=== PATIENT | female | born 1945 | race Caucasian/White ===

== ENCOUNTER 2019-06-04 09:52 | Inpatient (IN) ==
[2019-06-04] MEDS ORDERED: ALBUT/IPRATROP 3MG/0.5MG NEB 3 ML VIAL NEB ONE (09:58)
[2019-06-04] MEDS ORDERED: NITROGLYCERIN 2% OINTMENT 30GM TUBE EXT STA (09:59)
[2019-06-04] MEDS ORDERED: FUROSEMIDE 40 MG/4 ML VIAL IV STA ×3 (10:09→11:25)
--- NOTE | 2019-06-04 10:16 | XRay Report ---
XR chest 1V portable CLINICAL HISTORY: 73 years-old Female presenting with SOB. TECHNIQUE: Portable upright AP view of the chest was obtained. COMPARISON: None. FINDINGS: Atherosclerosis of the aortic arch. Cardiac silhouette enlarged. Mild pulmonary vascular and intersti tial prominence. Bronchial wall cuffing. No focal opacity. Trace bilateral pleural effusions may be p resent. No pneumothorax. Degenerative changes of the thoracic spine. Surgical clips in the right axil la. IMPRESSION: 1. Cardiomegaly. Suspected volume overload and congestive change versus less likely a severe reactiv e or inflammatory airways disease. No merlyn pulmonary edema at this time or focal infiltrate to sugge st pneumonia. ACT 112: Negative or not required by law. Electronically signed by: Marv Tabares M.D. 06/04/2019 10:14 AM
[2019-06-04 10:31] LABS: Partial Thromboplastin Ratio 0.8; Partial Thromboplastin Time 21.4 Seconds (21.0-31.0); Prothrombin Time 10.4 Seconds (9.0-12.0)
[2019-06-04 10:38] LABS: Bilirubin,Total 0.4 mg/dl (0.2-1)
[2019-06-04 10:39] LABS: Hematocrit (blood only) 28.2 % (37-47); Mean Corpuscular Hemoglobin 28.4 pg (25-34); Mean Corpuscular Hgb Conc 28.4 g/dL (32-36); Mean Platelet Volume 11.1 fL (7.4-10.4); Platelet Count 222 K/uL (130-400); RDW Coefficient of Variation 16.3 % (11.5-14.5); Red Blood Count 2.82 M/uL (4.2-5.4); White Blood Count 19.47 K/uL (4.8-10.8)
[2019-06-04 10:40] LABS: Basophilic Stippling 1+; Basophils # (auto) 0.01 K/uL (0-0.2); Basophils % (auto) 0.1 %; Immature Granulocytes # (auto) 0.19 K/uL (0.00-0.02); Lymphocytes # (auto) 2.87 K/uL (1.2-3.4); Lymphocytes % (auto) 14.7 %; Monocytes # (auto) 2.06 K/uL (0.11-0.59); Monocytes % (auto) 10.6 %; Neutrophils # (auto) 14.34 K/uL (1.4-6.5); Neutrophils % (auto) 73.6 %; Polychromasia 1+; Stomatocytes 1+
[2019-06-04 10:41] LABS: Alanine Aminotransferase 23 U/L (12-78); Albumin Globulin Ratio 0.7 (0.9-2); Albumin Level 3.2 gm/dl (3.4-5.0); Alkaline Phosphatase 64 U/L (45-117); Aspartate Aminotransferase 33 U/L (15-37); BUN Creatinine Ratio 21.7 (10-20); Blood Urea Nitrogen 18 mg/dl (7-18); Calcium 9.6 mg/dl (8.5-10.1); Carbon Dioxide 43 mmol/L (21-32); Chloride 96 mmol/L (98-107); Est GFR (African American) 82.3; Globulin 4.9 gm/dl (2.5-4.0); Glucose 207 mg/dl (70-99); Magnesium 2.3 mg/dl (1.8-2.4); Potassium 4.2 mmol/L (3.5-5.1); Sodium 141 mmol/L (136-145); Total Protein 8.1 gm/dl (6.4-8.2); Troponin I < 0.015 ng/ml (0-0.045)
[2019-06-04 10:45] LABS: Base Excess ABG 9.7 mEq/L (-9-1.8); HCO3 ABG 42 mmol/L (19-24); Oxygen Saturation ABG 91.4 % (90-95); PCO2 ABG 126 mmHg (35-46); PO2 ABG 88 mm/Hg (80-95)
[2019-06-04 10:47] LABS: Allen Test Pos (Pos)
[2019-06-04 10:50] LABS: pH ABG 7.14 (7.35-7.45)
[2019-06-04] MEDS ORDERED: cefTRIAXone SODIUM 2,000 MG/70 ML BAG IV STA (11:13)
[2019-06-04] MEDS ORDERED: DOXYCYCLINE HYCLATE 100 MG in DEXTROSE 5% 100 ML IV STA (11:14)
[2019-06-04 11:43] LABS: Thyroid Stimulating Hormone 4.44 uIu/ml (0.300-4.500)
--- NOTE | 2019-06-04 11:59 | History & Physical Report ---
Date of Service June 04, 2019 Assessment & Plan (1) Acute and chronic respiratory failure: Admit to PCU on telemetry Vital signs every 4 hours CTA chest pending to rule out possible pulmonary embolism Continue BiPAP setting Patient is at home on supplemental oxygen approximately 3 L 24/7 Duo nebs every 4 scheduled and as needed as per RT Started ceftriaxone 2 g IV and doxycycline 100 mg IV IV twice daily in the ER Procalcitonin elevated to 0.14 Given Lasix 60, 40 mg IV while patient in the ER. Patient did not respond brisk to the first dose. DVT prophylaxis Lovenox 40 mg subcu daily CODE STATUS DNR/DNI (2) Acute exacerbation of CHF (congestive heart failure): Strict in and out Daily weight Restrict p.o. fluids to 1200 mils per day N.p.o. for now until patient assessed by speech therapist for dysphagia In the past patient was thickening her fluids and food If able to swallow low-sodium diet Monitor electrolytes and replenish Potassium 40 M EQ daily p.o.-start when patient cleared by speech Lasix 40 mg IV twice daily Continue lisinopril 5 mg p.o. daily, Continue metoprolol 25 mg p.o. daily starting tomorrow Aspirin 81 mg p.o. daily Present on Admission?: Yes (3) Anemia: Acute on chronic anemia Pending iron studies Pending serial occult blood Started Rupal sequel Continue monitoring H&H Transfuse if hemoglobin less than 8 Present on Admission?: Yes (4) Altered mental status: CT head pending Patient family denies fall mechanical or syncopal. Present on Admission?: Yes (5) Diabetes mellitus type 2 in obese: Continue two thirds of basal home dose insulin while patient in the hospital and at risk of hypoglycemia Continue sliding scale insulin Accu-Cheks before meals and at bedtime Glycemic control per pharmacy Present on Admission?: Yes (6) Dementia: Patient was lethargic on exam It was hard to determine the degree of patient dementia and type of dementia. Continue aripiprazole 5 mg p.o. daily Present on Admission?: Yes (7) COPD (chronic obstructive pulmonary disease): Continue management as already discussed respiratory failure. Continue home meds tiotropium olodaterol 2 puffs daily, Ventolin HFA 2 puffs every 4 hours as needed. Present on Admission?: Yes (8) GERD (gastroesophageal reflux disease): Continue pantoprazole 40 mg p.o. twice daily Present on Admission?: Yes (9) Hypertension: Continue home medication: Lisinopril 5 mg p.o. daily, metoprolol succinate 25 mg p.o. daily starting tomorrow Furosemide 40 mg p.o. IV twice daily Amiodarone 200 mg p.o. twice daily Present on Admission?: Yes (10) Hyperlipidemia: Lipid panel pending, patient is not on statins. Consider adding statins and or or fish oil after receiving the results. Present on Admission?: Yes (11) Dysphagia: Patient was thickening fluids at home Swallowing evaluation pending N.p.o. for now since lethargic Present on Admission?: Yes (12) Chronic pain: Continue duloxetine 30 mg p.o. twice daily Present on Admission?: Yes (13) Paroxysmal atrial fibrillation: Patient is in sinus rhythm currently Continue amiodarone 200 mg p.o. twice daily Patient is not on anticoagulation at home for paroxysmal A. fib's Probably due to risk of falling. Present on Admission?: Yes (14) HX: breast cancer: Patient's left breast is removed for breast cancer several years ago. Appears to be stable at this time Present on Admission?: Yes (15) Mild mitral regurgitation: TTE pending Ongoing issue Follow-up with TTE Present on Admission?: Yes (16) Schizoaffective disorder: Patient is stable, but lethargic today She does not take any medicine for schizophrenia affective disorder. Present on Admission?: Yes History of Present Illness Chief Complaint: Severe shortness of breath Primary Care Provider: [facility], [facility] The patient is a 73 years old female with past medical history of congestive heart failure, COPD, former smoker for many years, paroxysmal atrial fibrillation's, diabetes mellitus type 2, GERD, depression, hypertension, history of benign positional vertigo, dysphagia who was brought by EMS with a concern that patient was hypoxic while in her [facility] home. Patient moved 10 days ago from [facility] to [place] to be closer to his brother who lives in [place], [place]. Patient is resting in the bed, she is poor historian with BiPAP mask on her face and increased respiratory rate of 31-35, therefore at this point not able to give any history nor ROS but her brother gave pretty detailed history about what patient was going through in the past several months. Apparently in March patient was in [facility] for acute respiratory failure, then in April she was admitted again to the same hospital and ended up in the ICU (patient records are pending from [facility]) and finally 10 days ago patient was again in the admitted to the hospital and discharged from there and in the meantime moved to [place]. Patient is 24/7 supplemental oxygen. She usually uses 3 L, but yesterday and the day before she needed 5L to keep up with her oxygen needs above 92%. Chest x-rays are reviewed and shows cardiomegaly, suspected volume overload and congestive changes versus less likely a severe reactive or inflammatory airways disease. No merlyn pulmonary edema at this time or focal infiltrate to suggest pneumonia. Labs are reviewed: WBC is 19.47, hemoglobin 8, hematocrit 28.2, platelets 222, PT 10.4, INR 1, APTT 21.4, ABG pH 7.14, PCO2 126, PO2 88, bicarb 42, base excess 9.7, sodium 141, potassium 4.2, chloride 96, anion gap 3, BUN 18, creatinine 0.82, GFR 71, magnesium 2.3, total bili 0.4, AST 33, ALT 23, alkaline phosphatase 64, troponin 0.015, BNP 2550, total protein 8.1, albumin 3.2, globulin 4.9, procalcitonin 0.14 , TSH 4.44. Decision was made to admit patient at PCU on telemetry for acute on chronic respiratory failure, acute exacerbation of congestive heart failure, respiratory acidosis and all other comorbidities. Allergies Allergy/AdvReac Type Severity Reaction Status Date / Time prednisone Allergy Rash Unverified 06/04/19 10:41 Sulfa (Sulfonamide Allergy Unknown Unverified 06/04/19 10:41 Antibiotics) Home Medications Home Medications Medication Instructions Recorded Confirmed Type acetaminophen 350 mg PO Q4H PRN 06/04/19 06/04/19 History albuterol sulfate [Ventolin HFA] 2 puff INHALATION Q4H PRN 06/04/19 06/04/19 History amiodarone 200 mg PO BID 06/04/19 06/04/19 History aripiprazole 5 mg PO DAILY 06/04/19 06/04/19 History aspirin [Aspirin Low Dose] 81 mg PO DAILY 06/04/19 06/04/19 History docusate sodium [Stool Softener] 100 mg PO DAILY PRN 06/04/19 06/04/19 History duloxetine 30 mg PO BID 06/04/19 06/04/19 History furosemide 20 mg PO DAILY 06/04/19 06/04/19 History insulin aspart U-100 [Novolog 0 unit SUBCUT QID 06/04/19 06/04/19 History Flexpen U-100 Insulin] insulin glargine [Lantus Solostar 15 unit SUBCUT DAILY 06/04/19 06/04/19 History U-100 Insulin] lisinopril 5 mg PO DAILY 06/04/19 06/04/19 History loperamide 2 mg PO DAILY 06/04/19 06/04/19 History meclizine 25 mg PO TID PRN 06/04/19 06/04/19 History metoprolol succinate 25 mg PO DAILY 06/04/19 06/04/19 History multivitamin [Daily-Supriya] 1 tab PO DAILY 06/04/19 06/04/19 History pantoprazole 40 mg PO BID 06/04/19 06/04/19 History starch (thickening) [Thick-It] 1 ea PO TID 06/04/19 06/04/19 History tiotropium-olodaterol [Stiolto 2 puff INHALATION DAILY 06/04/19 06/04/19 History Respimat] Past Med/Surg History Medical History CHF (congestive heart failure) COPD (chronic obstructive pulmonary disease) Schizoaffective disorder Family History Other Family history non-contributory Social History Preferred Language: Slovak Feels Safe at Home: Yes Smoking Status: Unknown if ever smoked Review of Systems Review of Systems: All systems reviewed & are unremarkable except as noted in HPI & below Physical Exam Constitutional: WD/WN, vitals as above well developed, + ill appearing and + obese Eyes: PERRL, conjunctivae normal, anicteric sclerae ENMT: external ear and nose normal, oropharynx normal Neck: trachea midline, no thyromegaly Respiratory: + respiratory distress, + labored breathing, + uses accessory muscles and + hyperresonance to percussion Auscultation: + crackles, + wheezes and + bronchovesicular breath sounds Cardiovascular: Heart Sounds: normal S1, normal S2, + abnormal opening sounds and + murmur Palpation: + palpable S3 Vessels: + JVD and dorsalis pedis pulses present Extremities: + pedal edema Gastrointestinal (Abdomen): normal bowel sounds, soft, nontender, no hepatosplenomegaly Musculoskeletal: no cyanosis or clubbing, extremities motor strength 5/5 Skin: no rashes, warm and dry Neurologic: PERRL, EOMI, accommodation nl, no face palsy, no dysarthria Lethargic but arousable Psychiatric: A+Ox3, euthymic affect Lymphatic: no cervical or axillary lymphadenopathy Results & Data Vital Signs (Past 12 Hours) Vital Signs Temp Pulse Resp BP Pulse Ox 06/04/19 11:21 91 H 22 98 06/04/19 11:16 76 L 06/04/19 11:15 96 H 133/53 L 81 L 06/04/19 11:01 96 H 39 H 97 06/04/19 11:00 96 H 29 H 162/79 H 96 06/04/19 10:45 97 H 31 H 173/63 H 93 06/04/19 10:30 87 21 195/83 H 93 06/04/19 10:17 83 21 195/79 H 100 06/04/19 10:11 83 22 99 06/04/19 10:02 100 06/04/19 10:00 100 06/04/19 09:58 36.5 C 95 H 30 H 199/110 H 100 Code Status & VTE Plan Code Status DNR/DNI VTE Prophylaxis Plan VTE Prophylaxis will be ordered: Yes PG Care Time/CCT Total # of Minutes Spent Total Time Spent with Patient: Total time spent is greater than 50% in coordination of care (as documented) at patient's floor/unit and/or counseling patient: (1) Anemia Anemia type: unspecified type Qualified Code(s): D64.9 - Anemia, unspecified
[2019-06-04 12:45] LABS: Appearance Urine Turbid (Clear); Bacteria Urine Automated Negative (Negative); Bilirubin Urine Negative (Negative); Blood Urine Trace (Negative); Color Urine Dark Yellow; Epithelial Cell Urine Auto >30 /lpf (0-5); Glucose Urine UA Trace (Negative); Ketones Urine Negative (Negative); Leukocyte Esterase Urine Negative (Negative); Nitrite Urine Negative (Negative); Protein Urine 1+ (Negative); RBC Urine Automated 0-4 /hpf (0-4); Specific Gravity Urine 1.025 (1.000-1.030); Urobilinogen Urine Negative (Negative)
--- NOTE | 2019-06-04 12:59 | Electrocardiogram Report ---
Test Reason : Blood Pressure : / mmHG Vent. Rate : 090 BPM Atrial Rate : 090 BPM P-R Int : 194 ms QRS Dur : 110 ms QT Int : 368 ms P-R-T Axes : 048 033 042 degrees QTc Int : 450 ms Sinus rhythm with marked sinus arrhythmia with occasional Premature ventricular complexes Otherwise normal ECG No previous ECGs available Confirmed by Roby Jansen ([id number]) on 06/04/2019 12:59:25 PM Referred By: [facility] Confirmed By:Roby Jansen
[2019-06-04] MEDS ORDERED: IOVERSOL 100ml IV PRN (13:16)
--- NOTE | 2019-06-04 13:26 | CT Scan Report ---
CT head/brain wo con CLINICAL HISTORY: 73 years-old Female presenting with AMS. TECHNIQUE: Multidetector CT imaging of the head was performed without the use of intravenous contrast . IV contrast: None. One or more dose lowering techniques were used consistent with the principles of ALARA (as low as reasonably achievable), including automatic exposure control, mA or kV adjustment t o individual patient size, and/or use of iterative reconstruction. COMPARISON: None. CT DOSE (mGy.cm): The estimated cumulative dose is 2125.22. FINDINGS: Automatic Mold Sander topogram: Cardiomegaly. Ventricles and sulci normal in size. Hyperdense extra-axial 10 mm focus along the anterior aspect of the right frontal lobe (series 2 image 17). This is favored to represent a partially calcified mass r ather than a focus of hemorrhage. Periventricular and subcortical white matter hypoattenuation, nonsp ecific but likely indicative of chronic small vessel ischemic change. No acute territorial infarct. N o mass effect or midline shift. Bilateral CSF density extra-axial collections suspected along the fro ntal convexities, right greater than left, measuring 14 mm in thickness on the right and 11 mm in thi ckness on the left. Paranasal sinuses and mastoid air cells clear. Calvarium intact. IMPRESSION: 1. 10 mm extra-axial partially calcified mass along the right frontal convexity suspected to represe nt a meningioma. This is not favored to represent hemorrhage. 2. Bilateral subdural CSF density collections along the cerebral convexities consistent with hygroma s and/or chronic subdural hematomas. 3. Chronic small vessel ischemic change. 4. No acute intracranial abnormality. ACT 112: Negative or not required by law. Electronically signed by: Marv Tabares M.D. 06/04/2019 1:24 PM
--- NOTE | 2019-06-04 13:33 | CT Scan Report ---
CT angio chest PE protocol CLINICAL HISTORY: 73 years-old Female presenting with acute respiratory failure, possible pulmonary e mbolus. TECHNIQUE: Multidetector CT angiography of the chest was performed after administration of intravenou s contrast. 3-D volumetric and/or maximum intensity projection (MIP) images were subsequently reconst ructed for review. IV contrast: 102 mL of Optiray 320. One or more dose lowering techniques were used consistent with the principles of ALARA (as low as reasonably achievable), including automatic expos ure control, mA or kV adjustment to individual patient size, and/or use of iterative reconstruction. COMPARISON: None. CT DOSE (mGy.cm): The estimated cumulative dose is 2125.22 mGy.cm. FINDINGS: Airbrush Artist Technical topogram: Cardiomegaly. Pulmonary vasculature: The study is suboptimal for the assessment of the pulmonary vascular tree secondary to timing of the contrast bolus and respiratory motion artifact. Allowing for limited image quality, no central fillin g defect to suggest pulmonary embolus. Main pulmonary artery is not enlarged. No flattening of the in terventricular septum. No intracardiac filling defect. No reflux of contrast into the hepatic veins. Remaining chest: Soft tissues: Normal thyroid and thoracic inlet. No axillary, supraclavicular, mediastinal, or hilar lymphadenopathy. Atherosclerosis of the aorta. Multichamber enlargement of the heart. Coronary artery , aortic valve, and mitral annular calcification. Trace bilateral pleural effusions. Either vicarious excretion of contrast in the gallbladder versus layering gallbladder sludge noted. Lungs and airways: No pneumothorax. The trachea is narrowed likely in part due to the expiratory phas e of contrast. Significant secretions in the trachea. Diffuse bronchial wall thickening. Moderate to severe upper lobe predominant centrilobular emphysema. Respiratory motion artifact degrades evaluatio n of the lung parenchyma. Pulmonary arteries mildly enlarged relative to adjacent bronchi. Mild inter lobular septal thickening at the lung bases. Dependent consolidation consistent with passive atelecta sis in the setting of effusions. Additionally there is multifocal peribronchovascular predominant keaton undglass and nodular infiltrates throughout all 5 lobes though with an upper lobe predominance. The l argest solid nodule on the right is located in the right lower lobe measuring 6 mm (series 8 image 15 2). The largest solid nodule in the left is located in the left lower lobe measuring 8 mm (series 8 i mage 98). Musculoskeletal: Degenerative changes of the spine. IMPRESSION: 1. Allowing for suboptimal image quality, no evidence of pulmonary embolus. 2. Multifocal mild peribronchovascular groundglass and nodular infiltrates throughout all 5 lobes co nsistent with developing multifocal pneumonia or inflammatory pneumonitis. 3. Cardiomegaly with mild volume overload and congestive change with trace bilateral pleural effusio ns. 4. Multiple solid pulmonary nodules measuring up to 8 mm. Follow-up per Fleischner Society 2017 john mmendations below. 5. Smoking-related lung injury with moderate to severe emphysema and bronchitis. Summary of Fleischner Society 2017 Recommendations (H Jaren et al. Guidelines for management of i ncidental pulmonary nodules detected on CT images: From the Fleischner Society 2017. Radiology 2017; 284: 228-243.) SOLID NODULES Single nodule; size < 6 mm * Low risk patients: No routine follow-up * High risk patients: Optional CT at 12 months Single nodule; size 6-8 mm * Low risk patients: CT at 6-12 months, then consider CT at 18-24 months * High risk patients: CT at 6-12 months, then at 18-24 months Single nodule; size > 8 mm * Either low or high risk patients: Consider CT at 3 months, PET/CT, or tissue sampling Multiple nodules; size < 6 mm * Low risk patients: No routine follow up * High risk patients: Optional CT at 12 months Multiple nodules; size 6-8 mm * Low risk patients: CT at 3-6 months, then consider CT at 18-24 months * High risk patients: CT at 3-6 months, then at 18-24 months Multiple nodules; size > 8 mm * Low risk patients: CT at 3-6 months, then consider at 18-24 months * High risk patients: CT at 3-6 months, then at 18-24 months SUBSOLID NODULES Single ground-glass nodule * Nodule size < 6 mm: No routine follow-up * Nodule size > or = 6 mm: CT at 6-12 months to confirm persistence, then CT every 2 years until 5 y ears Single part-solid nodule * Nodule size < 6 mm: No routine follow-up * Nodules size > or = 6 mm: CT at 3-6 months to confirm persistence. If unchanged and solid componen t remains < 6 mm, annual CT should be performed for 5 years Multiple nodules * Nodule size < 6 mm: CT at 3-6 months. If stable, consider CT at 2 and 4 years. * Nodules size > or = 6 mm: CT at 3-6 months. Subsequent management based on the most suspicious nod ule(s) NOTE: 1) These guidelines apply to incidental nodules. These guidelines do NOT apply to patients younger th an 35 years, immunocompromised patients, or patients with cancer. 2) Risk categories: * Low risk patients: Minimal or absent history of smoking and/or other known risk factors * High risk patients: History of smoking, exposure to other carcinogens, emphysema, fibrosis, upper lobe location, family history of lung cancer, etc. 3) If a nodule up to 8 mm is partly solid or is ground glass, further follow-up is required after 24 months to exclude possible slow growing adenocarcinoma. ACT 112: Negative or not required by law. Electronically signed by: Marv Tabares M.D. 06/04/2019 1:32 PM
[2019-06-04] MEDS ORDERED: MECLIZINE HCL 25 MG TAB PO PRN (13:38)
[2019-06-04] MEDS ORDERED: GLUCAGON FOR INJ 1 MG VIAL SQ PRN (13:38)
[2019-06-04] MEDS ORDERED: DOCUSATE SODIUM 100 MG CAP PO PRN (13:38)
[2019-06-04] MEDS ORDERED: DEXTROSE 50% 50 ML SYRINGE IV PRN (13:38)
[2019-06-04] MEDS ORDERED: MAGNESIUM HYDROXIDE SUSP 30 ML UDC PO PRN (13:38)
[2019-06-04] MEDS ORDERED: POLYETHYLENE (MIRALAX) 17 GM PACK PO PRN (13:38)
[2019-06-04] MEDS ORDERED: ENOXAPARIN INJ 40 MG/0.4 ML SYR SQ SCH (13:38)
[2019-06-04] MEDS ORDERED: ALUMINUM/MAGNESIUM SUSP 30 ML UDC PO PRN (13:38)
[2019-06-04] MEDS ORDERED: ALBUTEROL HFA 8 GM INHALER INH PRN (13:38)
[2019-06-04] MEDS ORDERED: GLUCOSE 40% GEL 15 GM TUBE PO PRN (13:38)
[2019-06-04] MEDS ORDERED: GLUCOSE 10 TABS/TUBE PO PRN (13:38)
[2019-06-04] MEDS ORDERED: PHARMACY GLYCEMIC MGMT CONSULT PRN (14:16)
--- NOTE | 2019-06-04 14:40 | Pharmacy Report ---
Glycemic Control Consultation - Date of Service June 04, 2019 - Scope Scope: Glycemic Pharmacist consulted by Dr Shaw on 06/04/19 for glycemic control and to write orders per [facility] inpatient glycemic control protocol - Objective Weight: 69 kg Accuchecks BSG (last 24hrs): 06/04/19 10:00 Glucose 207 H Laboratory Data (last 24hrs): 06/04/19 10:00 Potassium 4.2 Carbon Dioxide 43 H* Anion Gap 3.0 Creatinine 0.82 Est Cr Clr Drug Dosing Not Reportable - Recent Pertinent Medications Outpatient Anti-diabetic Regimen: * Lantus 15 units Qam, Novolog SSI * A1c = pending Risk Factors for Insulin Resistance: * Diet: NPO - Assessment & Plan Assessment & Plan: ASSESSMENT: * 73 year old female admitted with respiratory failure, possible GI bleed. Pharmacy consulted for glycemic management. Patient currently NPO. * Patient typically on Lantus/Novolog outpatient. Did confirm with nurse at [facility] that patient did not receive any insulin this morning prior to admission. * BSG around 1000 this morning 207 mg/dL - will start reduced basal dose for NPO status and bolus insulin for glycemic management. PLAN FOR INPATIENT GLYCEMIC CONTROL: * Basal insulin * Lantus 13 units x 1 (slightly reduced for NPO status) * Will reassess BSGs/PO status tomorrow morning to determine further basal requirements * Bolus insulin * NovoLog per scale ACHS or Q6hrs while NPO * Goal Range: Low 110 mg/dL - High 140 mg/dL * Correction Factor: 30 mg/dL/unit * Nutritional / Prandial insulin per carb ratio of 1 unit per 10 grams CHO consumed * Please note that the plan above was derived based on current level of insulin resistance and hospital stress. These recommendations are appropriate for inpatient admission only. Plan of care upon discharge will need to be reassessed to avoid potential outpatient hypo/hyperglycemia. Thank you.
[2019-06-04] MEDS ORDERED: INSULIN GLARGINE SOLOSTAR 100 UNITS/ML 3 ML PEN SQ ONE (14:42)
[2019-06-04] MEDS: metroNIDAZOLE 500 MG/100 ML BAG IV SCH ×2 (15:22→22:17)
[2019-06-04] MEDS: ALBUT/IPRATROP 3MG/0.5MG NEB 3 ML VIAL NEB SCH ×3 (15:26→23:20)
[2019-06-04] MEDS: INSULIN ASPART 100 UNITS/ML 3 ML PEN SC SCH ×2 (15:34→18:34)
[2019-06-04] MEDS ORDERED: PNEUMOCOCCAL Polysaccharide Vaccine 25mcg/0.5mL vial/Syr IM ONE (16:15)
[2019-06-04] MEDS ORDERED: INFLUENZA Vaccine HIGH DOSE 65+yrs 0.5 mL Syr IM ONE (16:15)
--- NOTE | 2019-06-04 16:35 | Emergency Department Note ---
Entered by Prabhakar Du acting as a scribe for Sylvester Mott MD History of Present Illness General Chief complaint: Respiratory Problems Time Seen by Provider: 06/04/19 09:57 Source: EMS History of Present Illness Location: chest Pain Consistency: + other (worsening) Treatments prior to arrival: other (Duoneb and solumedrol) The patient is a 73 year old female who presents to the Emergency Room with complaints of SOB that is worse today. EMS states the patient stated she was SOB for a while but she is worse today. EMS states the patient wears 2L oxygen all the time. EMS states the patient was hypoxic and she was put on a non-breather that put her at 100% oxygen saturation. EMS states the patient feels cold and is diaphoretic. EMS states the patient was given a Duoneb and Solu-Medrol IV. EMS states the patient takes Lasix. EMS states the patient has not been eating well. EMS states the patient has been refusing NovoLog but they are unsure how long she has been refusing it. HPI is limited due to respiratory distress and mental state. Home Medications Home Medications Medication Instructions Recorded Confirmed Type acetaminophen 350 mg PO Q4H PRN 06/04/19 06/04/19 History albuterol sulfate [Ventolin HFA] 2 puff INHALATION Q4H PRN 06/04/19 06/04/19 History amiodarone 200 mg PO BID 06/04/19 06/04/19 History aripiprazole 5 mg PO DAILY 06/04/19 06/04/19 History aspirin [Aspirin Low Dose] 81 mg PO DAILY 06/04/19 06/04/19 History docusate sodium [Stool Softener] 100 mg PO DAILY PRN 06/04/19 06/04/19 History duloxetine 30 mg PO BID 06/04/19 06/04/19 History furosemide 20 mg PO DAILY 06/04/19 06/04/19 History insulin aspart U-100 [Novolog 0 unit SUBCUT QID 06/04/19 06/04/19 History Flexpen U-100 Insulin] insulin glargine [Lantus Solostar 15 unit SUBCUT DAILY 06/04/19 06/04/19 History U-100 Insulin] lisinopril 5 mg PO DAILY 06/04/19 06/04/19 History loperamide 2 mg PO DAILY 06/04/19 06/04/19 History meclizine 25 mg PO TID PRN 06/04/19 06/04/19 History metoprolol succinate 25 mg PO DAILY 06/04/19 06/04/19 History multivitamin [Daily-Supriya] 1 tab PO DAILY 06/04/19 06/04/19 History pantoprazole 40 mg PO BID 06/04/19 06/04/19 History starch (thickening) [Thick-It] 1 ea PO TID 06/04/19 06/04/19 History tiotropium-olodaterol [Stiolto 2 puff INHALATION DAILY 06/04/19 06/04/19 History Respimat] Allergies Allergy/AdvReac Type Severity Reaction Status Date / Time prednisone Allergy Rash Unverified 06/04/19 10:41 Sulfa (Sulfonamide Allergy Unknown Unverified 06/04/19 10:41 Antibiotics) Past Med/Surg History Medical History CHF (congestive heart failure) COPD (chronic obstructive pulmonary disease) Schizoaffective disorder Family History Other Family history non-contributory Social History Preferred Language: Mongolian Communication Ability: Effective Wellness Program Administrator Required: No marital status: Unknown Current Living Situation: Personal Care Facility Feels Safe at Home: Yes Smoking Status: Former smoker Second Hand Exposure: No ; Hx Alcohol Use: No Hx Substance Use: No Review of Systems Other (Unobtainable due to respiratory distress and mental state) Physical Exam Vital Signs Vital Signs - 24 hr 06/04/19 09:58 06/04/19 10:00 06/04/19 10:02 Temperature 36.5 C Temperature Source Oral Pulse Rate 95 H Pulse Rate [Right Radial] Pulse Rate from SpO2 Sensor Respiratory Rate 30 H Respiratory Effort / Characteristics Accessory Muscle Use Respiratory Depth Shallow Respiratory Pattern Tachypnea Blood Pressure 199/110 H Blood Pressure Mean 139 Pulse Oximetry 100 100 100 Oxygen Delivery Method Non-rebreather Non-rebreather BiPAP Oxygen Flow Rate 15 15 Fraction of Inspired Oxygen Sepsis Recent Fever Within 48 Hours No Sepsis New/Unexplained Change in Mental Status No Sepsis Action Taken by Nursing No Action Required 06/04/19 10:11 06/04/19 10:17 06/04/19 10:20 Temperature Temperature Source Pulse Rate 83 83 Pulse Rate [Right Radial] 94 H Pulse Rate from SpO2 Sensor 83 Respiratory Rate 22 21 20 Respiratory Effort / Characteristics Non-Labored Spontaneous Respiratory Depth Respiratory Pattern Blood Pressure 195/79 H Blood Pressure Mean 89 Pulse Oximetry 99 100 100 Oxygen Delivery Method BiPAP BiPAP Oxygen Flow Rate 8 Fraction of Inspired Oxygen 28 28 Sepsis Recent Fever Within 48 Hours Sepsis New/Unexplained Change in Mental Status Sepsis Action Taken by Nursing 06/04/19 10:30 06/04/19 10:33 06/04/19 10:45 Temperature Temperature Source Pulse Rate 87 97 H Pulse Rate [Right Radial] Pulse Rate from SpO2 Sensor 93 H 97 H Respiratory Rate 21 31 H Respiratory Effort / Characteristics Respiratory Depth Respiratory Pattern Blood Pressure 195/83 H 173/63 H Blood Pressure Mean 104 72 Pulse Oximetry 93 93 Oxygen Delivery Method BiPAP BiPAP BiPAP Oxygen Flow Rate 98 Fraction of Inspired Oxygen Sepsis Recent Fever Within 48 Hours Sepsis New/Unexplained Change in Mental Status Sepsis Action Taken by Nursing 06/04/19 11:00 06/04/19 11:01 06/04/19 11:15 Temperature Temperature Source Pulse Rate 96 H 96 H 96 H Pulse Rate [Right Radial] Pulse Rate from SpO2 Sensor 96 H 95 H 96 H Respiratory Rate 29 H 39 H Respiratory Effort / Characteristics Respiratory Depth Respiratory Pattern Blood Pressure 162/79 H 133/53 L Blood Pressure Mean 115 84 Pulse Oximetry 96 97 81 L Oxygen Delivery Method Oxygen Flow Rate Fraction of Inspired Oxygen Sepsis Recent Fever Within 48 Hours Sepsis New/Unexplained Change in Mental Status Sepsis Action Taken by Nursing 06/04/19 11:16 06/04/19 11:21 Temperature Temperature Source Pulse Rate 91 H Pulse Rate [Right Radial] Pulse Rate from SpO2 Sensor 97 H Respiratory Rate 22 Respiratory Effort / Characteristics Accessory Muscle Use Respiratory Depth Shallow Respiratory Pattern Tachypnea Blood Pressure Blood Pressure Mean Pulse Oximetry 76 L 98 Oxygen Delivery Method BiPAP Oxygen Flow Rate 98 Fraction of Inspired Oxygen 28 Sepsis Recent Fever Within 48 Hours Sepsis New/Unexplained Change in Mental Status Sepsis Action Taken by Nursing GENERAL: Patient is in significant respiratory distress. HEENT: No acute trauma, normocephalic atraumatic, mucous membranes moist, no nasal congestion, no scleral icterus. NECK: No stridor, no adenopathy, no meningismus, trachea is midline. LUNGS: Markedly diminished breath sounds. Few crackles and few wheezes heard. Appears to be in significant respiratory distress. Accessory muscle use. Increased respiratory rate. HEART: Without murmurs gallops or rubs, regular rate and rhythm. ABDOMEN: Soft, nontender, bowel sounds positive, no hernias, no peritonitis. EXTREMITIES: No cyanosis or edema, full range of motion of all the joints without pain or difficulty, no signs for acute trauma. NEUROLOGIC: Somnolent. Arouses to voice or touch. Does move all extremities. SKIN: Sweaty. Pale. Extremities are cool to tough. Course Course 0954: The patient was evaluated in room B10, and a complete history and physical examination were performed. 0957: The patient is DNR. 1030: I spoke to the patient's brother who is the POA. He confirms the patient is DNR. He states the patient was at a hospital in [place] for the same thing recently. He states he moved the patient here to be closer to her. He states the patient has only been at [facility] for about a week. 1055: I discussed the patient's case with Dr. Shaw - [facility]. She will evaluate the patient for further management. 1121: I reevaluated the patient. She looks a little better. She is more awake and her BP has improved. She is starting to diurese. Administered Medications Albuterol (Duoneb) 3 ml NEB Q4R [facility] Stop: 07/04/19 14:59 Last Admin: 06/04/19 15:26 Dose: 3 ml Documented by: [id number] Furosemide 40 mg/ Syringe 4 mls @ 4 mls/min IV [id number] [facility] Stop: 07/04/19 16:59 Last Admin: 06/04/19 17:50 Dose: 4 mls/min Documented by: [id number] Metronidazole (Flagyl) 500 mg in 100 mls @ 100 mls/hr IV Q8 [facility] Stop: 06/11/19 14:14 Last Infusion: 06/04/19 16:33 Dose: 0 mls/hr Documented by: [id number] Admin: 06/04/19 15:22 Dose: 100 mls/hr Documented by: [id number] Insulin Aspart (Novolog Flexpen) 0 units SC Q6 [facility]; Protocol Stop: 07/04/19 14:29 Last Admin: 06/04/19 15:34 Dose: 5 units Documented by: [id number] Cosigned by: [id number] Ioversol (Optiray 320 100ml) 102 ml IV ONCE PRN PRN Reason: Interaction Checking Stop: 06/08/19 13:15 Last Admin: 06/04/19 13:17 Dose: 102 ml Documented by: [id number] Discontinued Medications Albuterol (Duoneb) 12 ml NEB ONE ONE Stop: 06/04/19 09:59 Last Admin: 06/04/19 10:21 Dose: 12 ml Documented by: [id number] Furosemide (Lasix) 60 mg IV NOW STA Stop: 06/04/19 10:10 Last Admin: 06/04/19 10:17 Dose: 60 mg Documented by: [id number] Furosemide (Lasix) 40 mg IV NOW STA Stop: 06/04/19 11:26 Last Admin: 06/04/19 11:40 Dose: 40 mg Documented by: [id number] Ceftriaxone Sodium (Rocephin) 2,000 mg in 70 mls @ 140 mls/hr IV NOW STA Stop: 06/04/19 11:42 Last Infusion: 06/04/19 12:53 Dose: 0 mls/hr Documented by: [id number] Admin: 06/04/19 12:23 Dose: 140 mls/hr Documented by: [id number] Doxycycline Hyclate 100 mg/ (Dextrose) 110 mls @ 50 mls/hr IV NOW STA Stop: 06/04/19 13:25 Last Infusion: 06/04/19 15:55 Dose: 0 mls/hr Documented by: [id number] Admin: 06/04/19 12:23 Dose: 50 mls/hr Documented by: [id number] Insulin Glargine (Lantus Solostar Pen) 13 units SQ NOW ONE; Protocol Stop: 06/04/19 14:43 Last Admin: 06/04/19 15:33 Dose: 13 units Documented by: [id number] Cosigned by: [id number] Nitroglycerin (Nitro-Bid 2%) 3 inch EXT NOW STA Stop: 06/04/19 10:00 Last Admin: 06/04/19 10:05 Dose: 3 inch Documented by: [id number] Critical Care Time Critical Care Time: Yes Total Critical Care Time: 48 I have personally spent 48 minutes of critical care time in the direct management of this patient. This includes bedside care, interpretation of diagnostic studies, and testing, discussion with consultants, patient, and [facility], and other required patient management activities. This 48 minutes is in excess of all separately billable procedures. Medical Decision Making Differential Diagnosis Differential Diagnosis includes but is not limited to CHF, pneumonia, exacerbation of COPD, pnuemothroax, bronchitis, [place], electrolyte imbalance, ane brian, and renal failure. Medical Records Attestation: I reviewed the patient's medical records. Home Medications Current Medication List: was personally reviewed by me Laboratory Data Attestation: I reviewed the patient's lab results. Result diagrams: 06/04/19 10:00 06/04/19 10:00 Lab Results 06/04/19 06/04/19 06/04/19 Range/Units 10:00 10:00 10:00 WBC 19.47 H (4.8-10.8) K/uL RBC 2.82 L (4.2-5.4) M/uL Hgb 8.0 L (12.0-16.0) g/dL Hct 28.2 L (37-47) % MCV 100.0 (80-100) fL MCH 28.4 (25-34) pg MCHC 28.4 L (32-36) g/dL RDW Std Deviation 58.0 H (36.4-46.3) fL RDW Coeff of Cydney 16.3 H (11.5-14.5) % Plt Count 222 (130-400) K/uL MPV 11.1 H (7.4-10.4) fL Immature Gran % (Auto) 1.0 % Neut % (Auto) 73.6 % Lymph % (Auto) 14.7 % Aiken % (Auto) 10.6 % Eos % (Auto) 0.0 % Baso % (Auto) 0.1 % Immature Gran # (Auto) 0.19 H (0.00-0.02) K/uL Neut # (Auto) 14.34 H (1.4-6.5) K/uL Lymph # (Auto) 2.87 (1.2-3.4) K/uL Aiken # (Auto) 2.06 H (0.11-0.59) K/uL Eos # (Auto) 0.00 (0-0.5) K/uL Baso # (Auto) 0.01 (0-0.2) K/uL Polychromasia 1+ Basophilic Stippling 1+ Stomatocytes 1+ PT 10.4 (9.0-12.0) Seconds INR 1.0 (0.9-1.1) APTT 21.4 (21.0-31.0) Seconds PTT Ratio 0.8 ABG pH (7.35-7.45) ABG pCO2 (35-46) mmHg ABG pO2 (80-95) mm/Hg ABG HCO3 (19-24) mmol/L ABG O2 Saturation (90-95) % ABG Base Excess (-9-1.8) mEq/L Anuj Test (Pos) Barometric Pressure mm/Hg Oxygen Given Sodium 141 (136-145) mmol/L Potassium 4.2 (3.5-5.1) mmol/L Chloride 96 L (98-107) mmol/L Carbon Dioxide 43 H* (21-32) mmol/L Anion Gap 3.0 (3-11) BUN 18 (7-18) mg/dl Creatinine 0.82 (0.6-1.2) mg/dl Est Cr Clr Drug Dosing Not Reportable Est GFR ( Amer) 82.3 Est GFR (Non-Af Amer) 71.0 BUN/Creatinine Ratio 21.7 H (10-20) Glucose 207 H (70-99) mg/dl Calcium 9.6 (8.5-10.1) mg/dl Magnesium 2.3 (1.8-2.4) mg/dl Total Bilirubin 0.4 (0.2-1) mg/dl AST 33 (15-37) U/L ALT 23 (12-78) U/L Alkaline Phosphatase 64 (45-117) U/L Troponin I < 0.015 (0-0.045) ng/ml NT-Pro-B Natriuret Pep (0-900) pg/ml Total Protein 8.1 (6.4-8.2) gm/dl Albumin 3.2 L (3.4-5.0) gm/dl Globulin 4.9 H (2.5-4.0) gm/dl Albumin/Globulin Ratio 0.7 L (0.9-2) Procalcitonin (0-0.5) ng/ml TSH (0.300-4.500) uIu/ml Urine Color Urine Appearance (Clear) Urine pH (4.5-7.5) Ur Specific Badger (1.000-1.030) Urine Protein (Negative) Urine Glucose (UA) (Negative) Urine Ketones (Negative) Urine Blood (Negative) Urine Nitrite (Negative) Urine Bilirubin (Negative) Urine Urobilinogen (Negative) Ur Leukocyte Esterase (Negative) Urine WBC (Auto) (0-5) /hpf Urine RBC (Auto) (0-4) /hpf U Hyaline Cast (Auto) (0-5) /lpf U Epithel Cells (Auto) (0-5) /lpf Urine Bacteria (Auto) (Negative) Hepatitis C Ab Screen (Neg) 06/04/19 06/04/19 06/04/19 Range/Units 10:00 10:00 10:00 WBC (4.8-10.8) K/uL RBC (4.2-5.4) M/uL Hgb (12.0-16.0) g/dL Hct (37-47) % MCV (80-100) fL MCH (25-34) pg MCHC (32-36) g/dL RDW Std Deviation (36.4-46.3) fL RDW Coeff of Cydney (11.5-14.5) % Plt Count (130-400) K/uL MPV (7.4-10.4) fL Immature Gran % (Auto) % Neut % (Auto) % Lymph % (Auto) % Aiken % (Auto) % Eos % (Auto) % Baso % (Auto) % Immature Gran # (Auto) (0.00-0.02) K/uL Neut # (Auto) (1.4-6.5) K/uL Lymph # (Auto) (1.2-3.4) K/uL Aiken # (Auto) (0.11-0.59) K/uL Eos # (Auto) (0-0.5) K/uL Baso # (Auto) (0-0.2) K/uL Polychromasia Basophilic Stippling Stomatocytes PT (9.0-12.0) Seconds INR (0.9-1.1) APTT (21.0-31.0) Seconds PTT Ratio ABG pH (7.35-7.45) ABG pCO2 (35-46) mmHg ABG pO2 (80-95) mm/Hg ABG HCO3 (19-24) mmol/L ABG O2 Saturation (90-95) % ABG Base Excess (-9-1.8) mEq/L Anuj Test (Pos) Barometric Pressure mm/Hg Oxygen Given Sodium (136-145) mmol/L Potassium (3.5-5.1) mmol/L Chloride (98-107) mmol/L Carbon Dioxide (21-32) mmol/L Anion Gap (3-11) BUN (7-18) mg/dl Creatinine (0.6-1.2) mg/dl Est Cr Clr Drug Dosing Est GFR ( Amer) Est GFR (Non-Af Amer) BUN/Creatinine Ratio (10-20) Glucose (70-99) mg/dl Calcium (8.5-10.1) mg/dl Magnesium (1.8-2.4) mg/dl Total Bilirubin (0.2-1) mg/dl AST (15-37) U/L ALT (12-78) U/L Alkaline Phosphatase (45-117) U/L Troponin I (0-0.045) ng/ml NT-Pro-B Natriuret Pep 2550 H (0-900) pg/ml Total Protein (6.4-8.2) gm/dl Albumin (3.4-5.0) gm/dl Globulin (2.5-4.0) gm/dl Albumin/Globulin Ratio (0.9-2) Procalcitonin 0.14 (0-0.5) ng/ml TSH 4.440 (0.300-4.500) uIu/ml Urine Color Urine Appearance (Clear) Urine pH (4.5-7.5) Ur Specific Badger (1.000-1.030) Urine Protein (Negative) Urine Glucose (UA) (Negative) Urine Ketones (Negative) Urine Blood (Negative) Urine Nitrite (Negative) Urine Bilirubin (Negative) Urine Urobilinogen (Negative) Ur Leukocyte Esterase (Negative) Urine WBC (Auto) (0-5) /hpf Urine RBC (Auto) (0-4) /hpf U Hyaline Cast (Auto) (0-5) /lpf U Epithel Cells (Auto) (0-5) /lpf Urine Bacteria (Auto) (Negative) Hepatitis C Ab Screen Neg (Neg) 06/04/19 06/04/19 Range/Units 10:20 10:32 WBC (4.8-10.8) K/uL RBC (4.2-5.4) M/uL Hgb (12.0-16.0) g/dL Hct (37-47) % MCV (80-100) fL MCH (25-34) pg MCHC (32-36) g/dL RDW Std Deviation (36.4-46.3) fL RDW Coeff of Cydney (11.5-14.5) % Plt Count (130-400) K/uL MPV (7.4-10.4) fL Immature Gran % (Auto) % Neut % (Auto) % Lymph % (Auto) % Aiken % (Auto) % Eos % (Auto) % Baso % (Auto) % Immature Gran # (Auto) (0.00-0.02) K/uL Neut # (Auto) (1.4-6.5) K/uL Lymph # (Auto) (1.2-3.4) K/uL Aiken # (Auto) (0.11-0.59) K/uL Eos # (Auto) (0-0.5) K/uL Baso # (Auto) (0-0.2) K/uL Polychromasia Basophilic Stippling Stomatocytes PT (9.0-12.0) Seconds INR (0.9-1.1) APTT (21.0-31.0) Seconds PTT Ratio ABG pH 7.14 L* (7.35-7.45) ABG pCO2 126 H (35-46) mmHg ABG pO2 88 (80-95) mm/Hg ABG HCO3 42 H (19-24) mmol/L ABG O2 Saturation 91.4 (90-95) % ABG Base Excess 9.7 H (-9-1.8) mEq/L Anuj Test Pos (Pos) Barometric Pressure 742.2 mm/Hg Oxygen Given 28% Sodium (136-145) mmol/L Potassium (3.5-5.1) mmol/L Chloride (98-107) mmol/L Carbon Dioxide (21-32) mmol/L Anion Gap (3-11) BUN (7-18) mg/dl Creatinine (0.6-1.2) mg/dl Est Cr Clr Drug Dosing Est GFR ( Amer) Est GFR (Non-Af Amer) BUN/Creatinine Ratio (10-20) Glucose (70-99) mg/dl Calcium (8.5-10.1) mg/dl Magnesium (1.8-2.4) mg/dl Total Bilirubin (0.2-1) mg/dl AST (15-37) U/L ALT (12-78) U/L Alkaline Phosphatase (45-117) U/L Troponin I (0-0.045) ng/ml NT-Pro-B Natriuret Pep (0-900) pg/ml Total Protein (6.4-8.2) gm/dl Albumin (3.4-5.0) gm/dl Globulin (2.5-4.0) gm/dl Albumin/Globulin Ratio (0.9-2) Procalcitonin (0-0.5) ng/ml TSH (0.300-4.500) uIu/ml Urine Color Dark Yellow Urine Appearance Turbid A (Clear) Urine pH 5.0 (4.5-7.5) Ur Specific Badger 1.025 (1.000-1.030) Urine Protein 1+ H (Negative) Urine Glucose (UA) Trace H (Negative) Urine Ketones Negative (Negative) Urine Blood Trace H (Negative) Urine Nitrite Negative (Negative) Urine Bilirubin Negative (Negative) Urine Urobilinogen Negative (Negative) Ur Leukocyte Esterase Negative (Negative) Urine WBC (Auto) 1-5 (0-5) /hpf Urine RBC (Auto) 0-4 (0-4) /hpf U Hyaline Cast (Auto) 10-30 H (0-5) /lpf U Epithel Cells (Auto) >30 H (0-5) /lpf Urine Bacteria (Auto) Negative (Negative) Hepatitis C Ab Screen (Neg) Imaging Data Radiologist's Impression: Radiology results as stated below per my review and the radiologist's interpretation: XR chest 1V portable CLINICAL HISTORY: 73 years-old Female presenting with SOB. TECHNIQUE: Portable upright AP view of the chest was obtained. COMPARISON: None. FINDINGS: Atherosclerosis of the aortic arch. Cardiac silhouette enlarged. Mild pulmonary vascular and interstitial prominence. Bronchial wall cuffing. No focal opacity. Trace bilateral pleural effusions may be present. No pneumothorax. Degenerative changes of the thoracic spine. Surgical clips in the right axilla. IMPRESSION: 1. Cardiomegaly. Suspected volume overload and congestive change versus less likely a severe reactive or inflammatory airways disease. No merlyn pulmonary edema at this time or focal infiltrate to suggest pneumonia. ACT 112: Negative or not required by law. Electronically signed by: Marv Tabares M.D. 06/04/2019 10:14 AM ECG Data Attestation: I personally reviewed and interpreted this ECG as follows: Rate (beats per minute): 90 Rhythm: + sinus rhythm ECG Intervals/blocks: + Normal QT-c (QT-c is 450) ECG ST segments: no ST elevation ECG Findings: + PACs, + PVCs and + Other (Artifact present) MDM Narrative There is a significant leukocytosis at 19,000, this could be consistent with infection or the stress of her presentation. The patient was anemic with a hemoglobin of 8. Platelet count was normal. No coagulopathy. ABG shows a respiratory acidosis with a pH of 7.14 and a PCO2 of 126. Renal panel testing shows a higher CO2 value, no kidney failure. No concerning liver enzyme elevation. EKG shows a sinus rhythm, there was no acute ischemia. Cardiac enzyme testing x1 is not consistent with acute cardiac injury. Urinalysis does not show evidence for infection. Chest film shows some CHF, I did not see any evidence for pneumonia, there was no pneumothorax. On exam, the patient was quite short of breath. She seemed in respiratory distress. Looking through her paperwork, she is a DNR. The patient was aggressively managed. She was placed on BiPAP with a continuous DuoNeb. She was given IV Lasix 60 mg. She had a Nation catheter placed to monitor her urine output. She was placed on 3 inches of nitroglycerin paste. The patient is somewhat improved compared to when she first arrived. She seems to be responding favorably to the above treatment. I spoke to the patient, I spoke with her brother who is the power of synthetic cloth binding cutter. Both understand the seriousness of her condition. The patient appears to be in respiratory distress secondary to fluid overload and CHF. She had a very similar recent admission to a different hospital. I spoke to case management, I spoke with the on-call hospitalist. Admission paperwork is underway. Impression & Plan Respiratory failure, CHF (congestive heart failure), Respiratory distress, Confusion, Anemia, Respiratory acidosis Discharge Plan Visit Data *Final* Discharge Date/Time: 06/04/19 12:52 Chief Complaint: Respiratory Problems ED Provider: Sylvester Mott Discharge Problem: Respiratory failure, CHF (congestive heart failure), Respiratory distress, Confusion, Anemia, Respiratory acidosis Patient Disposition: Admitted As Inpatient Discharge Instructions Interventions: ED Discharge Assessment Last Done: 06/04/19 12:52 Discharge Problem: Respiratory failure Qualifiers: Chronicity: unspecified Respiratory failure complication: hypoxia and hypercapnia Qualified Code(s): J96.91 - Respiratory failure, unspecified with hypoxia CHF (congestive heart failure) Qualifiers: Heart failure type: unspecified Heart failure chronicity: acute Qualified Code(s): I50.9 - Heart failure, unspecified Anemia Qualifiers: Anemia type: unspecified type Qualified Code(s): D64.9 - Anemia, unspecified The scribe's documentation has been prepared under my direction and personally reviewed by me in its entirety. I confirm that the note above accurately reflects all work, treatment, procedures, and medical decision making performed by me.
[2019-06-04 16:52] LABS: Influenza A virus by PCR Neg for Influ A (Neg); Influenza B virus by PCR Neg for Influ B (Neg)
[2019-06-04] MEDS ORDERED: Nursing to Pharmacy Communication ONE (17:46)
[2019-06-04] MEDS: FUROSEMIDE 40 MG in SYRINGE 0 ML IV SCH (17:50)
--- NOTE | 2019-06-04 19:35 | Magnetic Resonance Report ---
MRI OF THE BRAIN WITHOUT CONTRAST CLINICAL HISTORY: Acute change in mental status. Abnormal head CT. Possible meningioma versus hemorrh age. Bilateral subdural fluid collections. COMPARISON STUDY: Noncontrast head CT dated 06/04/2019 FINDINGS: Sagittal T1, axial diffusion, proton density and T2 weighted axial, coronal FLAIR, and axial T1-weigh vamshi images were acquired. There is a 12 mm right frontal extra-axial mass. The location is typical for a meningioma. This paral lels T1 and T2 parenchymal signal. As this study is performed in a noncontrast fashion, enhancement c haracteristics cannot be assessed. There are bifrontal CSF signal intensity fluid collections consist ent with small subdural hygromas. There is no evidence of acute hemorrhage. Axial diffusion-weighted images reveal no evidence of acute or subacute infarction. There is no evidence of ventricular dilatation. Proton density T2-weighted and FLAIR images reveal scattered foci of increased T2 signal within the w shima matter, likely on a small vessel basis. There are no abnormal flow voids. Foci of increased T2 signal within the right mastoid are likely inflammatory. IMPRESSION: 1. No acute intracranial findings 2. No evidence of acute or subacute infarction 3. 12 mm extra-axial right frontal lesion, likely representing a meningioma 4. Bilateral subdural CSF collections, consistent with chronic hygromas. No evidence of acute hemorrh age 5. Mild inflammatory changes within the right mastoid ACT 112: Negative or not required by law. Electronically signed by: Stefano Arthur M.D. 06/04/2019 7:33 PM
[2019-06-04] MEDS ORDERED: FUROSEMIDE 40 MG/4 ML VIAL IV SCH (21:00)
[2019-06-04] MEDS: AMIODARONE 200 MG TAB PO SCH (21:38)
[2019-06-04] MEDS: DULOXETINE HCL 30 MG CAP PO SCH (21:38)
[2019-06-04] MEDS: PANTOprazole 40 MG TAB PO SCH (21:39)
[2019-06-04] MEDS: DOXYCYCLINE HYCLATE 100 MG in DEXTROSE 5% 100 ML IV SCH (22:17)
[2019-06-05] MEDS: INSULIN ASPART 100 UNITS/ML 3 ML PEN SC SCH ×5 (00:20→23:33)
[2019-06-05] MEDS: ALBUT/IPRATROP 3MG/0.5MG NEB 3 ML VIAL NEB SCH ×6 (02:29→23:43)
[2019-06-05] MEDS: metroNIDAZOLE 500 MG/100 ML BAG IV SCH ×3 (05:19→22:04)
[2019-06-05 06:39] LABS: Estimated Average Glucose 166 mg/dl; Hemoglobin A1C 7.4 % (4.5-5.6)
[2019-06-05 06:50] LABS: Hematocrit (blood only) 23.6 % (37-47); Hemoglobin 6.9 g/dL (12.0-16.0); Mean Corpuscular Hgb Conc 29.2 g/dL (32-36); Mean Corpuscular Volume 99.2 fL (80-100); Mean Platelet Volume 10.2 fL (7.4-10.4); Platelet Count 158 K/uL (130-400); RDW Coefficient of Variation 16.2 % (11.5-14.5); RDW Standard Deviation 57.7 fL (36.4-46.3); Red Blood Count 2.38 M/uL (4.2-5.4); White Blood Count 6.74 K/uL (4.8-10.8)
[2019-06-05 07:24] LABS: Basophilic Stippling 1+; Immature Granulocytes # (auto) 0.03 K/uL (0.00-0.02); Immature Granulocytes % (auto) 0.4 %; Lymphocytes # (auto) 0.41 K/uL (1.2-3.4); Lymphocytes % (auto) 6.1 %; Monocytes # (auto) 0.31 K/uL (0.11-0.59); Monocytes % (auto) 4.6 %; Neutrophils # (auto) 5.99 K/uL (1.4-6.5); Neutrophils % (auto) 88.9 %; Reticulocyte % 3.6 % (0.5-2.0); Reticulocytes # 0.09 10^6/uL (0.02-0.10)
[2019-06-05 07:28] LABS: Albumin Globulin Ratio 0.6 (0.9-2); Albumin Level 2.9 gm/dl (3.4-5.0); BUN Creatinine Ratio 29.9 (10-20); Bilirubin,Total 0.3 mg/dl (0.2-1); Calcium 9.2 mg/dl (8.5-10.1); Creatinine Clr Calc Pharmacy 55.6 ml/min; Est GFR (African American) 77.7; Ferritin 123.2 ng/ml (8-388); Globulin 4.6 gm/dl (2.5-4.0); Potassium 4.4 mmol/L (3.5-5.1); Total Protein 7.5 gm/dl (6.4-8.2)
--- NOTE | 2019-06-05 08:12 | Neurology Consultation ---
Date of Consultation June 05, 2019 Assessment & Plan (1) Schizoaffective disorder: (2) Dementia: (3) Diabetes mellitus type 2 in obese: (4) Altered mental status: (5) Acute and chronic respiratory failure: (6) Acute exacerbation of CHF (congestive heart failure): (7) Hyperlipidemia: (8) Hypertension: (9) Bilateral chronic intracranial subdural hematoma: Ellen Iniguez is a 73 yo woman w/ PMH of schizoaffective disorder, h/o breast cancer, HTN, HLD, GERD, DM, unspecified dementia, COPD on 2L NC, CHF and chronic pain who p/t [facility] after onset of hypoxia and AMS. # AMS: most likely 2/2 to her underlying hypoxia from acute on chronic respiratory failure as mental status improved with BiPAP. She doesn't have any signs of infection on UA/CXR, blood cultures are pending. Would also rule out any diabetic foot ulcers or pressure sores, as this could also be causing her AMS. She is on duloxetine and abilify at home for her underlying mental health disorder (schizoaffective disorder), neither at significantly high doses that should be affecting her mental status (has also been on these for some time so not a new medication). She appears to be significantly improved over her presentation yesterday. - continue to manage respiratory failure as already doing per primary team # Chronic bilateral subdural hematomas: noted on CTH and MRI brain. There are no signs of acute infarct or midline shift on imaging necessitating immediate transfer for neurosurgical evaluation. Given compounding co-morbidities, would allow her current respiratory failure to improve and better determine what her baseline is from brother before deciding if she needs to have surgical decompression. Does not currently have any neurological symptoms that would require urgent neurosurgical consultation or decompression at this time - will obtain further history from brother about her baseline -Okay to continue aspirin 81 mg daily -Would recommend repeating CT head without contrast in 1 month to assess for stability or sooner if any new neurological symptoms -She should follow-up with neurosurgery as an outpatient to discuss future decompression in a non-urgent manner -Please obtain records from outside hospitalization including any CT or MRI scans to determine if there has been enlargement of her bilateral subdurals in the last month as this could electronic data interchange specialist Thank you for this interesting consult. Please call or text with any questions. History of Present Illness Attending Physician: Marv Shaw MD History of Present Illness Ellen Iniguez is a 73 yo woman w/ PMH of schizoaffective disorder, h/o breast cancer, HTN, HLD, GERD, DM, unspecified dementia, COPD on 2L NC, CHF and chronic pain who p/t [facility] after onset of hypoxia and AMS. She p/t [facility] ED after EMS found her hypoxic, cold, diaphoretic, refusing home insulin and poor PO intake. She was placed on a non-rebreather and given a duoneb/IV solumedrol prior to ED presentation. In the ED, patient afebrile, HR 95, RR 30 with accessory muscle usage, BP 199/110, satting 100% on 15L non- rebreather. She was placed on BiPAP for respiratory distress. She also received IV lasix for volume overload/CHF exacerbation. Labs notable for WBC 19.47, Hb 8.0, Plts 222, Na 141, K 4.2, CO2 43, BUN 18, Cr 0.82, glucose 207, INR 1.0, Ca/Mg WNL, LFTs WNL, troponin negative, TSH WNL, BNP 2550, HCV negative, ABG-> pH 7.14, pCO2 126, pO2 88, O2 sat 91.4%; UA + for trace glucose, 1+ protein, no bacteria/leuk esterase/nitrites. CXR showed cardiomegaly, no pneumonia, and volume overload vs severe inflammatory airway disease. CTA chest showed no evidence of PE. EKG showed NSR w/ [id number] and frequent PVCs. Independent review of CT head w/o shows bilateral chronic SDH (right ~ 14mm in thickness, left ~10mm in thickness) without any noticeable midline shift; there was also generalized atrophy, mild SVID and a right frontal meningioma. Independ ent review of MRI brain brain shows no acute infarct, chronic bilateral SDH as noted on the CTH, mild SVID, and right frontal meningioma better appreciated on the CTH given lack of contrast. Neurology is consulted for the bilateral chronic SDH. On examination today, patient reports that she is not doing well today. She feels SOB and has pain in her LLE that is chronic in nature but bothersome. She also reports that she remembers having a poor appetite and not taking her insulin prior to coming to the hospital, but does not remember coming in the ambulance or much of yesterday. She reports having dizziness but denies any new numbness, tingling, weakness or headache at this time. She reports having many tests performed at her last hospitalization but does not recall being told that she has any head bleed during that hospitalization. Attempted to call brother Oralia (POA) to obtain baseline, however, he was unavailable. Allergies Allergy/AdvReac Type Severity Reaction Status Date / Time prednisone Allergy Rash Unverified 06/04/19 10:41 Sulfa (Sulfonamide Allergy Unknown Unverified 06/04/19 10:41 Antibiotics) Home Medications Home Medications Medication Instructions Recorded Confirmed Type acetaminophen 350 mg PO Q4H PRN 06/04/19 06/04/19 History albuterol sulfate [Ventolin HFA] 2 puff INHALATION Q4H PRN 06/04/19 06/04/19 History amiodarone 200 mg PO BID 06/04/19 06/04/19 History aripiprazole 5 mg PO DAILY 06/04/19 06/04/19 History aspirin [Aspirin Low Dose] 81 mg PO DAILY 06/04/19 06/04/19 History docusate sodium [Stool Softener] 100 mg PO DAILY PRN 06/04/19 06/04/19 History duloxetine 30 mg PO BID 06/04/19 06/04/19 History furosemide 20 mg PO DAILY 06/04/19 06/04/19 History insulin aspart U-100 [Novolog 0 unit SUBCUT QID 06/04/19 06/04/19 History Flexpen U-100 Insulin] insulin glargine [Lantus Solostar 15 unit SUBCUT DAILY 06/04/19 06/04/19 History U-100 Insulin] lisinopril 5 mg PO DAILY 06/04/19 06/04/19 History loperamide 2 mg PO DAILY 06/04/19 06/04/19 History meclizine 25 mg PO TID PRN 06/04/19 06/04/19 History metoprolol succinate 25 mg PO DAILY 06/04/19 06/04/19 History multivitamin [Daily-Supriya] 1 tab PO DAILY 06/04/19 06/04/19 History pantoprazole 40 mg PO BID 06/04/19 06/04/19 History starch (thickening) [Thick-It] 1 ea PO TID 06/04/19 06/04/19 History tiotropium-olodaterol [Stiolto 2 puff INHALATION DAILY 06/04/19 06/04/19 History Respimat] Patient History Medical History CHF (congestive heart failure) COPD (chronic obstructive pulmonary disease) Schizoaffective disorder Family History Other Family history non-contributory Social History Preferred Language: Venezuelan Communication Ability: Effective Press Writer Required: No marital status: Unknown Current Living Situation: Personal Care Facility Feels Safe at Home: Yes Smoking Status: Former smoker Second Hand Exposure: No ; Hx Alcohol Use: No Hx Substance Use: No Review of Systems Review of Systems: 14 point review of systems completed and negative except as in HPI. Physical Exam Physical Exam: General Exam: GEN: NAD, lying in bed with BiPAP on. HEENT: No conjunctival injection, no rhinorrhea. CV: RRR, no peripheral edema PULM: Comfortable appearing on BiPAP. Neuro Exam: MS: Awake and Alert. Oriented to person, being in a hospital, thought it was April and wasn't sure about date/year but did think it was Friday. Speech fluent and appropriate without dysarthria or paraphasic errors. Language intact including naming, comprehension, repetition. Cognition and memory grossly intact. Attention intact. No neglect. CN: Visual amor full in left eye, diminished vision in right eye 2/2 cataract. No extinction to double simultaneous stimuli. No optic disc edema observed on fundoscopic exam. PERRLA OU. EOMI without nystagmus. Facial sensation intact to LT. Facial muscles full and symmetric. Hearing intact to conversation. Uvula midline with symmetric palatal elevation. Shoulder shrug normal. Tongue midline. MOTOR: Normal bulk and tone. No pronator drift. BUE strength 5/5 at deltoids, biceps, triceps, wrist flexors and extensors, and hand grasp bilaterally. BLE strength 5-/5 at iliopsoas, 5/5 hamstrings, 5/5 quadriceps, 5-/5 tibialis anterior (decreased 2/2 pain), and 5/5 gastrocnemius bilaterally. REFLEXES: 1+ at biceps, triceps, brachioradialis, trace patella and absent Achilles bilaterally. Toes mute bilaterally. SENSORY: Intact to LT without extinction to double simultaneous stimuli. Vibration and temperature intact in BUEs, decreased up to the knees in BLEs. COORDINATION: No dysmetria or ataxia on [id number] bilaterally. Normal Dash bilaterally. GAIT: Deferred given physical status Results & Data Vital Signs (Past 12 Hours) Vital Signs Temp Pulse Pulse Resp BP Pulse Ox 06/05/19 07:11 83 20 100 06/05/19 06:46 36.9 C 82 20 145/67 H 100 06/05/19 04:52 99 06/05/19 04:24 99 06/05/19 02:32 73 25 H 98 06/05/19 02:30 53 L 25 H 98 06/05/19 00:25 36.4 C L 65 20 82/46 L 100 06/05/19 00:00 71 06/04/19 23:21 61 23 98 06/04/19 23:20 61 23 98 06/04/19 22:12 67 18 95 Laboratory Results Abnormal lab results 06/04/19 06/04/19 06/04/19 Range/Units 10:00 10:00 10:00 WBC 19.47 H (4.8-10.8) K/uL RBC 2.82 L (4.2-5.4) M/uL Hgb 8.0 L (12.0-16.0) g/dL Hct 28.2 L (37-47) % MCHC 28.4 L (32-36) g/dL RDW Std Deviation 58.0 H (36.4-46.3) fL RDW Coeff of Cyd[place] 16.3 H (11.5-14.5) % MPV 11.1 H (7.4-10.4) fL Reticulocyte % (Auto) (0.5-2.0) % Immature Gran # (Auto) 0.19 H (0.00-0.02) K/uL Neut # (Auto) 14.34 H (1.4-6.5) K/uL Lymph # (Auto) (1.2-3.4) K/uL [place] # (Auto) 2.06 H (0.11-0.59) K/uL ABG pH (7.35-7.45) ABG pCO2 (35-46) mmHg ABG HCO3 (19-24) mmol/L ABG Base Excess (-9-1.8) mEq/L Chloride 96 L (98-107) mmol/L Carbon Dioxide 43 H* (21-32) mmol/L Anion Gap (3-11) BUN (7-18) mg/dl BUN/Creatinine Ratio 21.7 H (10-20) Glucose 207 H (70-99) mg/dl POC Glucose (70-99) Hemoglobin A1c (4.5-5.6) % TIBC (250-450) mcg/dl NT-Pro-B Natriuret Pep 2550 H (0-900) pg/ml Albumin 3.2 L (3.4-5.0) gm/dl Globulin 4.9 H (2.5-4.0) gm/dl Albumin/Globulin Ratio 0.7 L (0.9-2) Urine Appearance (Clear) Urine Protein (Negative) Urine Glucose (UA) (Negative) Urine Blood (Negative) U Hyaline Cast (Auto) (0-5) /lpf U Epithel Cells (Auto) (0-5) /lpf 06/04/19 06/04/19 06/04/19 Range/Units 10:00 10:20 10:32 WBC (4.8-10.8) K/uL RBC (4.2-5.4) M/uL Hgb (12.0-16.0) g/dL Hct (37-47) % MCHC (32-36) g/dL RDW Std Deviation (36.4-46.3) fL RDW Coeff of Cydney (11.5-14.5) % MPV (7.4-10.4) fL Reticulocyte % (Auto) (0.5-2.0) % Immature Gran # (Auto) (0.00-0.02) K/uL Neut # (Auto) (1.4-6.5) K/uL Lymph # (Auto) (1.2-3.4) K/uL [place] # (Auto) (0.11-0.59) K/uL ABG pH 7.14 L* (7.35-7.45) ABG pCO2 126 H (35-46) mmHg ABG HCO3 42 H (19-24) mmol/L ABG Base Excess 9.7 H (-9-1.8) mEq/L Chloride (98-107) mmol/L Carbon Dioxide (21-32) mmol/L Anion Gap (3-11) BUN (7-18) mg/dl BUN/Creatinine Ratio (10-20) Glucose (70-99) mg/dl POC Glucose (70-99) Hemoglobin A1c 7.4 H (4.5-5.6) % TIBC (250-450) mcg/dl NT-Pro-B Natriuret Pep (0-900) pg/ml Albumin (3.4-5.0) gm/dl Globulin (2.5-4.0) gm/dl Albumin/Globulin Ratio (0.9-2) Urine Appearance Turbid A (Clear) Urine Protein 1+ H (Negative) Urine Glucose (UA) Trace H (Negative) Urine Blood Trace H (Negative) U Hyaline Cast (Auto) 10-30 H (0-5) /lpf U Epithel Cells (Auto) >30 H (0-5) /lpf 06/04/19 06/04/19 06/04/19 Range/Units 14:33 15:32 16:10 WBC (4.8-10.8) K/uL RBC (4.2-5.4) M/uL Hgb (12.0-16.0) g/dL Hct (37-47) % MCHC (32-36) g/dL RDW Std Deviation (36.4-46.3) fL RDW Coeff of Cydney (11.5-14.5) % MPV (7.4-10.4) fL Reticulocyte % (Auto) (0.5-2.0) % Immature Gran # (Auto) (0.00-0.02) K/uL Neut # (Auto) (1.4-6.5) K/uL Lymph # (Auto) (1.2-3.4) K/uL [place] # (Auto) (0.11-0.59) K/uL ABG pH (7.35-7.45) ABG pCO2 (35-46) mmHg ABG HCO3 (19-24) mmol/L ABG Base Excess (-9-1.8) mEq/L Chloride (98-107) mmol/L Carbon Dioxide (21-32) mmol/L Anion Gap (3-11) BUN (7-18) mg/dl BUN/Creatinine Ratio (10-20) Glucose (70-99) mg/dl POC Glucose 262 H 262 H 255 H (70-99) Hemoglobin A1c (4.5-5.6) % TIBC (250-450) mcg/dl NT-Pro-B Natriuret Pep (0-900) pg/ml Albumin (3.4-5.0) gm/dl Globulin (2.5-4.0) gm/dl Albumin/Globulin Ratio (0.9-2) Urine Appearance (Clear) Urine Protein (Negative) Urine Glucose (UA) (Negative) Urine Blood (Negative) U Hyaline Cast (Auto) (0-5) /lpf U Epithel Cells (Auto) (0-5) /lpf 06/04/19 06/04/19 06/05/19 Range/Units 18:32 20:36 00:17 WBC (4.8-10.8) K/uL RBC (4.2-5.4) M/uL Hgb (12.0-16.0) g/dL Hct (37-47) % MCHC (32-36) g/dL RDW Std Deviation (36.4-46.3) fL RDW Coeff of Cydney (11.5-14.5) % MPV (7.4-10.4) fL Reticulocyte % (Auto) (0.5-2.0) % Immature Gran # (Auto) (0.00-0.02) K/uL Neut # (Auto) (1.4-6.5) K/uL Lymph # (Auto) (1.2-3.4) K/uL [place] # (Auto) (0.11-0.59) K/uL ABG pH (7.35-7.45) ABG pCO2 (35-46) mmHg ABG HCO3 (19-24) mmol/L ABG Base Excess (-9-1.8) mEq/L Chloride (98-107) mmol/L Carbon Dioxide (21-32) mmol/L Anion Gap (3-11) BUN (7-18) mg/dl BUN/Creatinine Ratio (10-20) Glucose (70-99) mg/dl POC Glucose 239 H 195 H 165 H (70-99) Hemoglobin A1c (4.5-5.6) % TIBC (250-450) mcg/dl NT-Pro-B Natriuret Pep (0-900) pg/ml Albumin (3.4-5.0) gm/dl Globulin (2.5-4.0) gm/dl Albumin/Globulin Ratio (0.9-2) Urine Appearance (Clear) Urine Protein (Negative) Urine Glucose (UA) (Negative) Urine Blood (Negative) U Hyaline Cast (Auto) (0-5) /lpf U Epithel Cells (Auto) (0-5) /lpf 06/05/19 06/05/19 06/05/19 Range/Units 05:59 05:59 06:05 WBC (4.8-10.8) K/uL RBC 2.38 L (4.2-5.4) M/uL Hgb 6.9 L* (12.0-16.0) g/dL Hct 23.6 L (37-47) % MCHC 29.2 L (32-36) g/dL RDW Std Deviation 57.7 H (36.4-46.3) fL RDW Coeff of Cydney 16.2 H (11.5-14.5) % MPV (7.4-10.4) fL Reticulocyte % (Auto) 3.6 H (0.5-2.0) % Immature Gran # (Auto) 0.03 H (0.00-0.02) K/uL Neut # (Auto) (1.4-6.5) K/uL Lymph # (Auto) 0.41 L (1.2-3.4) K/uL [place] # (Auto) (0.11-0.59) K/uL ABG pH (7.35-7.45) ABG pCO2 (35-46) mmHg ABG HCO3 (19-24) mmol/L ABG Base Excess (-9-1.8) mEq/L Chloride 96 L (98-107) mmol/L Carbon Dioxide 45 H* (21-32) mmol/L Anion Gap 1.0 L (3-11) BUN 26 H (7-18) mg/dl BUN/Creatinine Ratio 29.9 H (10-20) Glucose 115 H (70-99) mg/dl POC Glucose 133 H (70-99) Hemoglobin A1c (4.5-5.6) % TIBC 238 L (250-450) mcg/dl NT-Pro-B Natriuret Pep (0-900) pg/ml Albumin 2.9 L (3.4-5.0) gm/dl Globulin 4.6 H (2.5-4.0) gm/dl Albumin/Globulin Ratio 0.6 L (0.9-2) Urine Appearance (Clear) Urine Protein (Negative) Urine Glucose (UA) (Negative) Urine Blood (Negative) U Hyaline Cast (Auto) (0-5) /lpf U Epithel Cells (Auto) (0-5) /lpf 06/05/19 Range/Units 07:19 WBC (4.8-10.8) K/uL RBC (4.2-5.4) M/uL Hgb (12.0-16.0) g/dL Hct (37-47) % MCHC (32-36) g/dL RDW Std Deviation (36.4-46.3) fL RDW Coeff of Cyd[place] (11.5-14.5) % MPV (7.4-10.4) fL Reticulocyte % (Auto) (0.5-2.0) % Immature Gran # (Auto) (0.00-0.02) K/uL Neut # (Auto) (1.4-6.5) K/uL Lymph # (Auto) (1.2-3.4) K/uL [place] # (Auto) (0.11-0.59) K/uL ABG pH (7.35-7.45) ABG pCO2 (35-46) mmHg ABG HCO3 (19-24) mmol/L ABG Base Excess (-9-1.8) mEq/L Chloride (98-107) mmol/L Carbon Dioxide (21-32) mmol/L Anion Gap (3-11) BUN (7-18) mg/dl BUN/Creatinine Ratio (10-20) Glucose (70-99) mg/dl POC Glucose 124 H (70-99) Hemoglobin A1c (4.5-5.6) % TIBC (250-450) mcg/dl NT-Pro-B Natriuret Pep (0-900) pg/ml Albumin (3.4-5.0) gm/dl Globulin (2.5-4.0) gm/dl Albumin/Globulin Ratio (0.9-2) Urine Appearance (Clear) Urine Protein (Negative) Urine Glucose (UA) (Negative) Urine Blood (Negative) U Hyaline Cast (Auto) (0-5) /lpf U Epithel Cells (Auto) (0-5) /lpf PG Care Time/CCT Total # of Minutes Spent Total Time Spent with Patient: Total time spent is greater than 50% in coordination of care (as documented) at patient's floor/unit and/or counseling patient:
[2019-06-05 08:32] LABS: Folate (Folic Acid) > 24.00 ng/ml (>5.38); Vitamin B12 1420 pg/ml (211-911)
[2019-06-05 08:33] LABS: Base Excess ABG 11.2 mEq/L (-9-1.8); HCO3 ABG 42 mmol/L (19-24); Oxygen Saturation ABG 94.2 % (90-95); PCO2 ABG 114 mmHg (35-46); PO2 ABG 115 mm/Hg (80-95)
[2019-06-05] MEDS ORDERED: DiphenhydrAMINE HCL 50 MG/ML VIAL IV STA (08:33)
[2019-06-05 08:34] LABS: Allen Test Pos (Pos)
[2019-06-05 08:35] LABS: pH ABG 7.18 (7.35-7.45)
[2019-06-05] MEDS: TIOTROPIUM BROMIDE 5 PUFF/90 MCG INH INH SCH (08:50)
[2019-06-05] MEDS: SALMETEROL XINAFOATE 50MCG 28 BLISTER INH INH SCH ×2 (08:51→20:10)
[2019-06-05] MEDS ORDERED: ASPIRIN 81 MG ECTAB PO SCH (09:00)
[2019-06-05] MEDS: methylPREDNISolone 40 MG in SYRINGE 0 ML IV SCH ×2 (09:27→20:08)
[2019-06-05] MEDS: lisinopriL 5 MG TAB PO SCH (10:21)
[2019-06-05] MEDS: DULOXETINE HCL 30 MG CAP PO SCH ×2 (10:21→20:09)
[2019-06-05] MEDS: MULTIVITAMIN TAB PO SCH (10:21)
[2019-06-05] MEDS: METOPROLOL SUCC 25MG EXT REL TAB PO SCH (10:21)
[2019-06-05] MEDS: PANTOprazole 40 MG TAB PO SCH ×2 (10:21→20:09)
[2019-06-05] MEDS: FUROSEMIDE 40 MG in SYRINGE 0 ML IV SCH ×2 (10:22→18:17)
[2019-06-05] MEDS: AMIODARONE 200 MG TAB PO SCH ×2 (10:22→20:09)
--- NOTE | 2019-06-05 10:26 | Pharmacy Report ---
Pharmacy Glycemic Short Note 2 - Date of Service June 05, 2019 - Glycemic Short BSG Results (Last 24 hours): 06/04/19 06/04/19 06/04/19 10:00 14:33 15:32 Glucose 207 H POC Glucose 262 H 262 H 06/04/19 06/04/19 06/04/19 16:10 18:32 20:36 Glucose POC Glucose 255 H 239 H 195 H 06/05/19 06/05/19 06/05/19 00:17 05:59 06:05 Glucose 115 H POC Glucose 165 H 133 H 06/05/19 07:19 Glucose POC Glucose 124 H OUTPATIENT ANTIDIABETIC REGIMEN: * Lantus 15 units qAM * Novolog per SS * A1c 7.4% on 06/04/19 ASSESSMENT: 06/05 * Patient received 13 units of basal and 10 units of prandial insulin yesterday * Fasting = 115 mg/dL * Postprandial BSGs improved yesterday * Now starting Solu-medrol 40 mg q12h so insulin requirements will increase 06/04 * 73 year old female admitted with respiratory failure, possible GI bleed. Pharmacy consulted for glycemic management. Patient currently NPO. * Patient typically on Lantus/Novolog outpatient. Did confirm with nurse at [facility] that patient did not receive any insulin this morning prior to admission. * BSG around 1000 this morning 207 mg/dL - will start reduced basal dose for NPO status and bolus insulin for glycemic management. PLAN FOR INPATIENT GLYCEMIC CONTROL: * Hold outpatient oral diabetes medications * Basal insulin - increase * Lantus 15 units qAM * Additional 5 units qPM if BSGs 180 or above (will be total of wt based/stress of 2) * Bolus insulin - tighten CF/CR for steroid initiation * NovoLog per scale ACHS or Q6hrs while NPO * Goal Range: Low 110 mg/dL - High 140 mg/dL * Correction Factor: 25 mg/dL/unit * Nutritional / Prandial insulin per carb ratio of 1 unit per 8 grams CHO consumed
[2019-06-05] MEDS: DOXYCYCLINE HYCLATE 100 MG in DEXTROSE 5% 100 ML IV SCH ×2 (10:34→20:08)
[2019-06-05] MEDS: ACETAMINOPHEN 325 MG TAB PO PRN ×3 (10:34→20:17)
[2019-06-05] MEDS ORDERED: INSULIN GLARGINE SOLOSTAR 100 UNITS/ML 3 ML PEN SQ SCH ×3 (11:00→21:00)
[2019-06-05] MEDS: ARIPiprazole 5 MG TAB PO SCH (11:29)
[2019-06-05] MEDS ORDERED: SODIUM CHLORIDE 0.9% 250 ML IV PRN (12:41)
[2019-06-05] MEDS ORDERED: DiphenhydrAMINE HCL 50 MG/ML VIAL IV PRN (12:42)
[2019-06-05] MEDS: cefTRIAXone SODIUM 2,000 MG/70 ML BAG IV SCH (12:52)
--- NOTE | 2019-06-05 12:53 | Hospitalist Progress Note ---
Date of Service June 05, 2019 Assessment & Plan (1) Acute and chronic respiratory failure: Continue admission at PCU on telemetry Vital signs every 4 hours CTA chest -no pulmonary edema Continue BiPAP setting Patient is at home on supplemental oxygen approximately 3 L 24/7 Duo nebs every 4 scheduled and as needed as per RT Started ceftriaxone 2 g IV and doxycycline 100 mg IV IV twice daily in the ER Procalcitonin elevated to 0.14 Given Lasix 60, 40 mg IV while patient in the ER. Patient did not respond brisk to the first dose. DVT prophylaxis Lovenox 40 mg subcu daily CODE STATUS DNR/DNI (2) Acute exacerbation of CHF (congestive heart failure): Strict in and out Daily weight TTE shows left ventricular systolic function is normal. No regional wall motion abnormality noted. There is moderate concentric left ventricular hypertrophy. Ejection fraction is 55 to 60%. Probably mild aortic stenosis. Restrict p.o. fluids to 1200 mils per day N.p.o. for now until patient assessed by speech therapist for dysphagia In the past patient was thickening her fluids and food If able to swallow low-sodium diet Monitor electrolytes and replenish Potassium 40 M EQ daily p.o.-start when patient cleared by speech Lasix 40 mg IV twice daily Continue lisinopril 5 mg p.o. daily, Continue metoprolol 25 mg p.o. daily starting tomorrow Aspirin 81 mg p.o. daily (3) Anemia: Acute on chronic anemia Pending iron studies Pending serial occult blood Started Rupal sequel Continue monitoring H&H Transfuse if hemoglobin less than 8 (4) Altered mental status: Appreciate neurology recommendations: Altered mental status is most likely to underlining hypoxia in the setting of acute on chronic respiratory failure and that improved with BiPAP. Chronic bilateral subdural hematomas: noted on CT of the head and MRI brain. There are no signs of acute infarct or midline shift on imaging necessitating immediate transfer for neurosurgical evaluation. Given compounding co- morbidities, would allow her current respiratory failure to improve and better determine what her baseline is from brother before deciding if she needs to have surgical decompression. Does not currently have any neurological symptoms that would require urgent neurosurgical consultation or decompression at this time Continue aspirin [address] head without contrast in 1 month to assess for stability or sooner if any new neurological symptoms Follow-up with neurosurgery as an outpatient to discuss future decompression in a non-urgent manner We will obtain old records from [facility] especially CT and MRIs scans of the brain. (5) Diabetes mellitus type 2 in obese: Continue two thirds of basal home dose insulin while patient in the hospital and at risk of hypoglycemia Continue sliding scale insulin Accu-Cheks before meals and at bedtime Glycemic control per pharmacy (6) Dementia: Patient was lethargic on exam It was hard to determine the degree of patient dementia and type of dementia. Continue aripiprazole 5 mg p.o. daily (7) COPD (chronic obstructive pulmonary disease): Continue management as already discussed respiratory failure. Continue home meds tiotropium olodaterol 2 puffs daily, Ventolin HFA 2 puffs every 4 hours as needed. (8) GERD (gastroesophageal reflux disease): Continue pantoprazole 40 mg p.o. twice daily (9) Hypertension: Continue home medication: Lisinopril 5 mg p.o. daily, metoprolol succinate 25 mg p.o. daily starting tomorrow Furosemide 40 mg p.o. IV twice daily Amiodarone 200 mg p.o. twice daily (10) Hyperlipidemia: Lipid panel triglycerides 74, cholesterol 193 borderline LDL 111, VLDL 15, HDL 67. Will start atorvastatin 40 mg p.o. nightly. (11) Dysphagia: Patient was thickening fluids at home Swallowing evaluation pending N.p.o. for now since lethargic (12) Chronic pain: Continue duloxetine 30 mg p.o. twice daily (13) Paroxysmal atrial fibrillation: Patient is in sinus rhythm currently Continue amiodarone 200 mg p.o. twice daily Patient is not on anticoagulation at home for paroxysmal A. fib's Probably due to risk of falling. (14) HX: breast cancer: Patient's left breast is removed for breast cancer several years ago. Appears to be stable at this time (15) Mild mitral regurgitation: TTE as discussed above Ongoing issue (16) Schizoaffective disorder: Patient is stable, but lethargic today She does not take any medicine for schizophrenia affective disorder. (17) Anemia: H&H dropped from 01/12 8.2-6.9/23.6 Iron study TIBC 238, ferritin 123.2, vitamin B12 1420, folate over 24. Anemia of chronic disease with decreased iron binding capacity. We will try to increase iron binding capacity adding ferrous sequel. Patient signed a consent to receive blood transfusion. We will give 1 PRBC at the time because of acute exacerbation of congestive hear t failure and to avoid volume overload. Posttransfusion CBC Present on Admission?: Yes Subjective Patient seen and examined at the bedside. Resting comfortably in the bed , and her brother and [id number] are next to her bedside. We discussed all new information received from the CT of the head, MRI of the brain, blood work. Per family patient he is in personal care. She just moved in and it is located in [place] so she is closer to her brother and [id number]. Patient has schizophrenia affective disorder and on occasion is very stubborn and paranoid and it is difficult to take care of her if she is refusing the care. Since March patient has been hospitalized 3 times. She was is estranged from her family and did not allow anybody to come and see her. Family is not aware of patient falls but appears that patient had multiple falls including but not limited to right ankle injury, chronic subdural hematoma bilateral, and her other injuries. Patient has only limited insight, with difficulties. To understand her current situation. Last time when she was in [facility] patient supposed to receive blood for acute anemia but she refused. Today patient is stable on BiPAP. Her hemoglobin is 6.9 and down from 8 which was yesterday. Patient reports no bleeding, bruising, melena, hematuria, hematemesis. Family is agreeable to transfuse 1 unit of blood possibly 2 later on since patient also has acute exacerbation of congestive heart failure and needs to be watched for volume overload. Review of Systems Review of Systems: All systems reviewed & are unremarkable except as noted in HPI & below Physical Exam Constitutional: WD/WN, vitals as above well developed, + ill appearing and + obese Eyes: PERRL, conjunctivae normal, anicteric sclerae ENMT: external ear and nose normal, oropharynx normal Neck: trachea midline, no thyromegaly Respiratory: normal respiratory effort and + hyperresonance to percussion; no labored breathing and does not use accessory muscles Auscultation: + crackles (Improving), + wheezes (Improving) and + bronchovesicular breath sounds Cardiovascular: Heart Sounds: normal S1, normal S2, + abnormal opening sounds and + murmur Palpation: + palpable S3 Vessels: + JVD and dorsalis pedis pulses present Extremities: + pedal edema (Improving) Gastrointestinal (Abdomen): normal bowel sounds, soft, nontender, no hepatosplenomegaly Musculoskeletal: no cyanosis or clubbing, extremities motor strength 5/5 Skin: no rashes, warm and dry Neurologic: PERRL, EOMI, accommodation nl, no face palsy, no dysarthria Psychiatric: A+Ox3, euthymic affect Lymphatic: no cervical or axillary lymphadenopathy Results & Data Vital Signs (Past 12 Hours) Vital Signs Temp Pulse Pulse Resp BP Pulse Ox 06/05/19 11:16 36.4 C L 81 16 121/62 100 06/05/19 11:05 100 H 81 30 H 100 06/05/19 08:59 91 H 27 H 94 06/05/19 07:11 83 20 100 06/05/19 06:46 36.9 C 82 20 145/67 H 100 06/05/19 04:52 99 06/05/19 04:24 99 06/05/19 02:32 73 25 H 98 06/05/19 02:30 53 L 25 H 98 PG Care Time/CCT Total # of Minutes Spent Total Time Spent with Patient: Total time spent is greater than 50% in coordination of care (as documented) at patient's floor/unit and/or counseling patient: (1) Anemia Anemia type: unspecified type Qualified Code(s): D64.9 - Anemia, unspecified
--- NOTE | 2019-06-05 14:25 | XRay Report ---
RIGHT ANKLE 3 VIEWS HISTORY: pain in the right ankle COMPARISON: None. FINDINGS: There is no fracture or dislocation. Soft tissues are unremarkable. No radiopaque foreign b odies. The bones are osteopenic. IMPRESSION: No fractures. ACT 112: Negative or not required by law. Electronically signed by: Hector Diaz M.D. 06/05/2019 2:24 PM
[2019-06-05 19:53] LABS: Hematocrit (blood only) 26.1 % (37-47); Hemoglobin 7.7 g/dL (12.0-16.0)
[2019-06-06] MEDS: ALBUT/IPRATROP 3MG/0.5MG NEB 3 ML VIAL NEB SCH ×6 (03:35→23:30)
[2019-06-06] MEDS: ACETAMINOPHEN 325 MG TAB PO PRN ×3 (04:09→21:56)
[2019-06-06 04:54] LABS: Base Excess ABG 15.5 mEq/L (-9-1.8); HCO3 ABG 43 mmol/L (19-24); Oxygen Saturation ABG 95.3 % (90-95); PCO2 ABG 73 mmHg (35-46); PO2 ABG 85 mm/Hg (80-95); pH ABG 7.39 (7.35-7.45)
[2019-06-06 04:56] LABS: Allen Test POS (Pos)
[2019-06-06] MEDS: metroNIDAZOLE 500 MG/100 ML BAG IV SCH ×3 (05:43→21:33)
[2019-06-06] MEDS: INSULIN ASPART 100 UNITS/ML 3 ML PEN SC SCH ×4 (05:45→21:38)
[2019-06-06 06:10] LABS: Hematocrit (blood only) 26.2 % (37-47); Hemoglobin 7.8 g/dL (12.0-16.0); Immature Granulocytes # (auto) 0.03 K/uL (0.00-0.02); Immature Granulocytes % (auto) 0.7 %; Lymphocytes # (auto) 0.34 K/uL (1.2-3.4); Lymphocytes % (auto) 8.2 %; Mean Corpuscular Hemoglobin 28.3 pg (25-34); Mean Corpuscular Hgb Conc 29.8 g/dL (32-36); Mean Corpuscular Volume 94.9 fL (80-100); Mean Platelet Volume 9.8 fL (7.4-10.4); Monocytes # (auto) 0.16 K/uL (0.11-0.59); Monocytes % (auto) 3.8 %; Neutrophils # (auto) 3.63 K/uL (1.4-6.5); Neutrophils % (auto) 87.3 %; Platelet Count 143 K/uL (130-400); RDW Coefficient of Variation 16.4 % (11.5-14.5); RDW Standard Deviation 56.3 fL (36.4-46.3); Red Blood Count 2.76 M/uL (4.2-5.4); White Blood Count 4.16 K/uL (4.8-10.8)
[2019-06-06 06:33] LABS: Stomatocytes 2+
[2019-06-06 06:44] LABS: Albumin Level 2.8 gm/dl (3.4-5.0); BUN Creatinine Ratio 36.4 (10-20); Bilirubin,Total 0.4 mg/dl (0.2-1); Calcium 9.2 mg/dl (8.5-10.1); Creatinine Clr Calc Pharmacy 51.2 ml/min; Est GFR (African American) 71.6; Est GFR (Non-African American) 61.8; Globulin 4.3 gm/dl (2.5-4.0); Total Protein 7.1 gm/dl (6.4-8.2)
[2019-06-06 07:36] LABS: Albumin Globulin Ratio 0.6 (0.9-2)
[2019-06-06] MEDS ORDERED: INSULIN GLARGINE SOLOSTAR 100 UNITS/ML 3 ML PEN SQ SCH (09:00)
[2019-06-06] MEDS: DOXYCYCLINE HYCLATE 100 MG in DEXTROSE 5% 100 ML IV SCH ×2 (09:15→21:31)
[2019-06-06] MEDS: FUROSEMIDE 40 MG in SYRINGE 0 ML IV SCH ×2 (10:11→16:56)
[2019-06-06] MEDS: methylPREDNISolone 40 MG in SYRINGE 0 ML IV SCH ×2 (10:11→21:32)
[2019-06-06] MEDS: DULOXETINE HCL 30 MG CAP PO SCH ×2 (10:20→21:32)
[2019-06-06] MEDS: METOPROLOL SUCC 25MG EXT REL TAB PO SCH (10:20)
[2019-06-06] MEDS: PANTOprazole 40 MG TAB PO SCH ×2 (10:21→21:32)
[2019-06-06] MEDS: ARIPiprazole 5 MG TAB PO SCH (10:21)
[2019-06-06] MEDS: AMIODARONE 200 MG TAB PO SCH ×2 (10:21→21:31)
[2019-06-06] MEDS: lisinopriL 5 MG TAB PO SCH (10:22)
[2019-06-06] MEDS: TIOTROPIUM BROMIDE 5 PUFF/90 MCG INH INH SCH (10:30)
[2019-06-06] MEDS: SALMETEROL XINAFOATE 50MCG 28 BLISTER INH INH SCH ×2 (10:31→21:31)
[2019-06-06] MEDS: MULTIVITAMIN TAB PO SCH (10:31)
--- NOTE | 2019-06-06 10:34 | Pharmacy Report ---
Pharmacy Glycemic Short Note 2 - Date of Service June 06, 2019 - Glycemic Short BSG Results (Last 24 hours): 06/05/19 06/05/19 06/05/19 12:08 18:13 20:19 Glucose POC Glucose 161 H 159 H 142 H 06/05/19 06/06/19 06/06/19 23:30 05:42 05:44 Glucose 160 H POC Glucose 180 H 179 H OUTPATIENT ANTIDIABETIC REGIMEN: * Lantus 15 units qAM * Novolog per SS * A1c 7.4% on 06/04/19 ASSESSMENT: 06/06 * Patient received 15 units of basal and 4 units of bolus insulin yesterday * She remains NPO. Continues on Solu-medrol 40 mg IV q12h. * BSGs have ranged from 142-180 mg/dL in the past 24 hours * She did not receive additional basal last night since her BSG was below 180 at HS; however, she could have used this dose as BSGs have trended upwards. Will increase dose this AM and then split BID from tomorrow. * Plans to start PN tomorrow since patient has been NPO 06/05 * Patient received 13 units of basal and 10 units of bolus insulin yesterday * Fasting = 115 mg/dL * Postprandial BSGs improved yesterday * Now starting Solu-medrol 40 mg q12h so insulin requirements will increase 06/04 * 73 year old female admitted with respiratory failure, possible GI bleed. Pharmacy consulted for glycemic management. Patient currently NPO. * Patient typically on Lantus/Novolog outpatient. Did confirm with nurse at [facility] that patient did not receive any insulin this morning prior to admission. * BSG around 1000 this morning 207 mg/dL - will start reduced basal dose for NPO status and bolus insulin for glycemic management. PLAN FOR INPATIENT GLYCEMIC CONTROL: * Basal insulin - increase * Lantus 20 units qAM, then * Lantus 10 units BID from 06/07 * Bolus insulin - no change * NovoLog per scale ACHS or Q6hrs while NPO * Goal Range: Low 110 mg/dL - High 140 mg/dL * Correction Factor: 25 mg/dL/unit * Nutritional / Prandial insulin per carb ratio of 1 unit per 8 grams CHO consumed Discharge Recommendations: * A1c = 7.4% on 06/04/19 * Goal A1c < 8% based on age/comorbidities * Continue outpatient regimen on discharge
[2019-06-06] MEDS: cefTRIAXone SODIUM 2,000 MG/70 ML BAG IV SCH (11:55)
[2019-06-06] MEDS: FERROUS FUMARATE/ASCORBIC ACID 65 MG CAPCR PO SCH (14:05)
[2019-06-06] MEDS ORDERED: SODIUM CHLORIDE 0.9% 250 ML IV PRN (14:42)
--- NOTE | 2019-06-06 14:55 | Hospitalist Progress Note ---
Date of Service June 06, 2019 Assessment & Plan (1) Acute and chronic respiratory failure: Continue admission at PCU on telemetry Vital signs every 4 hours CTA chest -no pulmonary edema Continue BiPAP setting. Without BiPAP for 5 minutes patient cannot keep her oxygenation above 87% Plan to start TPN, patient brother who is her POA is agreeable with it and consented a PICC line or midline. Dietary consult for failure to thrive and TPN. TPN administration will be managed by pharmacy and will start tomorrow after we receive proper labs such as phosphorus and CMP. Pulmonary consult Will transfuse another unit of blood. H&H stable at 7.8/26.2 after first unit of blood which was given yesterday Plan to give another unit of blood since H&H is still below 8. Patient is at home on supplemental oxygen approximately 3 L 16/12 Duo nebs every 4 scheduled and as needed as per RT Started ceftriaxone 2 g IV and doxycycline 100 mg IV IV twice daily in the ER Procalcitonin elevated to 0.14 Given Lasix 60, 40 mg IV while patient in the ER. Patient did not respond brisk to the first dose. DVT prophylaxis Lovenox 40 mg subcu daily CODE STATUS DNR/DNI (2) Acute exacerbation of CHF (congestive heart failure): Strict in and out Daily weight TTE shows left ventricular systolic function is normal. No regional wall motion abnormality noted. There is moderate concentric left ventricular hypertrophy. Ejection fraction is 55 to 60%. Probably mild aortic stenosis. Restrict p.o. fluids to 1200 mils per day N.p.o. for now until patient assessed by speech therapist for dysphagia In the past patient was thickening her fluids and food If able to swallow low-sodium diet Monitor electrolytes and replenish Potassium 40 M EQ daily p.o.-start when patient cleared by speech Lasix 40 mg IV twice daily Continue lisinopril 5 mg p.o. daily, Continue metoprolol 25 mg p.o. daily starting tomorrow Aspirin 81 mg p.o. daily (3) Anemia: Acute on chronic anemia Pending iron studies Pending serial occult blood Started Rupal sequel Continue monitoring H&H Transfuse if hemoglobin less than 8 (4) Altered mental status: Appreciate neurology recommendations: Altered mental status is most likely to underlining hypoxia in the setting of acute on chronic respiratory failure and that improved with BiPAP. Chronic bilateral subdural hematomas: noted on CT of the head and MRI brain. There are no signs of acute infarct or midline shift on imaging necessitating immediate transfer for neurosurgical evaluation. Given compounding co- morbidities, would allow her current respiratory failure to improve and better determine what her baseline is from brother before deciding if she needs to have surgical decompression. Does not currently have any neurological symptoms that would require urgent neurosurgical consultation or decompression at this time Continue aspirin [address] head without contrast in 1 month to assess for stability or sooner if any new neurological symptoms Follow-up with neurosurgery as an outpatient to discuss future decompression in a non-urgent manner We will obtain old records from [facility] especially CT and MRIs scans of the brain. (5) Diabetes mellitus type 2 in obese: Continue two thirds of basal home dose insulin while patient in the hospital and at risk of hypoglycemia Continue sliding scale insulin Accu-Cheks before meals and at bedtime Glycemic control per pharmacy (6) Dementia: Patient was lethargic on exam It was hard to determine the degree of patient dementia and type of dementia. Continue aripiprazole 5 mg p.o. daily (7) COPD (chronic obstructive pulmonary disease): Continue management as already discussed respiratory failure. Continue home meds tiotropium olodaterol 2 puffs daily, Ventolin HFA 2 puffs every 4 hours as needed. (8) GERD (gastroesophageal reflux disease): Continue pantoprazole 40 mg p.o. twice daily (9) Hypertension: Continue home medication: Lisinopril 5 mg p.o. daily, metoprolol succinate 25 mg p.o. daily starting tomorrow Furosemide 40 mg p.o. IV twice daily Amiodarone 200 mg p.o. twice daily (10) Hyperlipidemia: Lipid panel triglycerides 74, cholesterol 193 borderline LDL 111, VLDL 15, HDL 67. Will start atorvastatin 40 mg p.o. nightly. (11) Dysphagia: Patient was thickening fluids at home Swallowing evaluation pending N.p.o. for now since lethargic (12) Chronic pain: Continue duloxetine 30 mg p.o. twice daily (13) Paroxysmal atrial fibrillation: Patient is in sinus rhythm currently Continue amiodarone 200 mg p.o. twice daily Patient is not on anticoagulation at home for paroxysmal A. fib's Probably due to risk of falling. (14) HX: breast cancer: Patient's left breast is removed for breast cancer several years ago. Appears to be stable at this time (15) Mild mitral regurgitation: TTE as discussed above Ongoing issue (16) Schizoaffective disorder: Patient is stable, but lethargic today She does not take any medicine for schizophrenia affective disorder. Subjective Patient seen and examined at the bedside. Resting comfortably in the bed is next to her bedside. Patient is still BiPAP dependent. Per nursing report she is only able to say off of BiPAP for couple of minutes and as soon as he stays longer than 6 or 7 minutes of her O2 sats are dropping below 88%. This morning when she was off of BiPAP for couple of minutes her her O2 sats dropped to 85%. In the meantime patient has congestive heart failure and she is in acute exacerbation so so giving fluids IV would not be helpful in treating her CHF exacerbation but in the meantime this is the third day that patient did not eat anything due to inability to hold her blood pressure and this is becoming concerning. Per family patient he is in personal care. She just moved in and it is located in [place] so she is closer to her brother and [id number]. Patient has schizoaffective disorder and on occasion is very stubborn and paranoid and it is difficult to take care of her if she is refusing the care. Since March patient has been hospitalized 3 times. She was is estranged from her family and did not allow anybody to come and see her. Family is not aware of patient falls but appears that patient had multiple falls including but not limited to right ankle injury, chronic subdural hematoma bilateral, and her other injuries. Patient has only limited insight, with difficulties to percive her current situation. Patient reports no bleeding, bruising, melena, hematuria, hematemesis. Family is agreeable to transfuse 1-2 unit of blood.H/H improved to 7.8/26.2. Patient tolerated it well. We will give another unit of blood today and appears to be safe since patient acute CHF exacerbation is clinically improving. Carefully observe for volume overload. Review of Systems Review of Systems: All systems reviewed & are unremarkable except as noted in HPI & below Physical Exam Constitutional: WD/WN, vitals as above well developed and + obese; not ill appearing Eyes: PERRL, conjunctivae normal, anicteric sclerae ENMT: external ear and nose normal, oropharynx normal Neck: trachea midline, no thyromegaly Respiratory: normal respiratory effort and + hyperresonance to percussion; no labored breathing and does not use accessory muscles Auscultation: + crackles (Improving), + wheezes (Improving) and + bronchovesicular breath sounds Continues to need BiPAP. Drops below 85% without BiPAP for 5 minutes. Cardiovascular: Heart Sounds: normal S1, normal S2, + abnormal opening sounds and + murmur Palpation: + palpable S3 Vessels: + JVD and dorsalis pedis pulses present Extremities: + pedal edema (Improving) Gastrointestinal (Abdomen): normal bowel sounds, soft, nontender, no hepatosplenomegaly Musculoskeletal: no cyanosis or clubbing, extremities motor strength 5/5 Skin: no rashes, warm and dry Neurologic: PERRL, EOMI, accommodation nl, no face palsy, no dysarthria Psychiatric: A+Ox3, euthymic affect Lymphatic: no cervical or axillary lymphadenopathy Results & Data Vital Signs (Past 12 Hours) Vital Signs Temp Pulse Pulse Resp BP Pulse Ox 06/06/19 11:58 36.5 C 85 20 165/72 H 96 06/06/19 11:10 79 79 28 H 95 06/06/19 07:11 80 27 H 96 06/06/19 07:10 80 27 H 96 06/06/19 03:35 80 80 24 99 06/06/19 03:28 36.5 C 79 20 158/73 H 98 PG Care Time/CCT Total # of Minutes Spent Total Time Spent with Patient: Total time spent is greater than 50% in coordination of care (as documented) at patient's floor/unit and/or counseling patient: (1) Anemia Anemia type: unspecified type Qualified Code(s): D64.9 - Anemia, unspecified
[2019-06-06] MEDS ORDERED: TPN/PPN CONSULT PHARMACY PRN (15:07)
[2019-06-06 15:23] LABS: Phosphorus 3.3 mg/dl (2.5-4.9)
[2019-06-06 17:22] LABS: Base Excess ABG 17.9 mEq/L (-9-1.8); HCO3 ABG 45 mmol/L (19-24); Oxygen Saturation ABG 91.6 % (90-95); PCO2 ABG 70 mmHg (35-46); PO2 ABG 65 mm/Hg (80-95); pH ABG 7.43 (7.35-7.45)
[2019-06-06 17:23] LABS: Allen Test Pos (Pos)
[2019-06-06 21:00] LABS: Base Excess VBG 19.6 mEq/L; Oxygen Saturation VBG 85.2 %; pH VBG 7.44 (7.36-7.41)
[2019-06-06] MEDS ORDERED: Nursing to Pharmacy Communication ONE (21:33)
--- NOTE | 2019-06-06 22:20 | Electrocardiogram Report ---
Test Reason : Blood Pressure : / mmHG Vent. Rate : 083 BPM Atrial Rate : 083 BPM P-R Int : 196 ms QRS Dur : 106 ms QT Int : 418 ms P-R-T Axes : 064 034 074 degrees QTc Int : 491 ms Normal sinus rhythm Possible Left atrial enlargement Prolonged QT Abnormal ECG When compared with ECG of 04-JUN-2019 09:59, Premature ventricular complexes are no longer Present Confirmed by Aidan Bauman [id number] on 06/06/2019 10:20:27 PM Referred By: [facility] Confirmed By:Aidan Bauman
[2019-06-07] MEDS: ALBUT/IPRATROP 3MG/0.5MG NEB 3 ML VIAL NEB SCH ×6 (03:07→22:59)
[2019-06-07 06:18] LABS: Hematocrit (blood only) 31.3 % (37-47); Hemoglobin 9.5 g/dL (12.0-16.0); Mean Corpuscular Hemoglobin 28.2 pg (25-34); Mean Corpuscular Hgb Conc 30.4 g/dL (32-36); Mean Corpuscular Volume 92.9 fL (80-100); Mean Platelet Volume 10.5 fL (7.4-10.4); Nucleated RBC # (auto) 0.03 K/uL (0-0); Platelet Count 170 K/uL (130-400); RDW Coefficient of Variation 16.4 % (11.5-14.5); RDW Standard Deviation 55.4 fL (36.4-46.3); Red Blood Count 3.37 M/uL (4.2-5.4); White Blood Count 3.29 K/uL (4.8-10.8)
[2019-06-07] MEDS: metroNIDAZOLE 500 MG/100 ML BAG IV SCH ×3 (06:32→21:05)
[2019-06-07 06:40] LABS: Basophilic Stippling Occasional; Basophils # (auto) 0.01 K/uL (0-0.2); Basophils % (auto) 0.3 %; Immature Granulocytes # (auto) 0.18 K/uL (0.00-0.02); Immature Granulocytes % (auto) 5.5 %; Lymphocytes % (auto) 9.1 %; Monocytes # (auto) 0.12 K/uL (0.11-0.59); Monocytes % (auto) 3.6 %; Neutrophils # (auto) 2.68 K/uL (1.4-6.5); Neutrophils % (auto) 81.5 %; Stomatocytes 1+
[2019-06-07 07:11] LABS: Albumin Globulin Ratio 0.7 (0.9-2); BUN Creatinine Ratio 34.3 (10-20); Bilirubin,Total 0.4 mg/dl (0.2-1); Calcium 9.5 mg/dl (8.5-10.1); Creatinine Clr Calc Pharmacy 46.5 ml/min; Est GFR (African American) 70.7; Globulin 4.4 gm/dl (2.5-4.0); Magnesium 2.1 mg/dl (1.8-2.4); Phosphorus 2.6 mg/dl (2.5-4.9); Potassium 4.1 mmol/L (3.5-5.1); Total Protein 7.4 gm/dl (6.4-8.2)
[2019-06-07] MEDS: METOPROLOL SUCC 25MG EXT REL TAB PO SCH (08:49)
[2019-06-07] MEDS: ACETAMINOPHEN 325 MG TAB PO PRN ×2 (08:49→21:30)
[2019-06-07] MEDS: FUROSEMIDE 40 MG in SYRINGE 0 ML IV SCH (08:49)
[2019-06-07] MEDS: DULOXETINE HCL 30 MG CAP PO SCH ×2 (08:49→21:17)
[2019-06-07] MEDS: methylPREDNISolone 40 MG in SYRINGE 0 ML IV SCH ×3 (08:49→21:08)
[2019-06-07] MEDS: ARIPiprazole 5 MG TAB PO SCH (08:50)
[2019-06-07] MEDS: PANTOprazole 40 MG TAB PO SCH ×2 (08:50→21:17)
[2019-06-07] MEDS: FERROUS FUMARATE/ASCORBIC ACID 65 MG CAPCR PO SCH (08:50)
[2019-06-07] MEDS: AMIODARONE 200 MG TAB PO SCH ×2 (08:50→21:17)
[2019-06-07] MEDS: MULTIVITAMIN TAB PO SCH (08:50)
[2019-06-07] MEDS: lisinopriL 5 MG TAB PO SCH (08:51)
[2019-06-07] MEDS: SALMETEROL XINAFOATE 50MCG 28 BLISTER INH INH SCH (08:52)
[2019-06-07] MEDS: TIOTROPIUM BROMIDE 5 PUFF/90 MCG INH INH SCH (08:52)
--- NOTE | 2019-06-07 08:53 | Pharmacy Report ---
Pharmacy Glycemic Short Note 2 - Date of Service June 07, 2019 - Glycemic Short BSG Results (Last 24 hours): 06/06/19 06/06/19 06/06/19 12:04 16:31 20:45 Glucose POC Glucose 172 H 210 H 233 H 06/07/19 06/07/19 05:37 07:35 Glucose 186 H POC Glucose 195 H OUTPATIENT ANTIDIABETIC REGIMEN: * Lantus 15 units qAM * Novolog per SS * A1c 7.4% on 06/04/19 ASSESSMENT: 06/07 * Fasting BSG 195 this AM with 20 units basal on board and after receiving 7 units Novolog HS last evening * Patient had little PO intake yesterday, however BSGs remained elevated with current Lantus dose - will up titrate basal dose today and dose BID to allow for greater flexibility for dose titration should PO intake or steroid dosage change * Patient's diet has improved, she did consume carbs at bedtime last evening and ate nearly all her breakfast tray this AM. Will follow post-prandial BSGs today and adjust CR if necessary * Will increase correctional insulin dose this AM as BSGs elevated above goal * IV steroid continues at same dose this AM 06/06 * Patient received 15 units of basal and 4 units of bolus insulin yesterday * She remains NPO. Continues on Solu-medrol 40 mg IV q12h. * BSGs have ranged from 142-180 mg/dL in the past 24 hours * She did not receive additional basal last night since her BSG was below 180 at HS; however, she could have used this dose as BSGs have trended upwards. Will increase dose this AM and then split BID from tomorrow. * Plans to start PN tomorrow since patient has been NPO 06/05 * Patient received 13 units of basal and 10 units of bolus insulin yesterday * Fasting = 115 mg/dL * Postprandial BSGs improved yesterday * Now starting Solu-medrol 40 mg q12h so insulin requirements will increase 06/04 * 73 year old female admitted with respiratory failure, possible GI bleed. Pharmacy consulted for glycemic management. Patient currently NPO. * Patient typically on Lantus/Novolog outpatient. Did confirm with nurse at [facility] that patient did not receive any insulin this morning prior to admission. * BSG around 1000 this morning 207 mg/dL - will start reduced basal dose for NPO status and bolus insulin for glycemic management. PLAN FOR INPATIENT GLYCEMIC CONTROL: * Basal insulin - increase * Lantus 14 units SQ BID * Bolus insulin - increase correctional insulin dose * NovoLog per scale ACHS or Q6hrs and at 0200 tonight * Goal Range: Low 110 mg/dL - High 140 mg/dL * Correction Factor: 20 mg/dL/unit * Nutritional / Prandial insulin per carb ratio of 1 unit per 8 grams CHO consumed Discharge Recommendations: * A1c = 7.4% on 06/04/19 * Goal A1c < 8% based on age/comorbidities * Continue outpatient regimen on discharge
[2019-06-07] MEDS: INSULIN ASPART 100 UNITS/ML 3 ML PEN SC SCH ×4 (08:54→21:20)
[2019-06-07] MEDS: DOXYCYCLINE HYCLATE 100 MG in DEXTROSE 5% 100 ML IV SCH ×2 (08:59→21:05)
[2019-06-07] MEDS ORDERED: INSULIN GLARGINE SOLOSTAR 100 UNITS/ML 3 ML PEN SQ SCH ×2 (09:00)
--- NOTE | 2019-06-07 09:52 | Electrocardiogram Report ---
Test Reason : Blood Pressure : / mmHG Vent. Rate : 109 BPM Atrial Rate : 234 BPM P-R Int : 000 ms QRS Dur : 100 ms QT Int : 316 ms P-R-T Axes : 000 040 067 degrees QTc Int : 425 ms Atrial flutter with variable A-V block Nonspecific T wave abnormality Abnormal ECG When compared with ECG of 06-JUN-2019 12:11, Atrial flutter has replaced Sinus rhythm Nonspecific T wave abnormality now evident in Lateral leads QT has shortened Confirmed by Jamey Brown ([id number] on 06/07/2019 9:51:52 AM Referred By: [facility] [place] Confirmed By:Jamey Brown
[2019-06-07] MEDS: cefTRIAXone SODIUM 2,000 MG in DEXTROSE 5% 50 ML IV SCH (12:05)
--- NOTE | 2019-06-07 12:39 | Pulmonary Consultation ---
Date of Consultation June 07, 2019 Assessment & Plan (1) Acute on chronic respiratory failure with hypoxia and hypercapnia: -- Acute on chronic hypercapnic hypoxic respiratory failure likely sec to COPD exacerbation on top of underlying severe emphysema --> c/w steroids and inhaled bronchodilators, QTc 425, c/w doxycycline given patient is on lot of medications which can prolong QTc PCT 0.1, BNP: 1991, EF: 55-60%, Grade 1 diastolic dysfunction as per echo 06/04/19 c/w diuresis as tolerated. c/w BiPAP qhs and PRN SOB Goal SPO2: 88-92% Given patient's severe COPD with emphysema, she will benefit from non invasive ventilator at home. Will get social work involved to get working on it. Due to chronic respiratory failure consequent to COPD, patient now requires a no ninvasive home ventilator. Bilevel therapy with and without a rate would be ineffective as patient requires a volume targeted mode. Ventilation is required to decrease work of breathing and improve pulmonary status. Interruption of ventilator support would lead to decline of health status. NIMV settings should be AVAPS-AE; Breath rate: auto; Inspiratory time:auto; Sigh: off; Tidal Volume: 350-450, PS min: 4-10 PS max: 12-20; EPAP min: 6-10; EPAP max: 10-16; AVAPS rate: 14 during sleep and as needed Patient needs to follow up with Pulmonary as an outpatient get a baseline PFTs. One might consider adding azithromycin to be added Friday for her severe COPD Gold D. Would wait on this we have the PFTs back. -- Chronic metabolic alkalosis likely compensation to chronic respiratory acidosis on top of lasix Given pH on latest ABG is 7.43. Will hold Lasix and give acetazolamide 250mg BID for total of 6 doses. Can resume lasix after that. --Multiple pulmonary nodules Greatest being 7 mm, high risk patient Repeat CT chest in 3 to 6 months -- Metabolic encephalopathy likely sec to above Resolved Aspiration precautions (2) Metabolic encephalopathy: (3) COPD with emphysema: (4) Paroxysmal atrial fibrillation: History of Present Illness Attending Physician: Marv Shaw MD History of Present Illness 3.-year-old female with past medical history of diastolic CHF, chronic hypoxic respiratory failure on 3 L nasal cannula at home, COPD emphysema, paroxysmal A. fib, schizophrenia was brought into the hospital from [facility] because of worsening shortness of breath. In the ED patient was found to have PCO2 in 120s. Patient was bit altered. Patient was started on BiPAP improvement in her PCO2 and was admitted to the telemetry floor. Patient has had multiple admissions in the last couple of months for her shortness of breath last being in April. Patient is usually stays in [place] but is now moved to [place], [place] to be closer to her brother. In the time of examination patient is awake alert oriented x3. Able to answer all the questions appropriately. Able to talk in full sentences. Patient has the same in her mind that her oxygen has to be at 4 L or less she will get short of breath. At the time of examination patient was saturating 99% on 4 L nasal cannula. By the end of examination I went down to 2 L and it was still 94%. Patient stated that at the shelter she was having difficulty breathing and thus the reason she came to the ER. Right now her breathing is improved. Patient does complain of cough which is decreased in intensity. Clear phlegm. Denies any fever or chills. Denies any dysphagia. No odynophagia. No recent upper respiratory infection. No dysuria, no diarrhea, no hematuria, no hematochezia. No headache, no nausea or vomiting. No blurry vision. Patient denies any belly pain, no chest pain. No night sweats, no weight loss. Social history: Greater than [id number] smoking history quit approximately 8 years ago, no illicit drug use, no alcohol Denies any seasonal allergies. Patient has personal history of breast cancer status post left mastectomy Allergies Allergy/AdvReac Type Severity Reaction Status Date / Time prednisone Allergy Rash Unverified 06/04/19 10:41 Sulfa (Sulfonamide Allergy Unknown Unverified 06/04/19 10:41 Antibiotics) Home Medications Home Medications Medication Instructions Recorded Confirmed Type acetaminophen 350 mg PO Q4H PRN 06/04/19 06/04/19 History albuterol sulfate [Ventolin HFA] 2 puff INHALATION Q4H PRN 06/04/19 06/04/19 History amiodarone 200 mg PO BID 06/04/19 06/04/19 History aripiprazole 5 mg PO DAILY 06/04/19 06/04/19 History aspirin [Aspirin Low Dose] 81 mg PO DAILY 06/04/19 06/04/19 History docusate sodium [Stool Softener] 100 mg PO DAILY PRN 06/04/19 06/04/19 History duloxetine 30 mg PO BID 06/04/19 06/04/19 History furosemide 20 mg PO DAILY 06/04/19 06/04/19 History insulin aspart U-100 [Novolog 0 unit SUBCUT QID 06/04/19 06/04/19 History Flexpen U-100 Insulin] insulin glargine [Lantus Solostar 15 unit SUBCUT DAILY 06/04/19 06/04/19 History U-100 Insulin] lisinopril 5 mg PO DAILY 06/04/19 06/04/19 History loperamide 2 mg PO DAILY 06/04/19 06/04/19 History meclizine 25 mg PO TID PRN 06/04/19 06/04/19 History metoprolol succinate 25 mg PO DAILY 06/04/19 06/04/19 History multivitamin [Daily-Supriya] 1 tab PO DAILY 06/04/19 06/04/19 History pantoprazole 40 mg PO BID 06/04/19 06/04/19 History starch (thickening) [Thick-It] 1 ea PO TID 06/04/19 06/04/19 History tiotropium-olodaterol [Stiolto 2 puff INHALATION DAILY 06/04/19 06/04/19 History Respimat] Patient History Medical History CHF (congestive heart failure) COPD (chronic obstructive pulmonary disease) Schizoaffective disorder Family History Other Family history non-contributory Social History Preferred Language: Malian Communication Ability: Effective City Ald[place] Required: No marital status: Unknown Current Living Situation: Personal Care Facility Feels Safe at Home: Yes Smoking Status: Former smoker Second Hand Exposure: No ; Hx Alcohol Use: No Hx Substance Use: No Review of Systems Review of Systems: All systems reviewed & are unremarkable except as noted in HPI & below Physical Exam Physical Exam: Constitutional: No acute distress HEENT: EOMI, PERRLA, arcus senilis bilaterally, Mallampati 4 Respiratory system: Decreased air entry bilaterally, no wheeze, no rhonchi, no crackles CVS: S1-S2 positive, no murmurs or gallops, positive 3 out of 6 holosystolic murmur appreciated best at the aorta Abdomen: Soft, nontender, nondistended, positive bowel sounds x4 Extremities: +2 pulses bilaterally radialis/ dorsalis pedis, no cyanosis, +1 pitting edema bilateral lower extremity Neuro: Awake alert oriented x3 Psych: Normal mood and affect Skin: no rashes, warm and dry Lymphatic: no cervical or axillary lymphadenopathy Results & Data Vital Signs (Past 12 Hours) Vital Signs Temp Pulse Pulse Pulse Resp BP BP 06/07/19 11:51 36.5 C 90 20 139/69 06/07/19 10:59 89 85 16 06/07/19 07:56 36.9 C 96 H 20 142/70 H 06/07/19 07:10 91 H 20 06/07/19 04:05 36.4 C L 86 20 154/62 H 06/07/19 03:08 65 18 06/07/19 00:53 120 H 147/66 H Pulse Ox 06/07/19 11:51 93 06/07/19 10:59 99 06/07/19 07:56 94 06/07/19 07:10 96 06/07/19 04:05 96 06/07/19 03:08 96 06/07/19 00:53 06/07/19 05:37 06/07/19 05:37 06/04/19 06/05/19 06/06/19 10:32 08:16 04:34 ABG pH 7.14 L* 7.18 L* 7.39 ABG pCO2 126 H 114 H 73 H ABG pO2 88 115 H 85 ABG HCO3 42 H 42 H 43 H ABG O2 Saturation 91.4 94.2 95.3 H ABG Base Excess 9.7 H 11.2 H 15.5 H VBG pH VBG pCO2 VBG pO2 VBG HCO3 VBG O2 Saturation VBG Base Excess 06/06/19 06/06/19 17:12 20:15 ABG pH 7.43 ABG pCO2 70 H ABG pO2 65 L ABG HCO3 45 H ABG O2 Saturation 91.6 ABG Base Excess 17.9 H VBG pH 7.44 H VBG pCO2 72 H VBG pO2 52 VBG HCO3 47 VBG O2 Saturation 85.2 VBG Base Excess 19.6 Diagnostic Findings CTA chest done 06/04/2019 personally reviewed: Severe centrilobular emphysema appreciated especially in the upper lobes. Multiple pulmonary nodules ap preciated in the right middle and right lower lobe. No mediastinal or hilar lymphadenopathy appreciated. No pulmonary embolus. Patient has bilateral lower lobe dependent likely atelectasis. No clear consolidation appreciated. No previous CAT scan to compare PG Care Time/CCT Total # of Minutes Spent Total Time Spent with Patient: Total time spent is greater than 50% in coordination of care (as documented) at patient's floor/unit and/or counseling patient:
[2019-06-07] MEDS: acetaZOLAMIDE 250 MG in SYRINGE 0 ML IV SCH (13:33)
--- NOTE | 2019-06-07 18:37 | Hospitalist Progress Note ---
Date of Service June 07, 2019 Assessment & Plan (1) Acute and chronic respiratory failure: Continue admission at PCU on telemetry Vital signs every 4 hours CTA chest -no pulmonary edema Appreciate pulmonary recommendations. Will work with corrections caseworker to accommodate patient with an NIMV at home. NIMV settings should be AVAPS-AE; Breath rate: auto; Inspiratory time:auto; Sigh: off; Tidal Volume: 350-450, PS min: 4-10 PS max: 12-20; EPAP min: 6-10; EPAP max: 10-16; AVAPS rate: 14 during sleep and as needed We will hold Lasix and give acetazolamide 250 mg twice daily for total of 6 doses. Patient can resume Lasix after that. Will consider adding azithromycin to Friday regimen for her severe COPD Gold D after PFT-s are back. H&H stable at 9.5 and 31.3 after 2 units of blood. Continue monitoring Patient was at home on supplemental oxygen approximately 3 L 24/7 Duo nebs every 4 scheduled and as needed as per RT Started ceftriaxone 2 g IV and doxycycline 100 mg IV IV twice daily in the ER Procalcitonin elevated to 0.14 Given Lasix 60, 40 mg IV while patient in the ER. Patient did not respond brisk to the first dose. DVT prophylaxis SCDs and teds CODE STATUS DNR/DNI (2) Acute exacerbation of CHF (congestive heart failure): Strict in and out Daily weight TTE shows left ventricular systolic function is normal. No regional wall motion abnormality noted. There is moderate concentric left ventricular hypertrophy. Ejection fraction is 55 to 60%. Probably mild aortic stenosis. Restrict p.o. fluids to 1200 mils per day P.o. intake improving-heart healthy diet Monitor electrolytes and replenish Potassium 40 M EQ daily p.o.-start when patient cleared by speech Lasix 40 mg IV twice daily we will stop for now and continue with acetazolamide 250 mg twice daily for total of 6 doses. Then restart her Lasix as per p ulmonary recommendations. Continue lisinopril 5 mg p.o. daily, Continue metoprolol 25 mg p.o. daily starting tomorrow Aspirin 81 mg p.o. daily (3) Anemia: Acute on chronic anemia Iron studies: TIBC 238 low, ferritin 123.2, vitamin B12 1420 high, folate 24 high Pending serial occult blood Started Rupal sequel Continue monitoring H&H Transfuse if hemoglobin less than 8 (4) Altered mental status: Appreciate neurology recommendations: Altered mental status is most likely to underlining hypoxia in the setting of acute on chronic respiratory failure and that improved with BiPAP. Chronic bilateral subdural hematomas: noted on CT of the head and MRI brain. There are no signs of acute infarct or midline shift on imaging necessitating immediate transfer for neurosurgical evaluation. Given compounding co- morbidities, would allow her current respiratory failure to improve and better determine what her baseline is from brother before deciding if she needs to have surgical decompression. Does not currently have any neurological symptoms that would require urgent neurosurgical consultation or decompression at this time Continue aspirin [address] head without contrast in 1 month to assess for stability or sooner if any new neurological symptoms Follow-up with neurosurgery as an outpatient to discuss future decompression in a non-urgent manner We will obtain old records from [facility] especially CT and MRIs scans of the brain. (5) Diabetes mellitus type 2 in obese: Continue two thirds of basal home dose insulin while patient in the hospital and at risk of hypoglycemia Continue sliding scale insulin Accu-Cheks before meals and at bedtime Glycemic control per pharmacy (6) Dementia: Patient was lethargic on exam It was hard to determine the degree of patient dementia and type of dementia. Continue aripiprazole 5 mg p.o. daily (7) COPD (chronic obstructive pulmonary disease): Continue management as already discussed respiratory failure. Continue home meds tiotropium olodaterol 2 puffs daily, Ventolin HFA 2 puffs every 4 hours as needed. Appreciate pulmonary recommendations (8) GERD (gastroesophageal reflux disease): Continue pantoprazole 40 mg p.o. twice daily (9) Hypertension: Continue home medication: Lisinopril 5 mg p.o. daily, metoprolol succinate 25 mg p.o. daily starting tomorrow Furosemide 40 mg p.o. IV twice daily Amiodarone 200 mg p.o. twice daily (10) Hyperlipidemia: Lipid panel triglycerides 74, cholesterol 193 borderline LDL 111, VLDL 15, HDL 67. Continue atorvastatin 40 mg p.o. nightly. (11) Dysphagia: Appetite is improving. Since patient is daily off of BiPAP for now and she can tolerate regular food with thins. RECREATIONAL LEADER will continue to monitor in EMR however no direct treatment plan unless change in status warrants. (12) Chronic pain: Continue duloxetine 30 mg p.o. twice daily (13) Paroxysmal atrial fibrillation: Patient is in sinus rhythm currently Continue amiodarone 200 mg p.o. twice daily Patient is not on anticoagulation at home for paroxysmal A. fib's Probably due to risk of falling. (14) HX: breast cancer: Patient's left breast is removed for breast cancer several years ago. Appears to be stable at this time (15) Mild mitral regurgitation: TTE as discussed above Ongoing issue (16) Schizoaffective disorder: Patient is stable, but lethargic today She does not take any medicine for schizophrenia affective disorder. Patient will need SNF. We will start physical and occupational therapy once inpatient is less oxygen dependent. Subjective Patient seen and examined at the bedside. Patient is sitting up in the bed and having breakfast. Since her p.o. intake is improving decision was made not to proceed with PICC line and TPN. Patient continues to need oxygen and it varies between 4 and 5 L. She continues to need BiPAP at night. Regular bowel movement. Afebrile. Patient denies fever, chills, chest pain, abdominal pain, frequency, urgency. Review of Systems Review of Systems: All systems reviewed & are unremarkable except as noted in HPI & below Physical Exam Constitutional: WD/WN, vitals as above well developed and + obese; not ill appearing Eyes: PERRL, conjunctivae normal, anicteric sclerae ENMT: external ear and nose normal, oropharynx normal Neck: trachea midline, no thyromegaly Respiratory: normal respiratory effort and + hyperresonance to percussion; no labored breathing and does not use accessory muscles Auscultation: + crackles (Improving), + wheezes (Improving) and + bronchovesicular breath sounds Cardiovascular: Heart Sounds: normal S1, normal S2, + abnormal opening sounds and + murmur Palpation: + palpable S3 Vessels: + JVD and dorsalis pedis pulses present Extremities: + pedal edema (Improving) Gastrointestinal (Abdomen): normal bowel sounds, soft, nontender, no hepatosplenomegaly Musculoskeletal: no cyanosis or clubbing, extremities motor strength 5/5 Skin: no rashes, warm and dry Neurologic: PERRL, EOMI, accommodation nl, no face palsy, no dysarthria Psychiatric: A+Ox3, euthymic affect Lymphatic: no cervical or axillary lymphadenopathy Results & Data Vital Signs (Past 12 Hours) Vital Signs Temp Pulse Pulse Pulse Resp BP BP 06/07/19 15:38 82 06/07/19 15:32 88 18 06/07/19 15:20 80 18 06/07/19 15:13 36.6 C 80 18 130/64 06/07/19 11:51 36.5 C 90 20 139/69 06/07/19 10:59 89 85 16 06/07/19 07:56 36.9 C 96 H 20 142/70 H 06/07/19 07:10 91 H 20 Pulse Ox 06/07/19 15:38 06/07/19 15:32 99 06/07/19 15:20 99 06/07/19 15:13 99 06/07/19 11:51 93 06/07/19 10:59 99 06/07/19 07:56 94 06/07/19 07:10 96 PG Care Time/CCT Total # of Minutes Spent Total Time Spent with Patient: Total time spent is greater than 50% in coordination of care (as documented) at patient's floor/unit and/or counseling patient: (1) Anemia Anemia type: unspecified type Qualified Code(s): D64.9 - Anemia, unspecified
[2019-06-07] MEDS: MONTELUKAST SODIUM 10 MG TABLET PO SCH (21:16)
[2019-06-07] MEDS: INSULIN GLARGINE SOLOSTAR 100 UNITS/ML 3 ML PEN SQ SCH (21:18)
[2019-06-08] MEDS: acetaZOLAMIDE 250 MG in SYRINGE 0 ML IV SCH ×2 (01:12→14:26)
[2019-06-08] MEDS ORDERED: INSULIN ASPART 100 UNITS/ML 3 ML PEN SC ONE (02:00)
[2019-06-08] MEDS: ALBUT/IPRATROP 3MG/0.5MG NEB 3 ML VIAL NEB SCH ×6 (02:26→23:21)
[2019-06-08] MEDS: INSULIN ASPART 100 UNITS/ML 3 ML PEN SC SCH ×6 (04:12→20:42)
[2019-06-08] MEDS: methylPREDNISolone 40 MG in SYRINGE 0 ML IV SCH (05:35)
[2019-06-08] MEDS: metroNIDAZOLE 500 MG/100 ML BAG IV SCH ×3 (05:35→20:41)
[2019-06-08 07:36] LABS: BUN Creatinine Ratio 34.4 (10-20); Calcium 9.7 mg/dl (8.5-10.1); Creatinine Clr Calc Pharmacy 57.8 ml/min; Est GFR (African American) 83.5; Est GFR (Non-African American) 72.1; Magnesium 2.3 mg/dl (1.8-2.4); Phosphorus 2.9 mg/dl (2.5-4.9)
[2019-06-08 08:00] LABS: Potassium 3.1 mmol/L (3.5-5.1)
--- NOTE | 2019-06-08 08:05 | Pharmacy Report ---
Pharmacy Glycemic Short Note 2 - Date of Service June 08, 2019 - Glycemic Short BSG Results (Last 24 hours): 06/07/19 06/07/19 06/07/19 11:28 16:35 20:32 Glucose POC Glucose 245 H 126 H 226 H 06/07/19 06/08/19 06/08/19 23:58 04:04 06:18 Glucose 192 H POC Glucose 249 H 203 H 06/08/19 07:37 Glucose POC Glucose 199 H OUTPATIENT ANTIDIABETIC REGIMEN: * Lantus 15 units qAM * Novolog per SS * A1c 7.4% on 06/04/19 ASSESSMENT: 06/08 * Solu-Medrol dose increased to 40mg Q 8 hrs yesterday * Over the last 24 hrs 66 units of SQ administered and BSGs have ranged 126-249, most of which have been greater than 200 * Patient is currently receiving doses in excess of weight based "severe" stress dosing, however given lack of glycemic control will continue to uptitrate both basal and prandial insulin doses. Would anticipate patient to require 80+ units/day to achieve glycemic targets with current stressors 06/07 * Fasting BSG 195 this AM with 20 units basal on board and after receiving 7 units Novolog HS last evening * Patient had little PO intake yesterday, however BSGs remained elevated with current Lantus dose - will up titrate basal dose today and dose BID to allow f or greater flexibility for dose titration should PO intake or steroid dosage change * Patient's diet has improved, she did consume carbs at bedtime last evening and ate nearly all her breakfast tray this AM. Will follow post-prandial BSGs today and adjust CR if necessary * Will increase correctional insulin dose this AM as BSGs elevated above goal * IV steroid continues at same dose this AM 06/06 * Patient received 15 units of basal and 4 units of bolus insulin yesterday * She remains NPO. Continues on Solu-medrol 40 mg IV q12h. * BSGs have ranged from 142-180 mg/dL in the past 24 hours * She did not receive additional basal last night since her BSG was below 180 at HS; however, she could have used this dose as BSGs have trended upwards. Will increase dose this AM and then split BID from tomorrow. * Plans to start PN tomorrow since patient has been NPO PLAN FOR INPATIENT GLYCEMIC CONTROL: * Basal insulin - increase * Lantus SQ BID per the following scale * 8 units if BSG less than 130 * 17 units if BSG 130-180 * 20 units if BSG above 180 * Bolus insulin - increase * NovoLog per scale ACHS or Q6hrs and at 0000 + 0400 until BSGs well controlled * Goal Range: Low 110 mg/dL - High 140 mg/dL * Correction Factor: 18 mg/dL/unit * Nutritional / Prandial insulin per carb ratio of 1 unit per 6 grams CHO consumed Discharge Recommendations: * A1c = 7.4% on 06/04/19 * Goal A1c < 8% based on age/comorbidities * Continue outpatient regimen on discharge
--- NOTE | 2019-06-08 08:24 | Hospitalist Progress Note ---
Date of Service June 08, 2019 Assessment & Plan (1) Acute and chronic respiratory failure: Continues doing better and transferred from PCU to [facility] [place] [place]. Vital signs every 4 hours CTA chest -no pulmonary edema Appreciate pulmonary recommendations. Will work with home health care case manager to accommodate patient with trilogy. Started acetazolamide 250 mg twice daily for total of 6 doses-yesterday. Patient can resume Lasix after that. Will consider adding azithromycin to Friday regimen for her severe COPD Gold D after PFT-s are back. H&H stable 9.5/31.3 Continue monitoring Patient was at home on supplemental oxygen approximately 2 L 16/12 Duo nebs every 4 scheduled and as needed as per RT DVT prophylaxis SCDs and teds CODE STATUS DNR/DNI (2) Acute exacerbation of CHF (congestive heart failure): Strict in and out Daily weight TTE shows left ventricular systolic function is normal. No regional wall motion abnormality noted. There is moderate concentric left ventricular hypertrophy. Ejection fraction is 55 to 60%. Probably mild aortic stenosis. Restrict p.o. fluids to 1200 mils per day P.o. intake improving-heart healthy diet Monitor electrolytes and replenish Potassium 40 M EQ daily p.o.-start when patient cleared by speech Lasix 40 mg IV twice daily we will stop for now and continue with acetazolamide 250 mg twice daily for total of 6 doses. Then restart her Lasix as per pulmonary recommendations. Continue lisinopril 5 mg p.o. daily, Continue metoprolol 25 mg p.o. daily starting tomorrow Aspirin 81 mg p.o. daily (3) Anemia: Acute on chronic anemia Iron studies: TIBC 238 low, ferritin 123.2, vitamin B12 1420 high, folate 24 high Pending serial occult blood Started Rupal sequel Continue monitoring H&H Transfuse if hemoglobin less than 8 (4) Altered mental status: Appreciate neurology recommendations: Altered mental status is most likely to underlining hypoxia in the setting of acute on chronic respiratory failure and that improved with BiPAP. Chronic bilateral subdural hematomas: noted on CT of the head and MRI brain. There are no signs of acute infarct or midline shift on imaging necessitating immediate transfer for neurosurgical evaluation. Given compounding co- morbidities, would allow her current respiratory failure to improve and better determine what her baseline is from brother before deciding if she needs to have surgical decompression. Does not currently have any neurological symptoms that would require urgent neurosurgical consultation or decompression at this time Continue aspirin [address] head without contrast in 1 month to assess for stability or sooner if any new neurological symptoms Follow-up with neurosurgery as an outpatient to discuss future decompression in a non-urgent manner We will obtain old records from [facility] especially CT and MRIs scans of the brain. (5) Diabetes mellitus type 2 in obese: Continue two thirds of basal home dose insulin while patient in the hospital and at risk of hypoglycemia Continue sliding scale insulin Accu-Cheks before meals and at bedtime Glycemic control per pharmacy (6) Dementia: Patient was lethargic on exam It was hard to determine the degree of patient dementia and type of dementia. Continue aripiprazole 5 mg p.o. daily (7) COPD (chronic obstructive pulmonary disease): Continue management as already discussed respiratory failure. Continue home meds tiotropium olodaterol 2 puffs daily, Ventolin HFA 2 puffs every 4 hours as needed. Appreciate pulmonary recommendations (8) GERD (gastroesophageal reflux disease): Continue pantoprazole 40 mg p.o. twice daily (9) Hypertension: Continue home medication: Lisinopril 5 mg p.o. daily, metoprolol succinate 25 mg p.o. daily starting tomorrow Furosemide 40 mg p.o. IV twice daily Amiodarone 200 mg p.o. twice daily (10) Hyperlipidemia: Lipid panel triglycerides 74, cholesterol 193 borderline LDL 111, VLDL 15, HDL 67. Continue atorvastatin 40 mg p.o. nightly. (11) Dysphagia: Appetite is improving. Since patient is daily off of BiPAP for now and she can tolerate regular food with thins. 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 (12) Chronic pain: Continue duloxetine 30 mg p.o. twice daily (13) Paroxysmal atrial fibrillation: Patient is in sinus rhythm currently Continue amiodarone 200 mg p.o. twice daily Patient is not on anticoagulation at home for paroxysmal A. fib's Probably due to risk of falling. (14) HX: breast cancer: Patient's left breast is removed for breast cancer several years ago. Appears to be stable at this time (15) Mild mitral regurgitation: TTE as discussed above Ongoing issue (16) Schizoaffective disorder: She does not take any medicine for schizophrenia affective disorder. Disposition :patient will need SNF. We will start physical and occupational therapy once inpatient is less oxygen dependent. Subjective Patient seen and examined at the bedside. Patient is sitting up in the bed and having breakfast. Patient is doing much better now and she is only on 2 L of oxygen. She tolerates food very well. gardening manager is working on obtaining trilogy for her. Patient continues to need oxygen and it varies between 4 and 5 L. She continues to need BiPAP at night. Regular bowel movement. Afebrile. Patient denies fever, chills, chest pain, abdominal pain, frequency, urgency. Review of Systems Review of Systems: All systems reviewed & are unremarkable except as noted in HPI & below Physical Exam Constitutional: WD/WN, vitals as above well developed and + obese; not ill appearing Eyes: PERRL, conjunctivae normal, anicteric sclerae ENMT: external ear and nose normal, oropharynx normal Neck: trachea midline, no thyromegaly Respiratory: normal respiratory effort and + hyperresonance to percussion; no labored breathing and does not use accessory muscles Auscultation: no crackles (Improving), no wheezes (Improving) and no bronchovesicular breath sounds Cardiovascular: Heart Sounds: normal S1, normal S2, + abnormal opening sounds and + murmur Palpation: + palpable S3 Vessels: + JVD and dorsalis pedis pulses present Extremities: + pedal edema (Improving) Gastrointestinal (Abdomen): normal bowel sounds, soft, nontender, no hepatosplenomegaly Musculoskeletal: no cyanosis or clubbing, extremities motor strength 5/5 Skin: no rashes, warm and dry Neurologic: PERRL, EOMI, accommodation nl, no face palsy, no dysarthria Psychiatric: A+Ox3, euthymic affect Lymphatic: no cervical or axillary lymphadenopathy Results & Data Vital Signs (Past 12 Hours) Vital Signs Temp Pulse Pulse Pulse Resp BP BP 06/08/19 07:30 36.3 C L 84 18 105/69 06/08/19 07:17 76 18 06/08/19 03:57 36.9 C 78 20 114/62 06/08/19 02:28 86 18 06/08/19 00:27 85 06/07/19 23:57 36.4 C L 89 20 139/68 06/07/19 23:30 85 26 H 06/07/19 23:00 88 18 Pulse Ox 06/08/19 07:30 94 06/08/19 07:17 98 06/08/19 03:57 96 06/08/19 02:28 98 06/08/19 00:27 06/07/19 23:57 95 06/07/19 23:30 98 06/07/19 23:00 97 PG Care Time/CCT Total # of Minutes Spent Total Time Spent with Patient: Total time spent is greater than 50% in coordination of care (as documented) at patient's floor/unit and/or counseling patient: (1) Anemia Anemia type: unspecified type Qualified Code(s): D64.9 - Anemia, unspecified
[2019-06-08] MEDS: AMIODARONE 200 MG TAB PO SCH ×2 (08:50→20:43)
[2019-06-08] MEDS: METOPROLOL SUCC 25MG EXT REL TAB PO SCH (08:50)
[2019-06-08] MEDS: PANTOprazole 40 MG TAB PO SCH ×2 (08:50→20:42)
[2019-06-08] MEDS: MULTIVITAMIN TAB PO SCH (08:50)
[2019-06-08] MEDS: DULOXETINE HCL 30 MG CAP PO SCH ×2 (08:50→20:41)
[2019-06-08] MEDS: ARIPiprazole 5 MG TAB PO SCH (08:50)
[2019-06-08] MEDS: FERROUS FUMARATE/ASCORBIC ACID 65 MG CAPCR PO SCH (08:50)
[2019-06-08] MEDS: INSULIN GLARGINE SOLOSTAR 100 UNITS/ML 3 ML PEN SQ SCH ×2 (08:51→20:44)
[2019-06-08] MEDS: lisinopriL 5 MG TAB PO SCH (08:51)
[2019-06-08] MEDS: DOXYCYCLINE HYCLATE 100 MG in DEXTROSE 5% 100 ML IV SCH ×2 (08:59→20:49)
[2019-06-08] MEDS ORDERED: POTASSIUM CHLORIDE 20 MEQ TABCR PO STA (09:39)
--- NOTE | 2019-06-08 09:39 | Pulmonology Progress Note ---
Date of Service June 08, 2019 Assessment & Plan (1) Acute on chronic respiratory failure with hypoxia and hypercapnia: -- Acute on chronic hypercapnic hypoxic respiratory failure likely sec to COPD exacerbation on top of underlying severe emphysema --> Start tapering steroids to PO prednisone 40mg for 3 days followed by 20mg for 2 days. c/w inhaled bronchodilators, QTc 425, c/w doxycycline given patient is on lot of medications which can prolong QTc PCT 0.1, BNP: 1992, EF: 55-60%, Grade 1 diastolic dysfunction as per echo 06/04/19 c/w diuresis as tolerated. c/w BiPAP qhs and PRN SOB Goal SPO2: 88-92% Due to chronic respiratory failure consequent to COPD, patient now requires a noninvasive home ventilator. Bilevel therapy with and without a rate would be ineffective as patient requires a volume targeted mode. Ventilation is required to decrease work of breathing and improve pulmonary status. Interruption of ventilator support would lead to decline of health status. NIMV settings should be AVAPS-AE; Breath rate: auto; Inspiratory time:auto; Sigh: off; Tidal Volume: 350-450, PS min: 4-10 PS max: 12-20; EPAP min: 6-10; EPAP max: 10-16; AVAPS rate: 14 during sleep and as needed On discharge prescribe LABA/LAMA inhaler (Stiolto/Bevespi/Anoro). Will add ICS if need be once she follows up in the clinic. Patient needs to follow up with Pulmonary as an outpatient get a baseline PFTs. One might consider adding azithromycin to be added Friday for her severe COPD Gold D. Would wait on this we have the PFTs back. -- Chronic metabolic alkalosis likely compensation to chronic respiratory acidosis on top of lasix Given pH on latest ABG is 7.43. Hold Lasix and give acetazolamide 250mg BID for total of 6 doses. Can resume lasix after that. --Multiple pulmonary nodules Greatest being 7 mm, high risk patient Repeat CT chest in 3 to 6 months -- Metabolic encephalopathy likely sec to above Resolved Aspiration precautions -- Hypokalaemia being replaced No further recommendation from pulmonary perspective. Recall if needed. Please note the above document was generated using voice recognition software. It may contain grammatical, syntax or spelling errors. (2) Metabolic encephalopathy: (3) COPD with emphysema: (4) Paroxysmal atrial fibrillation: Subjective Patient seen and examined at bedside. No acute distress, no adverse events overnight. Patient is awake and alert. Answering all the questions appropriately. Shortness of breath is improved. Cough is decreased in intensity. No chest pain, no headache, no dizziness, no nausea, no vomiting. Able to tolerate food. No bowel movements since last of days. Denies any belly pain. Patient used BiPAP overnight. Tolerated it well used it for approximately 3 hours. Advised patient to use it at least for 5 hours. At the time of examination patient was saturating 87% on 1 L nasal cannula with heart rate of 86 at rest. Went up to 2 L nasal cannula. Review of Systems Review of Systems: All systems reviewed & are unremarkable except as noted in HPI & below Physical Exam Physical Exam: Constitutional: No acute distress HEENT: EOMI, PERRLA, arcus senilis bilaterally, Mallampati 4 Respiratory system: Decreased air entry bilaterally, no wheeze, no rhonchi, no crackles CVS: S1-S2 positive, no murmurs or gallops, positive 3 out of 6 holosystolic m urmur appreciated best at the aorta Abdomen: Soft, nontender, nondistended, positive bowel sounds x4 Extremities: +2 pulses bilaterally radialis/ dorsalis pedis, no cyanosis, +1 pitting edema bilateral lower extremity Neuro: Awake alert oriented x3 Psych: Normal mood and affect G/u: Positive [place] Skin: no rashes, warm and dry Lymphatic: no cervical or axillary lymphadenopathy Results & Data Vital Signs (Past 12 Hours) Vital Signs Temp Pulse Pulse Pulse Resp BP BP 06/08/19 07:30 36.3 C L 84 18 105/69 06/08/19 07:17 76 18 06/08/19 03:57 36.9 C 78 20 114/62 06/08/19 02:28 86 18 06/08/19 00:27 85 06/07/19 23:57 36.4 C L 89 20 139/68 06/07/19 23:30 85 26 H 06/07/19 23:00 88 18 Pulse Ox 06/08/19 07:30 94 06/08/19 07:17 98 06/08/19 03:57 96 06/08/19 02:28 98 06/08/19 00:27 06/07/19 23:57 95 06/07/19 23:30 98 06/07/19 23:00 97 06/07/19 05:37 06/08/19 06:18 PG Care Time/CCT Total # of Minutes Spent Total Time Spent with Patient: Total time spent is greater than 50% in coordination of care (as documented) at patient's floor/unit and/or counseling patient:
[2019-06-08] MEDS: POTASSIUM CHLORIDE / WTR 10 MEQ/100 ML PLCT IV SCH ×2 (11:24→12:29)
[2019-06-08] MEDS: cefTRIAXone SODIUM 2,000 MG in DEXTROSE 5% 50 ML IV SCH (12:37)
[2019-06-08] MEDS ORDERED: methylPREDNISolone 40 MG in SYRINGE 0 ML IV SCH (18:00)
[2019-06-08] MEDS: MONTELUKAST SODIUM 10 MG TABLET PO SCH (20:42)
[2019-06-08] MEDS: ACETAMINOPHEN 325 MG TAB PO PRN (20:49)
[2019-06-09] MEDS: INSULIN ASPART 100 UNITS/ML 3 ML PEN SC SCH ×6 (00:03→21:35)
[2019-06-09] MEDS: acetaZOLAMIDE 250 MG in SYRINGE 0 ML IV SCH ×2 (01:17→13:02)
[2019-06-09] MEDS: ACETAMINOPHEN 325 MG TAB PO PRN ×3 (01:18→16:15)
[2019-06-09] MEDS: ALBUT/IPRATROP 3MG/0.5MG NEB 3 ML VIAL NEB SCH ×6 (02:15→22:52)
[2019-06-09] MEDS: metroNIDAZOLE 500 MG/100 ML BAG IV SCH ×3 (05:02→21:33)
[2019-06-09 06:13] LABS: Hematocrit (blood only) 35.4 % (37-47); Hemoglobin 10.3 g/dL (12.0-16.0); Mean Corpuscular Hemoglobin 27.8 pg (25-34); Mean Corpuscular Hgb Conc 29.1 g/dL (32-36); Mean Corpuscular Volume 95.4 fL (80-100); Platelet Count 194 K/uL (130-400); RDW Coefficient of Variation 15.3 % (11.5-14.5); RDW Standard Deviation 53.1 fL (36.4-46.3); Red Blood Count 3.71 M/uL (4.2-5.4); White Blood Count 3.86 K/uL (4.8-10.8)
[2019-06-09 06:35] LABS: Immature Granulocytes # (auto) 0.28 K/uL (0.00-0.02); Immature Granulocytes % (auto) 7.3 %; Lymphocytes # (auto) 0.48 K/uL (1.2-3.4); Lymphocytes % (auto) 12.4 %; Monocytes # (auto) 0.23 K/uL (0.11-0.59); Neutrophils # (auto) 2.87 K/uL (1.4-6.5); Neutrophils % (auto) 74.3 %; Polychromasia 1+
[2019-06-09 06:45] LABS: BUN Creatinine Ratio 43.6 (10-20); Calcium 9.5 mg/dl (8.5-10.1); Creatinine Clr Calc Pharmacy 70.6 ml/min; Est GFR (African American) 101.1; Est GFR (Non-African American) 87.2; Magnesium 2.1 mg/dl (1.8-2.4); Potassium 4.3 mmol/L (3.5-5.1)
[2019-06-09 06:48] LABS: Phosphorus 2.8 mg/dl (2.5-4.9)
[2019-06-09] MEDS: methylPREDNISolone 40 MG in SYRINGE 0 ML IV SCH (08:09)
[2019-06-09] MEDS: ARIPiprazole 5 MG TAB PO SCH (08:10)
[2019-06-09] MEDS: METOPROLOL SUCC 25MG EXT REL TAB PO SCH (08:10)
[2019-06-09] MEDS: DULOXETINE HCL 30 MG CAP PO SCH ×2 (08:10→21:32)
[2019-06-09] MEDS: INSULIN GLARGINE SOLOSTAR 100 UNITS/ML 3 ML PEN SQ SCH ×2 (08:10→21:34)
[2019-06-09] MEDS: lisinopriL 5 MG TAB PO SCH (08:10)
[2019-06-09] MEDS: MULTIVITAMIN TAB PO SCH (08:10)
[2019-06-09] MEDS: FERROUS FUMARATE/ASCORBIC ACID 65 MG CAPCR PO SCH (08:10)
[2019-06-09] MEDS: AMIODARONE 200 MG TAB PO SCH ×2 (08:10→21:32)
[2019-06-09] MEDS: PANTOprazole 40 MG TAB PO SCH ×2 (08:10→21:32)
[2019-06-09] MEDS: cefTRIAXone SODIUM 2,000 MG in DEXTROSE 5% 50 ML IV SCH (13:00)
--- NOTE | 2019-06-09 14:32 | Pharmacy Report ---
Pharmacy Glycemic Short Note 2 - Date of Service June 09, 2019 - Glycemic Short BSG Results (Last 24 hours): 06/08/19 06/08/19 06/08/19 16:22 20:42 23:59 Glucose POC Glucose 102 H 113 H 198 H 06/09/19 06/09/19 06/09/19 04:00 05:42 07:13 Glucose 155 H POC Glucose 169 H 161 H 06/09/19 11:04 Glucose POC Glucose 227 H OUTPATIENT ANTIDIABETIC REGIMEN: * Lantus 15 units qAM * Novolog per SS * A1c 7.4% on 06/04/19 ASSESSMENT: 06/09 * Solu-medrol dose decreased to 40 mg daily * Over the last 24 hours 74 units of SQ administered and BSGs ranged 102-299, patient steroid dose reduced and BSGs did trend down yesterday after lunch * Fasting this morning 161, however received 3 additional units of novolog overnight. Did cut lantus dose scale to equal weight based stress dosing due to steroid change, however pt BSG elevated at lunch, will resume prior scale with slight adjustment for evening. Carb ratio was loosened. 06/08 * Solu-Medrol dose increased to 40mg Q 8 hrs yesterday * Over the last 24 hrs 66 units of SQ administered and BSGs have ranged 126-249, most of which have been greater than 200 * Patient is currently receiving doses in excess of weight based "severe" stress dosing, however given lack of glycemic control will continue to uptitrate both basal and prandial insulin doses. Would anticipate patient to require 80+ units/day to achieve glycemic targets with current stressors 06/07 * Fasting BSG 195 this AM with 20 units basal on board and after receiving 7 units Novolog HS last evening * Patient had little PO intake yesterday, however BSGs remained elevated with current Lantus dose - will up titrate basal dose today and dose BID to allow for greater flexibility for dose titration should PO intake or steroid dosage change * Patient's diet has improved, she did consume carbs at bedtime last evening and ate nearly all her breakfast tray this AM. Will follow post-prandial BSGs today and adjust CR if necessary * Will increase correctional insulin dose this AM as BSGs elevated above goal * IV steroid continues at same dose this AM 06/06 * Patient received 15 units of basal and 4 units of bolus insulin yesterday * She remains NPO. Continues on Solu-medrol 40 mg IV q12h. * BSGs have ranged from 142-180 mg/dL in the past 24 hours * She did not receive additional basal last night since her BSG was below 180 at HS; however, she could have used this dose as BSGs have trended upwards. Will increase dose this AM and then split BID from tomorrow. * Plans to start PN tomorrow since patient has been NPO PLAN FOR INPATIENT GLYCEMIC CONTROL: * Basal insulin - * Lantus SQ BID per the following scale * 8 units if BSG less than 130 * 15 units if BSG 130-180 * 20 units if BSG above 180 * Bolus insulin - loosen * NovoLog per scale ACHS or Q6hrs and at 0000 + 0400 until BSGs well controlled * Goal Range: Low 110 mg/dL - High 140 mg/dL * Correction Factor: 20 mg/dL/unit * Nutritional / Prandial insulin per carb ratio of 1 unit per 7 grams CHO consumed Discharge Recommendations: * A1c = 7.4% on 06/04/19 * Goal A1c < 8% based on age/comorbidities * Continue outpatient regimen on discharge
--- NOTE | 2019-06-09 15:29 | Internal Medicine Consult Note ---
Date of Consultation June 09, 2019 Assessment & Plan (1) Encounter for rehabilitation evaluation: Her disease is far advanced. She is tolerating the initiation of non- invasive ventilation. She is an excellent candidate for our pulmonary program. Our onsite respiratory therapist has extensive experience with her ventilation support system. The nursing team at [facility] has ICU experience which will also benefit her recovery. Given this and her muscular weakness secondary to critical illness and multifactorial encephalopathy the higher level of care in the rehab hospital makes sense for her. Will continue to follow her and be ready to accept her in transfer once the acute care phase of her treatment is completed. If any questions please call me. History of Present Illness Reason for Consultation: High Risk Rehab Evaluation Attending Physician: Kingsley Mathews History of Present Illness Ms. Iniguez suffers from hypercapnic and hypoxic respiratory failure secondary to COPD/Emphysema. Her chronic condition has deteriorated and she is now requiring non-invasive ventilation. She is profoundly weak as a result of the respiratory failure and will require some time to recovery before returning home. Her respiratory failure has been complicated by encephalopathy. She is tolerating the non-invasive ventilation well. Since admission, she has improved with regard to respiratory comfort. Allergies Allergy/AdvReac Type Severity Reaction Status Date / Time prednisone Allergy Rash Unverified 06/04/19 10:41 Sulfa (Sulfonamide Allergy Unknown Unverified 06/04/19 10:41 Antibiotics) Home Medications Home Medications Medication Instructions Recorded Confirmed Type acetaminophen 350 mg PO Q4H PRN 06/04/19 06/04/19 History albuterol sulfate [Ventolin HFA] 2 puff INHALATION Q4H PRN 06/04/19 06/04/19 History amiodarone 200 mg PO BID 06/04/19 06/04/19 History aripiprazole 5 mg PO DAILY 06/04/19 06/04/19 History aspirin [Aspirin Low Dose] 81 mg PO DAILY 06/04/19 06/04/19 History docusate sodium [Stool Softener] 100 mg PO DAILY PRN 06/04/19 06/04/19 History duloxetine 30 mg PO BID 06/04/19 06/04/19 History furosemide 20 mg PO DAILY 06/04/19 06/04/19 History insulin aspart U-100 [Novolog 0 unit SUBCUT QID 06/04/19 06/04/19 History Flexpen U-100 Insulin] insulin glargine [Lantus Solostar 15 unit SUBCUT DAILY 06/04/19 06/04/19 History U-100 Insulin] lisinopril 5 mg PO DAILY 06/04/19 06/04/19 History loperamide 2 mg PO DAILY 06/04/19 06/04/19 History meclizine 25 mg PO TID PRN 06/04/19 06/04/19 History metoprolol succinate 25 mg PO DAILY 06/04/19 06/04/19 History multivitamin [Daily-Supriya] 1 tab PO DAILY 06/04/19 06/04/19 History pantoprazole 40 mg PO BID 06/04/19 06/04/19 History starch (thickening) [Thick-It] 1 ea PO TID 06/04/19 06/04/19 History tiotropium-olodaterol [Stiolto 2 puff INHALATION DAILY 06/04/19 06/04/19 History Respimat] Patient History Medical History CHF (congestive heart failure) COPD (chronic obstructive pulmonary disease) Schizoaffective disorder Family History Other Family history non-contributory Social History Preferred Language: Setswana Communication Ability: Effective [employer] Required: No marital status: Unknown Current Living Situation: Personal Care Facility Feels Safe at Home: Yes Smoking Status: Former smoker Second Hand Exposure: No ; Hx Alcohol Use: No Hx Substance Use: No Review of Systems Review of Systems: No new ROS targets during the interview Physical Exam Physical Exam: Vitals--stable HEENT--no deficits Respiratory--COPD changes without substantial wheezing or rhonchi today Cardio--perfusion is acceptable GI--neg Musculo--no acute target Neuro--diffuse weakness Psych--calm and interactive. Results & Data Vital Signs (Past 12 Hours) Vital Signs Temp Pulse Pulse Resp BP BP Pulse Ox 06/09/19 11:31 36.6 C 82 18 161/77 H 94 06/09/19 11:24 85 24 97 06/09/19 11:04 85 18 98 06/09/19 07:57 36.7 C 98 H 19 159/79 H 91 06/09/19 06:59 77 18 98 06/09/19 04:05 36.3 C L 72 20 131/70 95
--- NOTE | 2019-06-09 20:37 | Hospitalist Progress Note ---
Date of Service June 09, 2019 Assessment & Plan (1) Acute on chronic respiratory failure with hypoxia and hypercapnia: acute component multifactorial - acute/chronic diastolic CHF, COPD exacerbation, b/l pneumonia. improved. chronic resp failure - 2nd to advanced COPD. on home O2. appreciate pulmonary recommendations. (2) Pneumonia: as seen on CTA chest - multi-focal/bilateral. day #5 of antibiotics. can likely d/c IV and change to PO tomorrow - complete 7 days in total. (3) COPD with emphysema: with exacerbation. improved. cont weaning IV steroids. cont nebs/inhalers. appreciate pulmonary consult & recs. (4) Acute exacerbation of CHF (congestive heart failure): acute/chronic diastolic CHF. acute component resolved. with IV diuresis developed considerable contraction alkalosis. lasix IV stopped. now s/p multiple doses of diamox. volume status euvolemic today clinically. cont beta raymundo. (5) Altered mental status: will need to speak with brother about baseline mental status (6) Diabetes mellitus type 2 in obese: glycemic control labile in setting of IV steroids. pharmacy managing. appreciate their assistance. cont basal-bolus insulin. (7) Dementia: this is present in her record. will d/w brother the details of this dx. (8) Anemia: full w/u this admission w/ Fe studies, b12, folate. likely due to chronic disease, frequent blood draws (multiple admissions between here and hospital in [facility]), etc cont to follow s/p PRBCs this admission. (9) Bilateral chronic intracranial subdural hematoma: as seen on MRI brain. will need to be followed as outpatient. unknown duration of these. presumably due to prior fall. (10) Schizoaffective disorder: not on antipsychotic meds follow (11) Paroxysmal atrial fibrillation: remains in NSR cont amiodarone not a good anticoagulation candidate due to chronic SDHs (12) Hypertension: controlled (13) GERD (gastroesophageal reflux disease): cont PPI bid (14) Ankle pain, right: ankle x-rays this admission w/o fracture likely sprain no significant ankle effusion on exam cont PING pain control (15) Lumbar back pain: obtain x-rays r/o compression fracture ultram prn pain (16) Dizziness: checked orthostatics - negative. vertigo?? some component of spinning at times based on her history. will schedule meclizine 12.5mg QID as the symptom is present constantly. due to SDHs?? (17) DVT prophylaxis: SCDs chemical means deferred due to subdural hematomas on MRI brain if stable on tele overnight then Tx to med/surg in am Subjective patient is very poor historian. she shifts from topic to topic frequently during the visit. she c/o "constant dizziness". initially she described it as a vertigo sensation, then stated it was not, and changed the description to more of a lightheaded feeling "all the time." it is present with sitting, standing and moving. she could not tell me when it started - but it seemed to be related to a prior hospital stay in [facility] - perhaps March or April? also c/o low back pain present "for a long time." the pain radiates into both legs and goes "from the knees down to my feet". "you gotta give me something for this" also complains of right ankle pain. thinks she sprained the ankle while at a nursing facility in [facility] in April 2019. hurts lateral aspect. PING wrap in place. tele - NSR. staff report she is getting to the chair, eating ok, and they too state she is poor historian. Review of Systems Constitutional: no fever Respiratory: + dyspnea on exertion; no cough Cardiovascular: no chest pain and no dyspnea at rest Gastrointestinal: no abdominal pain Neurologic: + loss of sensation (feet) Physical Exam Constitutional: well developed, well nourished and + altered mental status; no acute distress ENMT: external ear and nose normal, oropharynx normal Respiratory: no respiratory distress Auscultation: + diminished lung sounds (insp/exp phases; air movement quite poor); no crackles and no wheezes Cardiovascular: Rate/Rhythm: regular rate and regular rhythm Heart Sounds: normal S1, normal S2 and + murmur (2/6 RUSB) Vessels: posterior tibial pulses present and dorsalis pedis pulses present; no JVD Extremities: no edema Gastrointestinal (Abdomen): normal bowel sounds, soft, nontender, no hepatosplenomegaly Musculoskeletal: Ankle: ankle normal to inspection, no deformity and no effusion right ankle - PING wrap in place; tender over lateral ligaments to palpation; no bony tenderness Psychiatric: Orientation: alert, oriented to person and oriented to place; + not oriented to time Results & Data Vital Signs (Past 12 Hours) Vital Signs Temp Pulse Pulse Resp BP Pulse Ox 06/09/19 19:21 72 20 94 06/09/19 18:49 82 131/63 06/09/19 18:47 81 146/58 H 06/09/19 18:45 36.7 C 78 19 147/69 H 100 06/09/19 16:34 92 H 06/09/19 15:33 82 20 92 06/09/19 15:31 36.4 C L 82 23 135/72 92 06/09/19 11:31 36.6 C 82 18 161/77 H 94 06/09/19 11:24 85 24 97 06/09/19 11:04 85 18 98 Laboratory Results Laboratory Results - last 24 hr 06/08/19 06/08/19 06/09/19 20:42 23:59 04:00 WBC RBC Hgb Hct MCV MCH MCHC RDW Std Deviation RDW Coeff of Cydney Plt Count MPV Immature Gran % (Auto) Neut % (Auto) Lymph % (Auto) [place] % (Auto) Eos % (Auto) Baso % (Auto) Immature Gran # (Auto) Neut # (Auto) Lymph # (Auto) [place] # (Auto) Eos # (Auto) Baso # (Auto) Polychromasia Sodium Potassium Chloride Carbon Dioxide Anion Gap BUN Creatinine Est Cr Clr Drug Dosing Est GFR ( Amer) Est GFR (Non-Af Amer) BUN/Creatinine Ratio Glucose POC Glucose 113 H 198 H 169 H Calcium Phosphorus Magnesium 06/09/19 06/09/19 06/09/19 05:42 05:42 07:13 WBC 3.86 L RBC 3.71 L Hgb 10.3 L Hct 35.4 L MCV 95.4 MCH 27.8 MCHC 29.1 L RDW Std Deviation 53.1 H RDW Coeff of Cydney 15.3 H Plt Count 194 MPV 10.0 Immature Gran % (Auto) 7.3 Neut % (Auto) 74.3 Lymph % (Auto) 12.4 [place] % (Auto) 6.0 Eos % (Auto) 0.0 Baso % (Auto) 0.0 Immature Gran # (Auto) 0.28 H Neut # (Auto) 2.87 Lymph # (Auto) 0.48 L [place] # (Auto) 0.23 Eos # (Auto) 0.00 Baso # (Auto) 0.00 Polychromasia 1+ Sodium 138 Potassium 4.3 D Chloride 99 Carbon Dioxide 38 H Anion Gap 1.0 L BUN 29 H Creatinine 0.67 Est Cr Clr Drug Dosing 70.6 Est GFR ( Amer) 101.1 Est GFR (Non-Af Amer) 87.2 BUN/Creatinine Ratio 43.6 H Glucose 155 H POC Glucose 161 H Calcium 9.5 Phosphorus 2.8 Magnesium 2.1 06/09/19 06/09/19 06/09/19 11:04 16:28 20:32 WBC RBC Hgb Hct MCV MCH MCHC RDW Std Deviation RDW Coeff of Cydney Plt Count MPV Immature Gran % (Auto) Neut % (Auto) Lymph % (Auto) [place] % (Auto) Eos % (Auto) Baso % (Auto) Immature Gran # (Auto) Neut # (Auto) Lymph # (Auto) [place] # (Auto) Eos # (Auto) Baso # (Auto) Polychromasia Sodium Potassium Chloride Carbon Dioxide Anion Gap BUN Creatinine Est Cr Clr Drug Dosing Est GFR ( Amer) Est GFR (Non-Af Amer) BUN/Creatinine Ratio Glucose POC Glucose 227 H 294 H 262 H Calcium Phosphorus Magnesium PG Care Time/CCT Total # of Minutes Spent Total Time Spent with Patient: Total time spent is greater than 50% in coordination of care (as documented) at patient's floor/unit and/or counseling patient: (1) COPD with emphysema Emphysema type: unspecified Qualified Code(s): J43.9 - Emphysema, unspecified (2) Acute exacerbation of CHF (congestive heart failure) Heart failure type: diastolic Qualified Code(s): I50.33 - Acute on chronic diastolic (congestive) heart failure (3) Altered mental status Altered mental status type: delirium Qualified Code(s): R41.0 - Disorientation, unspecified
[2019-06-09] MEDS: TRAMADOL HCL 50 MG TABLET PO PRN (21:32)
[2019-06-09] MEDS: MONTELUKAST SODIUM 10 MG TABLET PO SCH (21:32)
[2019-06-09] MEDS: MECLIZINE 12.5 MG TAB PO SCH (21:32)
--- NOTE | 2019-06-09 22:19 | XRay Report ---
XR lumbar spine 2-3V CLINICAL HISTORY: chronic low back pain COMPARISON STUDY: No previous studies for comparison. FINDINGS: No acute fractures or traumatic subluxations are visualized. There is a grade 1 spondylolis thesis of L4 and L5. There are multilevel degenerative changes. No destructive lesions are evident. T here is a minimal spinal curvature convex to the right. IMPRESSION: 1. Mild to moderate multilevel degenerative change 2. No acute fractures. ACT 112: Negative or not required by law. Electronically signed by: Stefano Arthur M.D. 06/09/2019 10:17 PM
[2019-06-10] MEDS: INSULIN ASPART 100 UNITS/ML 3 ML PEN SC SCH ×6 (00:14→21:40)
[2019-06-10] MEDS: acetaZOLAMIDE 250 MG in SYRINGE 0 ML IV SCH (02:47)
[2019-06-10] MEDS: ALBUT/IPRATROP 3MG/0.5MG NEB 3 ML VIAL NEB SCH ×6 (03:04→22:53)
[2019-06-10] MEDS: metroNIDAZOLE 500 MG/100 ML BAG IV SCH ×3 (06:30→21:42)
[2019-06-10] MEDS: methylPREDNISolone 40 MG in SYRINGE 0 ML IV SCH (08:12)
[2019-06-10] MEDS: MULTIVITAMIN TAB PO SCH (08:12)
[2019-06-10] MEDS: DULOXETINE HCL 30 MG CAP PO SCH ×2 (08:12→21:41)
[2019-06-10] MEDS: METOPROLOL SUCC 25MG EXT REL TAB PO SCH (08:12)
[2019-06-10] MEDS: INSULIN GLARGINE SOLOSTAR 100 UNITS/ML 3 ML PEN SQ SCH ×2 (08:15→21:41)
[2019-06-10] MEDS: PANTOprazole 40 MG TAB PO SCH ×2 (08:16→21:41)
[2019-06-10] MEDS: lisinopriL 5 MG TAB PO SCH (08:16)
[2019-06-10] MEDS: FERROUS FUMARATE/ASCORBIC ACID 65 MG CAPCR PO SCH (08:16)
[2019-06-10] MEDS: ARIPiprazole 5 MG TAB PO SCH (08:16)
[2019-06-10] MEDS: AMIODARONE 200 MG TAB PO SCH ×2 (08:17→21:42)
[2019-06-10] MEDS: MECLIZINE 12.5 MG TAB PO SCH ×2 (08:17→12:06)
[2019-06-10] MEDS: TRAMADOL HCL 50 MG TABLET PO PRN ×2 (08:41→22:01)
[2019-06-10 11:28] LABS: BUN Creatinine Ratio 34.4 (10-20); Calcium 9.6 mg/dl (8.5-10.1); Est GFR (African American) 81.1; Potassium 4.5 mmol/L (3.5-5.1)
[2019-06-10] MEDS: ACETAMINOPHEN 325 MG TAB PO PRN (11:40)
[2019-06-10] MEDS: cefTRIAXone SODIUM 2,000 MG in DEXTROSE 5% 50 ML IV SCH (11:40)
--- NOTE | 2019-06-10 16:13 | Pharmacy Report ---
Pharmacy Glycemic Short Note 2 - Date of Service June 10, 2019 - Glycemic Short BSG Results (Last 24 hours): 06/09/19 06/09/19 06/10/19 16:28 20:32 00:12 Glucose POC Glucose 294 H 262 H 120 H 06/10/19 06/10/19 06/10/19 04:36 07:10 10:30 Glucose 157 H POC Glucose 105 H 82 06/10/19 11:21 Glucose POC Glucose 162 H OUTPATIENT ANTIDIABETIC REGIMEN: * Lantus 15 units qAM * Novolog per SS * A1c 7.4% on 06/04/19 ASSESSMENT: 06/10 * BSGs yesterday elevated throughout the day , patient received 70 units of insulin 31 units of basal + 46 units of bolus * Fasting this morning down to 82, will reduce lantus scale but increase carb ratio as steroid seeming is having more effect on the prandial BSGs and patient trends down overnight. * Lunch BSG improved today 06/09 * Solu-medrol dose decreased to 40 mg daily * Over the last 24 hours 74 units of SQ administered and BSGs ranged 102-299, patient steroid dose reduced and BSGs did trend down yesterday after lunch * Fasting this morning 161, however received 3 additional units of novolog overnight. Did cut lantus dose scale to equal weight based stress dosing due to steroid change, however pt BSG elevated at lunch, will resume prior scale with slight adjustment for evening. Carb ratio was loosened. 06/08 * Solu-Medrol dose increased to 40mg Q 8 hrs yesterday * Over the last 24 hrs 66 units of SQ administered and BSGs have ranged 126-249, most of which have been greater than 200 * Patient is currently receiving doses in excess of weight based "severe" stress dosing, however given lack of glycemic control will continue to uptitrate both basal and prandial insulin doses. Would anticipate patient to require 80+ units/day to achieve glycemic targets with current stressors 06/07 * Fasting BSG 195 this AM with 20 units basal on board and after receiving 7 units Novolog HS last evening * Patient had little PO intake yesterday, however BSGs remained elevated with current Lantus dose - will up titrate basal dose today and dose BID to allow for greater flexibility for dose titration should PO intake or steroid dosage change * Patient's diet has improved, she did consume carbs at bedtime last evening and ate nearly all her breakfast tray this AM. Will follow post-prandial BSGs today and adjust CR if necessary * Will increase correctional insulin dose this AM as BSGs elevated above goal * IV steroid continues at same dose this AM 06/06 * Patient received 15 units of basal and 4 units of bolus insulin yesterday * She remains NPO. Continues on Solu-medrol 40 mg IV q12h. * BSGs have ranged from 142-180 mg/dL in the past 24 hours * She did not receive additional basal last night since her BSG was below 180 at HS; however, she could have used this dose as BSGs have trended upwards. Will increase dose this AM and then split BID from tomorrow. * Plans to start PN tomorrow since patient has been NPO PLAN FOR INPATIENT GLYCEMIC CONTROL: * Basal insulin - * Lantus SQ BID per the following scale * 6 units if BSG less than 130 * 11 units if BSG 130-180 * 1 units if BSG above 180 * Bolus insulin - * NovoLog per scale ACHS or Q6hrs and at 0000 + 0400 until BSGs well controlled * Goal Range: Low 110 mg/dL - High 140 mg/dL * Correction Factor: 20 mg/dL/unit * Nutritional / Prandial insulin per carb ratio of 1 unit per 7 grams CHO consumed Discharge Recommendations: * A1c = 7.4% on 06/04/19 * Goal A1c < 8% based on age/comorbidities * Continue outpatient regimen on discharge
[2019-06-10] MEDS ORDERED: bisacodyL 5 MG TABEC PO ONE (16:44)
[2019-06-10] MEDS: POLYETHYLENE (MIRALAX) 17 GM PACK PO SCH (17:05)
--- NOTE | 2019-06-10 17:52 | XRay Report ---
XR foot RT 2V HISTORY: 73 years-old Female recent fall, metatarsal pain; eval Fx acute right foot pain status post fall COMPARISON: Right ankle radiographs 06/05/2019 TECHNIQUE: 2 views of the right foot FINDINGS: Demineralized appearance of the bones. Limited exam secondary to positioning. Diminutive morphology o f the right metatarsal. Multifocal mild and moderate osteoarthritis. Type II accessory navicular. Mar ginal spurring of the calcaneus. Mild tibiotalar osteoarthritis. No acute fracture or dislocation judy ntified. Mild dorsal forefoot soft tissue swelling. IMPRESSION: Mild dorsal forefoot soft tissue swelling without acute fracture or dislocation identifie d. ACT 112: Negative or not required by law. The above report was generated using voice recognition software. It may contain grammatical, syntax o r spelling errors. Electronically signed by: Alexis Vegas M.D. 06/10/2019 5:50 PM
--- NOTE | 2019-06-10 19:47 | Hospitalist Progress Note ---
Date of Service June 10, 2019 Assessment & Plan (1) Acute on chronic respiratory failure with hypoxia and hypercapnia: acute component multifactorial - acute/chronic diastolic CHF, COPD exacerbation, b/l pneumonia. improved/acute component resolved. chronic resp failure - 2nd to advanced COPD. on home O2. appreciate pulmonary recommendations. (2) Pneumonia: as seen on CTA chest - multi-focal/bilateral. day #6 of antibiotics. complete 7 days in total. (3) COPD with emphysema: with exacerbation. improved. cont weaning IV steroids. last day of 40mg IV tomorrow. cont nebs/inhalers. appreciate pulmonary consult & recs. (4) Acute exacerbation of CHF (congestive heart failure): acute/chronic diastolic CHF. acute component resolved. with IV diuresis developed considerable contraction alkalosis. lasix IV stopped. subsequently was s/p multiple doses of diamox. volume status euvolemic again today. cont beta raymundo. plan to increase to 50mg in am due to rapid a.fib. (5) Paroxysmal atrial fibrillation: looking at d/c summary from [facility] from 04/2019 it appears she was placed on amiodarone at that time. brother seems to think that is when it was started as well. there was mention of GI bleeding and having EGD (don't have EGD report) thus anticoagulation deferred. having numerous runs of rapid a.fib with rates 130s/140s at rest. at minimum increase BB to 50mg daily. cont amiodarone 200mg BID but clearly it is not maintaining NSR. not a good anticoagulation candidate due to chronic SDHs and the h/o GI bleeding. will ask cardiology to consult for any additional recs. (6) Altered mental status: resolved was likely met encephalopathy from infectious process at baseline today (7) Diabetes mellitus type 2 in obese: glycemic control labile in setting of IV steroids. pharmacy managing. appreciate their assistance. cont basal-bolus insulin; defer adjustments to pharmacy. (8) Dementia: this is present in her record. suspect she does indeed have mild cognitive impairment vs mild dementia at baseline with propensity to develop delirium in the hospital setting. will try to obtain old records from [place] (CT head, etc) to see when the SDHs occurred. (9) Anemia: full w/u this admission w/ Fe studies, b12, folate. likely due to chronic disease, frequent blood draws (multiple admissions between here and hospital in [facility]), etc cont to follow s/p PRBCs this admission. H/H remain stable. (10) Bilateral chronic intracranial subdural hematoma: as seen on MRI brain. will need to be followed as outpatient. unknown duration of these. presumably due to prior fall. obtain old records from [facility]. (11) Schizoaffective disorder: not on antipsychotic meds d/c summary from 04/2019 showed use of antipsychotics however brother mentioned that when he last visited her in [place] she was noncompliant and taking NO meds (12) Hypertension: controlled (13) GERD (gastroesophageal reflux disease): cont PPI bid (14) Ankle pain, right: ankle x-rays this admission w/o fracture likely sprain no significant ankle effusion on exam cont PING pain control (15) Right foot pain: check x-rays, r/o subacute fracture (16) Lumbar back pain: x-rays w/o compression fracture; DJD on those films ultram prn pain (17) Dizziness: checked orthostatics - negative. vertigo?? but no response to meclizine stop meclizine then due to SDHs?? d/c summary from 04/2019 at [facility] mentioned she had dizziness then (meclizine was on med list then as well) (18) DVT prophylaxis: SCDs chemical means deferred due to subdural hematomas on MRI brain, previous GI bleeding, etc. brother extensively updated Subjective pt's brother was at bedside today. he noted the following - 1. she had had 2 hospital stays at [facility] - 1 in 04/13, the other in 05/13 2. spent time in rehab between the 2 stays 3. during each stay had encephalopathy/confusion; at baseline typically a/o x 3 4. on O2 for several years 5. dizziness present for several months 6. he could not recall her having head imaging at [place] pt during bedside rounds c/o right foot pain in addition to right ankle pain otherwise breathing is "good" today tele - numerous (10+) runs of rapid a.fib, all self-terminating; NSR in between runs continues to c/o dizziness despite the scheduled meclizine Review of Systems Constitutional: no fever and no chills Respiratory: + cough and + dyspnea on exertion Cardiovascular: no chest pain Gastrointestinal: + constipation; no abdominal pain Physical Exam Constitutional: well developed and well nourished; no acute distress and no altered mental status (mentation improved today) ENMT: external ear and nose normal, oropharynx normal Respiratory: no respiratory distress Auscultation: + diminished lung sounds (insp/exp phases; air movement quite poor); no crackles and no wheezes Cardiovascular: Rate/Rhythm: regular rate and regular rhythm Heart Sounds: normal S1, normal S2 and + murmur (2/6 RUSB) Vessels: posterior tibial pulses present and dorsalis pedis pulses present; no JVD Extremities: no edema Gastrointestinal (Abdomen): normal bowel sounds, soft, nontender, no hepatosplenomegaly Musculoskeletal: Ankle: ankle normal to inspection, no deformity and no effusion right foot - very tender over the mid-foot metatarsals on dorsal surface; no deformity Psychiatric: Orientation: alert and oriented x 3 Results & Data Vital Signs (Past 12 Hours) Vital Signs Temp Pulse Pulse Resp BP BP Pulse Ox 06/10/19 19:26 80 18 98 06/10/19 19:21 36.5 C 77 20 161/75 H 97 06/10/19 15:19 36.7 C 83 16 134/68 95 06/10/19 15:00 80 16 99 06/10/19 11:31 87 16 97 06/10/19 11:30 36.6 C 87 22 139/75 98 Laboratory Results Laboratory Results - last 24 hr 06/09/19 06/10/19 06/10/19 20:32 00:12 04:36 Sodium Potassium Chloride Carbon Dioxide Anion Gap BUN Creatinine Est Cr Clr Drug Dosing Est GFR ( Amer) Est GFR (Non-Af Amer) BUN/Creatinine Ratio Glucose POC Glucose 262 H 120 H 105 H Calcium 06/10/19 06/10/19 06/10/19 07:10 10:30 11:21 Sodium 139 Potassium 4.5 Chloride 101 Carbon Dioxide 39 H Anion Gap -1.0 L BUN 29 H Creatinine 0.83 Est Cr Clr Drug Dosing 57.0 Est GFR ( Amer) 81.1 Est GFR (Non-Af Amer) 70.0 BUN/Creatinine Ratio 34.4 H Glucose 157 H POC Glucose 82 162 H Calcium 9.6 06/10/19 06/10/19 16:46 16:48 Sodium Potassium Chloride Carbon Dioxide Anion Gap BUN Creatinine Est Cr Clr Drug Dosing Est GFR ( Amer) Est GFR (Non-Af Amer) BUN/Creatinine Ratio Glucose POC Glucose 312 H* 333 H* Calcium PG Care Time/CCT Total # of Minutes Spent Total Time Spent with Patient: Total time spent is greater than 50% in coordination of care (as documented) at patient's floor/unit and/or counseling patient: (1) Acute exacerbation of CHF (congestive heart failure) Heart failure type: diastolic Qualified Code(s): I50.33 - Acute on chronic diastolic (congestive) heart failure (2) COPD with emphysema Emphysema type: unspecified Qualified Code(s): J43.9 - Emphysema, unspecified (3) Altered mental status Altered mental status type: delirium Qualified Code(s): R41.0 - Disorientation, unspecified
[2019-06-10] MEDS: MONTELUKAST SODIUM 10 MG TABLET PO SCH (21:41)
[2019-06-10] MEDS: MECLIZINE 12.5 MG TAB PO PRN (22:24)
[2019-06-11] MEDS: INSULIN ASPART 100 UNITS/ML 3 ML PEN SC SCH ×6 (00:13→20:51)
[2019-06-11] MEDS: ALBUT/IPRATROP 3MG/0.5MG NEB 3 ML VIAL NEB SCH ×6 (02:21→23:18)
[2019-06-11] MEDS: metroNIDAZOLE 500 MG/100 ML BAG IV SCH ×2 (06:00→12:43)
[2019-06-11] MEDS: MECLIZINE 12.5 MG TAB PO PRN (06:18)
[2019-06-11] MEDS: TRAMADOL HCL 50 MG TABLET PO PRN ×2 (06:37→21:03)
[2019-06-11] MEDS: FERROUS FUMARATE/ASCORBIC ACID 65 MG CAPCR PO SCH (08:21)
[2019-06-11] MEDS: ARIPiprazole 5 MG TAB PO SCH (08:21)
[2019-06-11] MEDS: PANTOprazole 40 MG TAB PO SCH ×2 (08:21→20:50)
[2019-06-11] MEDS: lisinopriL 5 MG TAB PO SCH (08:21)
[2019-06-11] MEDS: AMIODARONE 200 MG TAB PO SCH ×2 (08:21→20:49)
[2019-06-11] MEDS: methylPREDNISolone 40 MG in SYRINGE 0 ML IV SCH (08:21)
[2019-06-11] MEDS: MULTIVITAMIN TAB PO SCH (08:22)
[2019-06-11] MEDS: DULOXETINE HCL 30 MG CAP PO SCH ×2 (08:22→20:49)
[2019-06-11] MEDS: POLYETHYLENE (MIRALAX) 17 GM PACK PO SCH (08:26)
[2019-06-11] MEDS ORDERED: INSULIN GLARGINE SOLOSTAR 100 UNITS/ML 3 ML PEN SQ SCH (09:00)
[2019-06-11] MEDS ORDERED: METOPROLOL TARTRATE 25 MG TAB PO PRN (10:11)
[2019-06-11] MEDS: METOPROLOL SUCC 50MG EXT REL TAB PO SCH (10:23)
--- NOTE | 2019-06-11 15:37 | Cardiology Consultation ---
Date of Consultation June 11, 2019 Assessment & Plan (1) Paroxysmal atrial fibrillation: Ms. Iniguez is a 73 year old female with a history of Hypertension, Dyslipidemia, Type 2 Diabetes Mellitus, Severe COPD, Chronic Respiratory Failure, Chronic Bilateral Subdural Hematomas, Schizoaffective Disorder, GERD, Dementia, Anemia (currently has heme + stools), Obesity, Mild Aortic Stenosis, ? history of CHF, and Paroxysmal Atrial Fibrillation / Flutter who was admitted to [facility] on 06/04/2019 with Acute on Chronic Hypercapnic and Hypoxic Respiratory Failure. She was started on Amiodarone 200 mg b.i.d. sometime before April 2019 because of her Atrial Fibrillation, Atrial Flutter and her various contraindications to anticoagulation including Anemia with heme + stool, chronic subdural hematomas, and history of frequent falls. Fortunately, she has not had any prolonged episodes of A-Fib or A-Flutter and she seems to convert relatively quickly back to sinus rhythm. She may be having more frequent episodes of atrial arrhythmias due to recent and significant, acute illness, presence of IV steroids, etc or this may represent her usual pattern of atrial arrhythmias. Despite slightly elevated Pro-BNP -- patient appears euvolemic, has normal LV systolic function, normal IVC size and collapsibility, and only grade I LV diastolic dysfunction. Elevated Pro-BNP may be secondary to elevated pulmonary pressures / underlying lung disease. Recommend the followin. Continue Amiodarone 200 mg b.i.d.. 2. Continue Metoprolol Succinate ER 50 mg daily. 3. Add Lopressor 25 mg every 6 hours. 4. She is currently not a candidate for anticoagulation. 5. Continue monitoring on telemetry. 6. If any prolonged episodes or particularly fast V-rates -- would recommend titrating Lopressor to 25 mg po q 4 hours. ADDENDUM (Dr. Brown): Patient seen and examined. Agree with plan as outlined above by Mr. Adriano HACKETT. Main issue is recurrent atrial flutter with associated tachycardia. She is on maximal reasonable chronic amiodarone dose already, but does have adequate blood pressure and heart rate (when not tachycardic) to allow for additional negative chronotropic medication. Her metoprolol was increased from 50 to 75 mg daily, with the additional recommendation that metoprolol 25 mg q 6 hours PRN HR>100 bpm be added to her regimen to allow for aggressive inpatient upward titration of negative chronotropic. Adjust daily metoprolol dosing based on monitor review of the prior day's frequency of recurrent tachycardia. (2) Paroxysmal atrial flutter: -- As outlined above. (3) Acute on chronic respiratory failure with hypoxia and hypercapnia: -- Management as per hospitalist and pulmonology. (4) COPD with emphysema: -- Management as per hospitalist and pulmonology. (5) Hypertension: (6) Bilateral chronic intracranial subdural hematoma: -- Patient is NOT an anticoagulation candidate due to current anemia with heme + stools, frequent falls, chronic dizziness, and chronic subdural hematomas. (7) Anemia: -- Further management as per hospitalist service. We will continue to follow this patient. Thank you for asking us to see this patient in consultation. Supervising Physician Co-Signing Physician Notes Jamey Brown MD History of Present Illness Reason for Consultation: -- Paroxysmal Atrial Fibrillation. -- Paroxysmal Atrial Flutter. Requesting Physician: Kingsley Mathews Attending Physician: Jamey Brown MD History of Present Illness Ms. Iniguez is a 73 year old female with a history of Hypertension, Dyslipidemia, Type 2 Diabetes Mellitus, Severe COPD, Chronic Respiratory Failure, Chronic Bilateral Subdural Hematomas, Schizoaffective Disorder, GERD, Dementia, Anemia (currently has heme + stools), Obesity, Mild Aortic Stenosis, ? history of CHF, and Paroxysmal Atrial Fibrillation / Flutter who was admitted to [facility] on 06/04/2019 with Acute on Chronic Hypercapnic and Hypoxic Respiratory Failure with Respiratory Acidosis and Encephalopathy. She was started on Amiodarone 200 mg b.i.d. sometime before April 2019 because of her Atrial Fibrillation, Atrial Flutter and her various contraindications to anticoagulation. Since being admitted in an acutely ill state to [facility] she has had brief episodes of mostly Atrial Fibrillation and occasional Atrial Flutter despite her current dose of Amiodarone. She has not had any episodes lasting for more than a few minutes. She has not had any symptoms suggestive of stroke or mini-stroke. Patient is still on Solumedrol. Her respiratory status has definitely improved since being admitted. In general patient does admit chronic DUNNE at baseline which typically only worsens when her COPD is exacerbated. Patient also admits to chronic lightheadedness from the moment she gets out of bed and it lasts all day long every day. She denies any recent syncope but has had some falls. Patient admits to an occasional chest pain when she is worried about something -- but she denie s any exertional chest pain, heaviness, tightness, pressure, or discomfort. She denies any exertional neck, jaw, back, or arm pain. She denies any orthopnea or pnd -- states that she lied flat this afternoon to take a nap. Allergies Allergy/AdvReac Type Severity Reaction Status Date / Time prednisone Allergy Rash Unverified 06/04/19 10:41 Sulfa (Sulfonamide Allergy Unknown Unverified 06/04/19 10:41 Antibiotics) Home Medications Home Medications Medication Instructions Recorded Confirmed Type acetaminophen 350 mg PO Q4H PRN 06/04/19 06/04/19 History albuterol sulfate [Ventolin HFA] 2 puff INHALATION Q4H PRN 06/04/19 06/04/19 History amiodarone 200 mg PO BID 06/04/19 06/04/19 History aripiprazole 5 mg PO DAILY 06/04/19 06/04/19 History aspirin [Aspirin Low Dose] 81 mg PO DAILY 06/04/19 06/04/19 History docusate sodium [Stool Softener] 100 mg PO DAILY PRN 06/04/19 06/04/19 History duloxetine 30 mg PO BID 06/04/19 06/04/19 History furosemide 20 mg PO DAILY 06/04/19 06/04/19 History insulin aspart U-100 [Novolog 0 unit SUBCUT QID 06/04/19 06/04/19 History Flexpen U-100 Insulin] insulin glargine [Lantus Solostar 15 unit SUBCUT DAILY 06/04/19 06/04/19 History U-100 Insulin] lisinopril 5 mg PO DAILY 06/04/19 06/04/19 History loperamide 2 mg PO DAILY 06/04/19 06/04/19 History meclizine 25 mg PO TID PRN 06/04/19 06/04/19 History metoprolol succinate 25 mg PO DAILY 06/04/19 06/04/19 History multivitamin [Daily-Supriya] 1 tab PO DAILY 06/04/19 06/04/19 History pantoprazole 40 mg PO BID 06/04/19 06/04/19 History starch (thickening) [Thick-It] 1 ea PO TID 06/04/19 06/04/19 History tiotropium-olodaterol [Stiolto 2 puff INHALATION DAILY 06/04/19 06/04/19 History Respimat] Patient History Medical History CHF (congestive heart failure) COPD (chronic obstructive pulmonary disease) Schizoaffective disorder Family History Other Family history non-contributory Social History Preferred Language: [place] Communication Ability: Effective Director Religious Education Required: No marital status: Unknown Current Living Situation: Personal Care Facility Feels Safe at Home: Yes Smoking Status: Former smoker (QUIT 2011, GREATER THAN 50 PACK YEARS) Second Hand Exposure: No ; Hx Alcohol Use: No Hx Substance Use: No Physical Exam Physical Exam: GENERAL: Patient in no acute distress. HEENT: Head is atraumatic, normocephalic. EOM's intact. Facies symmetric. No perioral cyanosis. NECK: No JVD. Carotid upstrokes are + 2 bilaterally. No bruits are noted. CHEST/LUNGS: Diminished breath sounds throughout with occasional expiratory wheezes. CVS: S1 and S2 are regular with a grade 2/6 basal systolic murmur heard best at the L1orJNL and radiates to suprasternal notch and left sternal border. A2 is audible at the apex and the base. No obvious diastolic murmurs. No gallops or rubs. PMI is nondisplaced. No lifts, heaves, or thrills. No abdominal aortic or renal bruits. ABDOMINAL EXAM: Bowel sounds are present. No masses, organomegaly, or tenderness. EXTREMITIES: No clubbing or cyanosis. No edema. Intact posterior tibial and radial pulses bilaterally. NEUROLOGIC EXAM: Patient is awake, alert, and oriented. Pleasant and cooperative. Answers questions appropriately. Speech is clear. Normal mov ement in all 4 extremities. Gait pattern was not assessed. TELEMETRY: -- Currently shows normal sinus rhythm at 72 bpm. ECHOCARDIOGRAM 06/04/2019: -- Normal LV size, wall motion, and systolic function. -- Moderate concentric LVH. -- Grade I LV diastolic dysfunction. -- RV was not well visualized. -- Mild aortic stenosis. -- Mild biatrial dilatation. -- Estimated RVSP is elevated at 30 to 40 mmHg. -- IVC with normal diameter and collapsibility. Results & Data Vital Signs (Past 12 Hours) Vital Signs Temp Pulse Pulse Resp BP BP Pulse Ox 06/11/19 15:11 72 18 98 06/11/19 14:53 75 06/11/19 11:42 36.7 C 78 18 155/72 H 99 06/11/19 11:18 102 H 18 97 06/11/19 08:14 36.8 C 78 18 132/68 99 06/11/19 07:10 71 20 100 06/11/19 05:20 65 18 95 Laboratory Results Laboratory Results - last 24 hr 06/10/19 06/10/19 06/10/19 16:46 16:48 20:19 POC Glucose 312 H* 333 H* 235 H Stool Occult Bld Scrn 06/11/19 06/11/19 06/11/19 00:09 04:25 07:33 POC Glucose 189 H 99 81 Stool Occult Bld Scrn 06/11/19 06/11/19 11:20 11:25 POC Glucose 117 H Stool Occult Bld Scrn Positive A Medications Administered Active Medications Generic Name Dose Route Start Last Admin Trade Name Freq PRN Reason Stop Dose Admin Acetaminophen 650 mg 06/04/19 13:38 06/10/19 11:40 Tylenol PO 07/04/19 13:37 650 mg Q4H PRN Administration Pain or Fever Al Hydrox/Mg Hydrox/Simethicone 15 ml 06/04/19 13:38 Maalox PO 07/04/19 13:37 Q4H PRN Dyspepsia Albuterol 2 puffs 06/04/19 13:38 Ventolin Hfa INH 07/04/19 13:37 Q4H PRN Wheezing and SOB Albuterol 3 ml 06/04/19 15:00 06/11/19 15:09 Duoneb NEB 07/04/19 14:59 3 ml Q4R CESAR Administration Amiodarone HCl 200 mg 06/04/19 21:00 06/11/19 08:21 Cordarone PO 07/04/19 20:59 200 mg BID CESAR Administration Aripiprazole 5 mg 06/05/19 09:00 06/11/19 08:21 Abilify PO 07/05/19 08:59 5 mg DAILY CESAR Administration Aspirin 81 mg 06/05/19 09:00 Ecotrin Ectab PO 07/05/19 08:59 DAILY CESAR Dextrose 25 - 50 ml 06/04/19 13:38 Dextrose 50% IV 07/04/19 13:37 UD PRN Hypoglycemia Protocol Protocol Diphenhydramine HCl 12.5 mg 06/05/19 12:42 Benadryl IV 07/05/19 12:41 Q6H PRN Allergic Symptoms Docusate Sodium 100 mg 06/04/19 13:38 Colace PO 07/04/19 13:37 DAILY PRN Constipation Docusate Sodium/Ferrous Fumarate 65 mg 06/06/19 15:00 06/11/19 08:21 Rupal-Sequels PO 07/06/19 14:59 65 mg QAM CESAR Administration Duloxetine HCl 30 mg 06/04/19 21:00 06/11/19 08:22 Cymbalta PO 07/04/19 20:59 30 mg BID CESAR Administration Glucagon 1 mg 06/04/19 13:38 Glucagen SQ 07/04/19 13:37 UD PRN Hypoglycemia Protocol Protocol Glucose 4 - 8 tabs 06/04/19 13:38 Dex4 Glucose PO 07/04/19 13:37 UD PRN Hypoglycemia Protocol Protocol Glucose 15 - 30 gm 06/04/19 13:38 Glucose 40% PO 07/04/19 13:37 UD PRN Hypoglycemia Protocol Protocol Furosemide 40 mg/ Syringe 4 mls @ 4 mls/min 06/04/19 17:00 06/07/19 08:49 IV 07/04/19 16:59 4 mls/min BID17 CESAR Administration Methylprednisolone 20 mg/ 0.32 mls @ 1.5 mls/min 06/12/19 09:00 Syringe IV 06/13/19 09:01 DAILY CESAR Insulin Aspart 0 units 06/06/19 21:00 06/11/19 12:42 Novolog Flexpen SC 07/06/19 20:59 9 units ACHS CESAR Administration Protocol Insulin Aspart 0 units 06/08/19 00:00 06/11/19 04:29 Novolog Flexpen SC 07/08/19 00:00 Not Given DAILY@0000,0400 CESAR Protocol Insulin Glargine 15 units 06/12/19 09:00 Lantus Solostar Pen SQ 07/12/19 08:59 DAILY [facility] Protocol Lisinopril 5 mg 06/05/19 09:00 06/11/19 08:21 Zestril PO 07/05/19 08:59 5 mg DAILY CESAR Administration Loperamide HCl 2 mg 06/05/19 09:00 Imodium PO 07/05/19 08:59 DAILY PRN Diarrhea Magnesium Hydroxide 30 ml 06/04/19 13:38 Milk Of Magnesia PO 07/04/19 13:37 Q12H PRN Constipation Meclizine HCl 12.5 mg 06/10/19 16:45 06/11/19 06:18 Antivert PO 07/09/19 20:59 12.5 mg QID PRN Administration vertigo Metoprolol Succinate 50 mg 06/11/19 09:00 06/11/19 10:23 Toprol Xl PO 07/11/19 08:59 50 mg DAILY CESAR Administration Metoprolol Tartrate 25 mg 06/11/19 10:11 Lopressor PO 07/11/19 10:14 Q6H PRN heart rate > 100 sustained Miscellaneous 15 - 30 gm 06/04/19 13:38 Carbohydrates For Hypoglycemia PO 07/04/19 13:37 UD PRN Hypoglycemia Protocol Miscellaneous Information 1 ea 06/04/19 14:16 Consult Glycemic Management Pharmacy N/A 07/04/19 14:15 UD PRN Consult Protocol Montelukast Sodium 10 mg 06/07/19 21:00 06/10/19 21:41 Singulair PO 07/07/19 20:59 10 mg HS CESAR Administration Multivitamins 1 tab 06/05/19 09:00 06/11/19 08:22 Multivitamin Tab PO 07/05/19 08:59 1 tab DAILY CESAR Administration Pantoprazole Sodium 40 mg 06/04/19 21:00 06/11/19 08:21 Protonix PO 07/04/19 20:59 40 mg BID CESAR Administration Polyethylene Glycol 17 gm 06/04/19 13:38 06/10/19 22:24 Miralax Powder Packet PO 07/04/19 13:37 17 gm DAILY PRN Administration Constipation Polyethylene Glycol 17 gm 06/10/19 16:45 06/11/19 08:26 Miralax Powder Packet PO 07/10/19 16:44 17 gm DAILY CESAR Administration Salmeterol Xinafoate 1 puffs 06/05/19 09:00 06/07/19 08:52 Serevent Diskus INH 07/05/19 08:59 1 puffs BID CESAR Administration Tiotropium Riner 1 puffs 06/05/19 09:00 06/07/19 08:52 Spiriva INH 07/05/19 08:59 1 puffs DAILY CESAR Administration Tramadol HCl 50 mg 06/09/19 19:09 06/11/19 06:37 Ultram PO 07/09/19 19:14 50 mg Q6H PRN Administration Pain PG Care Time/CCT Total # of Minutes Spent Total Time Spent with Patient: Total time spent is greater than 50% in c oordination of care (as documented) at patient's floor/unit and/or counseling patient: (1) COPD with emphysema Emphysema type: unspecified Qualified Code(s): J43.9 - Emphysema, unspecified
--- NOTE | 2019-06-11 15:38 | Pharmacy Report ---
Pharmacy Glycemic Short Note 2 - Date of Service June 11, 2019 - Glycemic Short BSG Results (Last 24 hours): 06/10/19 06/10/19 06/10/19 16:46 16:48 20:19 POC Glucose 312 H* 333 H* 235 H 06/11/19 06/11/19 06/11/19 00:09 04:25 07:33 POC Glucose 189 H 99 81 06/11/19 11:25 POC Glucose 117 H OUTPATIENT ANTIDIABETIC REGIMEN: * Lantus 15 units qAM * Novolog per SS * A1c 7.4% on 06/04/19 ASSESSMENT: * Morning BSGs on the lower side and evening BSGs significantly elevated- this is d/t "lower" lantus dosing given in the morning for "lower" BSGs and then rebound hyperglycemia from steroids. * Pt takes Lantus in AM therefore would like to start transitioning back to larger dosing in AM rather than HS for easier transition back to outpatient dosing. * Steroids set to taper tomorrow from Solumedrol 40mg to Solumedrol 20mg IV Q24hrs - will continue to decrease insulin dosing with each step down in steroid dosing. * Aggressive CHO ratio needed for steroid induced hyperglycemia since steroids have their most profound effect on post-prandial hyperglycemia. * Insulin dosing should be split 60-70% prandial to 30-40% basal for steroid induced hyperglycemia. PLAN FOR INPATIENT GLYCEMIC CONTROL: * Basal insulin - change to Q24hr dosing stacked in AM when Solumedrol is given (also patient takes Lantus in AM as an outpatient) * [id number] units SQ daily in AM (outpatient dosing) * Bolus insulin * NovoLog per scale ACHS or Q6hrs and at 0000 + 0400 until BSGs well controlled * Goal Range: Low 110 mg/dL - High 140 mg/dL * Correction Factor: 20 mg/dL/unit * Nutritional / Prandial insulin per carb ratio of 1 unit per 5 grams CHO consumed Discharge Recommendations: * A1c = 7.4% on 06/04/19 * Goal A1c < 8% based on age/comorbidities * Continue outpatient regimen on discharge * May need to adjust NovoLog doses based on steroid doses/taper if ordered on dc.
--- NOTE | 2019-06-11 20:07 | Hospitalist Progress Note ---
Date of Service June 11, 2019 Assessment & Plan (1) Acute on chronic respiratory failure with hypoxia and hypercapnia: acute component 2nd acute/chronic diastolic CHF, COPD exacerbation, b/l pneumonia. improved/acute component resolved. chronic resp failure - 2nd to advanced COPD. on home O2 - stable on 2 L. appreciate pulmonary recommendations. (2) Pneumonia: as seen on CTA chest - multi-focal/bilateral. day #7 of antibiotics. stop abx after today's dose. clinically resolved. (3) COPD with emphysema: with exacerbation. improved/resolving. cont weaning IV steroids - tomorrow cut to 20mg daily. cont nebs/inhalers. appreciate pulmonary consult & recs. (4) Acute exacerbation of CHF (congestive heart failure): compensated. s/p lasix IV then diamox - both stopped. subsequently was s/p multiple doses of diamox. cont beta raymundo. (5) Paroxysmal atrial fibrillation: looking at d/c summary from [facility] from 04/2019 it appears she was placed on amiodarone at that time. brother seems to think that is when it was started as well. there was mention of GI bleeding and having EGD (don't have EGD report) thus anticoagulation deferred. having numerous runs of rapid a.fib with rates 130s/140s at rest. increase toprol xl to 50mg daily. cont amiodarone 200mg BID. not a good anticoagulation candidate due to chronic SDHs and the h/o GI bleeding. spoke with Dr Brown from cardiology who will consult and provide additional rate control recommendations. (6) Altered mental status: resolved was likely met encephalopathy from infectious process (7) Diabetes mellitus type 2 in obese: glycemic control improving now that steroids are being weaned. appreciate pharmacy glycemic recs. (8) Dementia: this is present in her record. suspect she does indeed have mild cognitive impairment vs mild dementia at baseline with propensity to develop delirium in the hospital setting. still attempting to obtain old records from [place] (CT head, etc) to see when the SDHs occurred. (9) Anemia: full w/u this admission w/ Fe studies, b12, folate. likely due to chronic disease, frequent blood draws (multiple admissions between here and hospital in [facility]), etc cannot rule out intermittent GI blood loss - had GI bleeding at [facility] in 04/2019 stool today is heme+ s/p PRBCs this admission. recheck CBC am cont PPI bid (10) Bilateral chronic intracranial subdural hematoma: as seen on MRI brain. will need to be followed as outpatient. unknown duration of these. presumably due to prior fall. awaiting old records/imaging from [facility]. (11) Schizoaffective disorder: not on antipsychotic meds d/c summary from 04/2019 showed use of antipsychotics however brother mentioned that when he last visited her in [place] she was noncompliant and taking NO meds (12) Hypertension: controlled (13) GERD (gastroesophageal reflux disease): cont PPI bid (14) Ankle pain, right: ankle x-rays this admission w/o fracture likely sprain cont PING pain control (15) Right foot pain: x-rays neg for subacute fracture pain control (16) Lumbar back pain: x-rays w/o compression fracture; DJD on those films ultram prn pain (17) Dizziness: checked orthostatics - negative. vertigo?? but no response to meclizine stopped meclizine B12 level wnl due to SDHs?? d/c summary from 04/[address] [facility] mentioned she had dizziness then as well refer to neurology post-d/c for additional work-up (18) DVT prophylaxis: SCDs chemical means deferred due to subdural hematomas on MRI brain, previous GI bleeding, heme+ stool, etc. brother extensively updated 06/10 at bedside accepted at [facility] rehab Subjective patient resting comfortably during the visit again had episodes of rapid a.fib overnight she again c/o dizziness and says "I wish you could do something about this" (the dizziness) had DUNNE when working with PT earlier today minimal cough moved bowels Review of Systems Constitutional: no fever and no chills Respiratory: + dyspnea on exertion; no wheezing Cardiovascular: no chest pain Gastrointestinal: no abdominal pain, no nausea, no vomiting, no constipation and no diarrhea/loose stools Physical Exam Constitutional: well developed and well nourished; no acute distress and no altered mental status ENMT: external ear and nose normal, oropharynx normal Respiratory: no respiratory distress Auscultation: + diminished lung sounds (air movement scantly improved today); no crackles and no wheezes Cardiovascular: Rate/Rhythm: regular rate and regular rhythm Heart Sounds: normal S1, normal S2 and + murmur (2/6 RUSB) Vessels: posterior tibial pulses present and dorsalis pedis pulses present; no JVD Extremities: no edema Gastrointestinal (Abdomen): normal bowel sounds, soft, nontender, no hepatosplenomegaly Psychiatric: Orientation: alert and oriented x 3 Results & Data Vital Signs (Past 12 Hours) Vital Signs Temp Pulse Pulse Resp BP BP Pulse Ox 06/11/19 19:32 36.4 C L 82 20 158/77 H 97 06/11/19 18:55 92 H 16 96 06/11/19 15:34 36.7 C 78 21 135/61 96 06/11/19 15:11 72 18 98 06/11/19 14:53 75 06/11/19 11:42 36.7 C 78 18 155/72 H 99 06/11/19 11:18 102 H 18 97 06/11/19 08:14 36.8 C 78 18 132/68 99 Laboratory Results Laboratory Results - last 24 hr 06/10/19 06/11/19 06/11/19 20:19 00:09 04:25 POC Glucose 235 H 189 H 99 Stool Occult Bld Scrn 06/11/19 06/11/19 06/11/19 07:33 11:20 11:25 POC Glucose 81 117 H Stool Occult Bld Scrn Positive A 06/11/19 16:06 POC Glucose 149 H Stool Occult Bld Scrn PG Care Time/CCT Total # of Minutes Spent Total Time Spent with Patient: Total time spent is greater than 50% in coordination of care (as documented) at patient's floor/unit and/or counseling patient: (1) COPD with emphysema Emphysema type: unspecified Qualified Code(s): J43.9 - Emphysema, unspecified (2) Acute exacerbation of CHF (congestive heart failure) Heart failure type: diastolic Qualified Code(s): I50.33 - Acute on chronic diastolic (congestive) heart failure (3) Altered mental status Altered mental status type: delirium Qualified Code(s): R41.0 - Disorientation, unspecified
[2019-06-11] MEDS: MONTELUKAST SODIUM 10 MG TABLET PO SCH (20:50)
[2019-06-12] MEDS: INSULIN ASPART 100 UNITS/ML 3 ML PEN SC SCH ×6 (00:05→20:44)
[2019-06-12] MEDS: ALBUT/IPRATROP 3MG/0.5MG NEB 3 ML VIAL NEB SCH ×6 (03:05→22:56)
[2019-06-12 06:45] LABS: Hematocrit (blood only) 36.6 % (37-47); Hemoglobin 10.8 g/dL (12.0-16.0); Mean Corpuscular Hemoglobin 28.3 pg (25-34); Mean Corpuscular Hgb Conc 29.5 g/dL (32-36); Mean Corpuscular Volume 95.8 fL (80-100); Mean Platelet Volume 10.4 fL (7.4-10.4); Platelet Count 156 K/uL (130-400); RDW Coefficient of Variation 15.8 % (11.5-14.5); RDW Standard Deviation 54.6 fL (36.4-46.3); Red Blood Count 3.82 M/uL (4.2-5.4)
[2019-06-12 07:25] LABS: BUN Creatinine Ratio 44.2 (10-20); Calcium 9.4 mg/dl (8.5-10.1); Creatinine Clr Calc Pharmacy 81.5 ml/min; Est GFR (African American) 105.4; Est GFR (Non-African American) 90.9; Potassium 4.2 mmol/L (3.5-5.1)
[2019-06-12] MEDS: TRAMADOL HCL 50 MG TABLET PO PRN ×2 (08:26→17:26)
[2019-06-12] MEDS: lisinopriL 5 MG TAB PO SCH (08:27)
[2019-06-12] MEDS: methylPREDNISolone 20 MG in SYRINGE 0 ML IV SCH (08:27)
[2019-06-12] MEDS: POLYETHYLENE (MIRALAX) 17 GM PACK PO SCH (08:27)
[2019-06-12] MEDS: MULTIVITAMIN TAB PO SCH (08:27)
[2019-06-12] MEDS: FERROUS FUMARATE/ASCORBIC ACID 65 MG CAPCR PO SCH (08:27)
[2019-06-12] MEDS: ARIPiprazole 5 MG TAB PO SCH (08:27)
[2019-06-12] MEDS: PANTOprazole 40 MG TAB PO SCH ×2 (08:27→20:39)
[2019-06-12] MEDS: METOPROLOL SUCC 50MG EXT REL TAB PO SCH (08:27)
[2019-06-12] MEDS: DULOXETINE HCL 30 MG CAP PO SCH ×2 (08:28→20:38)
[2019-06-12] MEDS: AMIODARONE 200 MG TAB PO SCH ×2 (08:28→20:39)
[2019-06-12] MEDS ORDERED: INSULIN GLARGINE SOLOSTAR 100 UNITS/ML 3 ML PEN SQ SCH ×2 (09:00)
--- NOTE | 2019-06-12 12:00 | Pharmacy Report ---
Pharmacy Glycemic Short Note 2 - Date of Service June 12, 2019 - Glycemic Short BSG Results (Last 24 hours): 06/11/19 06/11/19 06/11/19 16:06 20:19 23:57 Glucose POC Glucose 149 H 202 H 118 H 06/12/19 06/12/19 06/12/19 03:39 06:14 07:24 Glucose 81 POC Glucose 79 98 06/12/19 11:07 Glucose POC Glucose 159 H OUTPATIENT ANTIDIABETIC REGIMEN: * Lantus 15 units qAM * Novolog per SS * A1c 7.4% on 06/04/19 ASSESSMENT: * Patient received total of 48 units of insulin yesterday, of which 15 were basal insulin * Fasting BSG this AM on lower end of range at 98 mg/dL - will scale back to 13 units daily * Still receiving solumedrol - changed to 20 mg daily today / anticipate slight improvement in BSGs * BSGs tend to increase throughout the day, tighten CR with lunch PLAN FOR INPATIENT GLYCEMIC CONTROL: * Basal insulin - 13 units daily * Bolus insulin * NovoLog per scale ACHS or Q6hrs * Goal Range: Low 110 mg/dL - High 140 mg/dL * Correction Factor: 20 mg/dL/unit * Nutritional / Prandial insulin per carb ratio of 1 unit per 5 grams CHO consumed
[2019-06-12] MEDS: LOPERAMIDE HCL 2 MG CAP PO PRN ×2 (17:26→20:46)
--- NOTE | 2019-06-12 17:42 | Hospitalist Progress Note ---
Date of Service June 12, 2019 Assessment & Plan (1) Acute on chronic respiratory failure with hypoxia and hypercapnia: acute component 2nd acute/chronic diastolic CHF, COPD exacerbation, b/l pneumonia. acute component resolved. chronic resp failure - 2nd to advanced COPD. on home O2 - stable on 2 L her usual amount. appreciate pulmonary recommendations. (2) Pneumonia: b/l. completed full course of IV/PO abx (7 days). clinically resolved. (3) COPD with emphysema: with exacerbation. resolved. cont weaning IV steroids -cutting solumedrol to 20mg daily today. cont nebs/inhalers. appreciate pulmonary consult & recs. add symbicort BID. (4) Acute exacerbation of CHF (congestive heart failure): compensated. s/p lasix IV then diamox - both stopped. cont beta raymundo. resume PO lasix - maybe tomorrow based on volume status, labs, etc. (5) Paroxysmal atrial fibrillation: looking at d/c summary from [facility] from 04/2019 it appears she was placed on amiodarone at that time. brother seems to think that is when it was started as well. there was mention of GI bleeding and having EGD (don't have EGD report) thus anticoagulation deferred. having numerous runs of rapid a.fib with rates 130s/140s at rest. rates still poor when she has PAF runs. rates modestly better after increasing toprol xl to 50mg daily. cont amiodarone 200mg BID. not a good anticoagulation candidate due to chronic SDHs and the h/o GI bleeding. appreciate cardiology consultation. plan -- add toprol xl 25mg at HS in addition to 50mg every am. (6) Altered mental status: resolved was likely met encephalopathy from infectious process (7) Diabetes mellitus type 2 in obese: glycemic control per pharmacy glycemic team appreciate their assistance (8) Dementia: this is present in her record. suspect she does indeed have mild cognitive impairment vs mild dementia at baseline with propensity to develop delirium in the hospital setting. still awaiting old records from [place] (CT head, etc) to see when the SDHs occurred (multiple requests from [facility] to their hospital for this). (9) Anemia: full w/u this admission w/ Fe studies, b12, folate. likely due to chronic disease, frequent blood draws (multiple admissions between here and hospital in [facility]), etc cannot rule out intermittent GI blood loss - had GI bleeding at [facility] in 04/2019 stool is heme+ but H/H have been stable last few days. s/p PRBCs this admission. cont PPI bid poor candidate for any endoscopic evaluation. (10) Bilateral chronic intracranial subdural hematoma: as seen on MRI brain. will need to be followed as outpatient. unknown duration of these. presumably due to prior fall. awaiting old records/imaging from [place] [facility]. (11) Schizoaffective disorder: not on antipsychotic meds d/c summary from 04/2019 showed use of antipsychotics however brother mentioned that when he last visited her in [place] she was noncompliant and taking NO meds (12) Hypertension: controlled (13) GERD (gastroesophageal reflux disease): cont PPI bid (14) Ankle pain, right: ankle x-rays this admission w/o fracture likely sprain patient states the pain is improving day to day (15) Right foot pain: x-rays neg for subacute fracture pain control (16) Lumbar back pain: x-rays w/o compression fracture; DJD on those films ultram prn pain (17) Dizziness: checked orthostatics - negative. vertigo?? but no response to meclizine stopped meclizine B12 level wnl due to SDHs?? d/c summary from 04/2019 at [facility] mentioned she had dizziness then as well refer to neurology post-d/c for additional work-up echo w/o severe valve disease that was cause this symptom as final test will obtain carotid duplex (18) DVT prophylaxis: SCDs chemical means deferred due to subdural hematomas on MRI brain, previous GI bleeding, heme+ stool, etc. brother extensively updated 06/10 and 06/12 accepted at [facility] rehab - needs to remain here, however, until a.fib is better controlled Subjective tele - ongoing runs of rapid a.fib. runs are often at rest - 120s/130s. no symptoms - denies palpitations. eating better. no dyspnea or orthopnea but having DUNNE w/ minimal activity. dizzy occasionally. Review of Systems Constitutional: no fever Respiratory: no cough Cardiovascular: no chest pain Gastrointestinal: no abdominal pain Physical Exam Constitutional: well developed and well nourished; no acute distress and no altered mental status ENMT: external ear and nose normal, oropharynx normal Respiratory: no respiratory distress Auscultation: + diminished lung sounds (bilateral ); no crackles and no wheezes Cardiovascular: Rate/Rhythm: regular rate and regular rhythm Heart Sounds: normal S1, normal S2 and + murmur (2/6 RUSB) Vessels: posterior tibial pulses present (1+ b/l ) and dorsalis pedis pulses present (1+ b/l ); no JVD and + popliteal pulses abnormal (cannot feel Left; right 1+ ) Extremities: no edema Gastrointestinal (Abdomen): normal bowel sounds, soft, nontender, no hepatosplenomegaly Psychiatric: Orientation: alert and oriented x 3 Results & Data Vital Signs (Past 12 Hours) Vital Signs Temp Pulse Pulse Pulse Resp BP Pulse Ox 06/12/19 14:57 78 18 95 06/12/19 14:44 101 H 06/12/19 11:54 36.7 C 121 H 20 101/57 L 96 06/12/19 11:13 77 19 95 06/12/19 08:00 72 06/12/19 07:10 67 19 97 06/12/19 06:00 36.5 C 78 19 154/78 H 97 Laboratory Results Laboratory Results - last 24 hr 06/11/19 06/11/19 06/12/19 20:19 23:57 03:39 WBC RBC Hgb Hct MCV MCH MCHC RDW Std Deviation RDW Coeff of Cydney Plt Count MPV Sodium Potassium Chloride Carbon Dioxide Anion Gap BUN Creatinine Est Cr Clr Drug Dosing Est GFR ( Amer) Est GFR (Non-Af Amer) BUN/Creatinine Ratio Glucose POC Glucose 202 H 118 H 79 Calcium 06/12/19 06/12/19 06/12/19 06:14 06:14 07:24 WBC 5.80 RBC 3.82 L Hgb 10.8 L Hct 36.6 L MCV 95.8 MCH 28.3 MCHC 29.5 L RDW Std Deviation 54.6 H RDW Coeff of Cydney 15.8 H Plt Count 156 MPV 10.4 Sodium 139 Potassium 4.2 Chloride 98 Carbon Dioxide 42 H* Anion Gap -1.0 L BUN 26 H Creatinine 0.59 L Est Cr Clr Drug Dosing 81.5 Est GFR ( Amer) 105.4 Est GFR (Non-Af Amer) 90.9 BUN/Creatinine Ratio 44.2 H Glucose 81 POC Glucose 98 Calcium 9.4 06/12/19 06/12/19 11:07 16:12 WBC RBC Hgb Hct MCV MCH MCHC RDW Std Deviation RDW Coeff of Cydney Plt Count MPV Sodium Potassium Chloride Carbon Dioxide Anion Gap BUN Creatinine Est Cr Clr Drug Dosing Est GFR ( Amer) Est GFR (Non-Af Amer) BUN/Creatinine Ratio Glucose POC Glucose 159 H 247 H Calcium PG Care Time/CCT Total # of Minutes Spent Total Time Spent with Patient: Total time spent is greater than 50% in coordination of care (as documented) at patient's floor/unit and/or counseling patient: (1) Pneumonia Pneumonia type: due to unspecified organism Laterality: bilateral Lung location: unspecified part of lung Qualified Code(s): J18.9 - Pneumonia, unspecified organism (2) COPD with emphysema Emphysema type: unspecified Qualified Code(s): J43.9 - Emphysema, unspecified (3) Acute exacerbation of CHF (congestive heart failure) Heart failure type: diastolic Qualified Code(s): I50.33 - Acute on chronic diastolic (congestive) heart failure (4) Altered mental status Altered mental status type: delirium Qualified Code(s): R41.0 - Disorientation, unspecified
[2019-06-12] MEDS: MONTELUKAST SODIUM 10 MG TABLET PO SCH (20:40)
[2019-06-12] MEDS: METOPROLOL SUCC 25MG EXT REL TAB PO SCH (20:40)
[2019-06-13] MEDS ORDERED: INSULIN ASPART 100 UNITS/ML 3 ML PEN SC SCH
[2019-06-13] MEDS: ALBUT/IPRATROP 3MG/0.5MG NEB 3 ML VIAL NEB SCH ×7 (03:06→22:49)
[2019-06-13 07:23] LABS: BUN Creatinine Ratio 46.7 (10-20); Calcium 9.3 mg/dl (8.5-10.1); Est GFR (African American) 107.8; Est GFR (Non-African American) 93.1; Magnesium 2.4 mg/dl (1.8-2.4); Potassium 4.5 mmol/L (3.5-5.1)
[2019-06-13] MEDS: lisinopriL 5 MG TAB PO SCH (08:15)
[2019-06-13] MEDS: TRAMADOL HCL 50 MG TABLET PO PRN ×3 (08:15→20:36)
[2019-06-13] MEDS: methylPREDNISolone 20 MG in SYRINGE 0 ML IV SCH (08:15)
[2019-06-13] MEDS: METOPROLOL SUCC 50MG EXT REL TAB PO SCH (08:15)
[2019-06-13] MEDS: PANTOprazole 40 MG TAB PO SCH ×2 (08:15→20:38)
[2019-06-13] MEDS: FERROUS FUMARATE/ASCORBIC ACID 65 MG CAPCR PO SCH (08:16)
[2019-06-13] MEDS: POLYETHYLENE (MIRALAX) 17 GM PACK PO SCH (08:16)
[2019-06-13] MEDS: MULTIVITAMIN TAB PO SCH (08:16)
[2019-06-13] MEDS: DULOXETINE HCL 30 MG CAP PO SCH ×2 (08:16→20:38)
[2019-06-13] MEDS: AMIODARONE 200 MG TAB PO SCH ×2 (08:16→20:37)
[2019-06-13] MEDS: ARIPiprazole 5 MG TAB PO SCH (08:16)
[2019-06-13] MEDS: INSULIN ASPART 100 UNITS/ML 3 ML PEN SC SCH ×4 (08:18→20:43)
[2019-06-13] MEDS ORDERED: FLUTICASONE/VILANTEROL 100/25MCG 14 PUFFS/INHALER INH ONE (09:00)
[2019-06-13] MEDS ORDERED: INSULIN GLARGINE SOLOSTAR 100 UNITS/ML 3 ML PEN SQ SCH (09:00)
[2019-06-13 09:52] LABS: Appearance Urine Clear (Clear); Bacteria Urine Automated Negative (Negative); Bilirubin Urine Negative (Negative); Blood Urine Negative (Negative); Color Urine Yellow; Epithelial Cell Urine Auto 20-30 /lpf (0-5); Glucose Urine UA Negative (Negative); Ketones Urine Negative (Negative); Leukocyte Esterase Urine Trace (Negative); Nitrite Urine Negative (Negative); Protein Urine Negative (Negative); RBC Urine Automated 0-4 /hpf (0-4); Specific Gravity Urine 1.017 (1.000-1.030); Urobilinogen Urine Negative (Negative)
--- NOTE | 2019-06-13 11:35 | Ultrasound Report ---
US carotid doppler BI CLINICAL HISTORY: 73 years-old Female presenting with persistent dizziness. TECHNIQUE: Real-time grayscale and color and spectral Doppler ultrasound imaging of the bilateral car otid arteries was performed. Stenosis measurements were based on NASCET-like criteria (distal lumen d iameter as the denominator for stenosis measurement). COMPARISON: None. FINDINGS: RIGHT: Common carotid artery (CCA): Atherosclerosis at the carotid bulb. Peak systolic velocity (PSV) 83 cm/ s. Internal carotid artery (ICA): Atherosclerosis of the proximal ICA. PSV 112 cm/s. End diastolic veloc ity (EDV) 28 cm/s. ICA/CCA (systolic) ratio: 1.3. External carotid artery (ECA): Patent. PSV 120 cm/s. LEFT: CCA: Atherosclerosis at the carotid bulb. PSV 100 cm/s. ICA: Atherosclerosis of the proximal ICA. PSV 112 cm/s. EDV 39 cm/s. ICA/CCA (systolic) ratio: 1.1. ECA: Patent. PSV 86 cm/s. Bilateral antegrade flow within the vertebral arteries. Blood pressure: Brachial: Right: mmHg, Left: 131/62 mmHg. Reference ranges: Stenosis measurements are compared to reference velocity parameters by the Society of Radiologists in Ultrasound (SRU) consensus and Sonographic NASCET index (S-NASCET). * SRU Primary parameters: ICA PSV <125 cm/s = normal or less than 50% stenosis; ICA PSV 125-230 cm/s = 50-69% stenosis; ICA PSV >230 cm/s = greater than or equal to 70% stenosis. * SRU Additional parameters: ICA/CCA PSV ratio <2 = normal or less than 50% stenosis; ratio 2-4 = 5 0-69% stenosis; ratio >4 = greater than or equal to 70% stenosis. ICA EDV <40 cm/s = normal or less t rosa 50% stenosis; ICA EDV 40-100 cm/s = 50-69% stenosis; ICA EDV >100 cm/s = greater than or equal to 70% stenosis. * S-NASCET parameters: Deceleration spectral broadening + PSV <125 cm/s = less than 50% stenosis; pa nsystolic spectral broadening + PSV <125 cm/s = 16-49% stenosis; pansystolic spectral broadening + PS V >125 cm/s + EDV <110 cm/s or ICA/CCA PSV ratio 2-4 = 50-69% stenosis; pansystolic spectral broadeni ng + PSV >270 cm/s OR EDV >110 cm/s OR ICA/CCA PSV ratio >4 = 70-79% stenosis; EDV >140 cm/s = 80-99% stenosis. IMPRESSION: 1. Atherosclerosis without hemodynamically significant stenosis in the carotid arteries. ACT 112: Negative or not required by law. Electronically signed by: Marv Tabares M.D. 06/13/2019 11:34 AM
--- NOTE | 2019-06-13 12:14 | Pharmacy Report ---
Pharmacy Glycemic Short Note 2 - Date of Service June 13, 2019 - Glycemic Short BSG Results (Last 24 hours): 06/12/19 06/12/19 06/12/19 16:12 20:35 23:53 Glucose POC Glucose 247 H 171 H 137 H 06/13/19 06/13/19 06/13/19 06:32 07:44 11:25 Glucose 71 POC Glucose 72 140 H OUTPATIENT ANTIDIABETIC REGIMEN: * Lantus 15 units qAM * Novolog per SS * A1c 7.4% on 06/04/19 ASSESSMENT: 06/13 * Patient received total of 54 units of insulin yesterday, of which only 13 were basal insulin * Fasting BSG remains on lower end at 71 mg/dL (despite decrease in basal on 06/12) -will further decrease basal this AM * BSGs stable - of note, last day of solumedrol therefore will need to loosen CF/CR tomorrow AM 06/12 * Patient received total of 48 units of insulin yesterday, of which 15 were basal insulin * Fasting BSG this AM on lower end of range at 98 mg/dL - will scale back to 13 units daily * Still receiving solumedrol - changed to 20 mg daily today / anticipate slight improvement in BSGs * BSGs tend to increase throughout the day, tighten CR with lunch PLAN FOR INPATIENT GLYCEMIC CONTROL: * Basal insulin - 10 units daily * Bolus insulin - continue same for today / will loosen for 06/14 AM * NovoLog per scale ACHS or Q6hrs * Goal Range: Low 110 mg/dL - High 140 mg/dL * Correction Factor: 20 mg/dL/unit * Nutritional / Prandial insulin per carb ratio of 1 unit per 5 grams CHO consumed
[2019-06-13] MEDS: FLUTICASONE/VILANTEROL 100/25MCG 14 PUFFS/INHALER INH SCH (12:20)
[2019-06-13 16:14] LABS: Base Excess VBG 14.5 mEq/L; HCO3 VBG 43 mmol/L; Oxygen Saturation VBG < 60.0 %; PCO2 VBG 77 mmHg (38-50); PO2 VBG 30 mmHg; pH VBG 7.36 (7.36-7.41)
[2019-06-13] MEDS: CARBOHYDRATES FOR HYPOGLYCEMIA PO PRN ×2 (16:22→16:35)
--- NOTE | 2019-06-13 18:29 | Hospitalist Progress Note ---
Date of Service June 13, 2019 Assessment & Plan (1) Fatigue: VBG checked - compensated resp acidosis. Ammonia level wnl. u/a without signs of UTI. 2nd to titration of beta raymundo? 2nd to ultram use for back and leg? poor sleep? other? Encouraged more consistent use of BIPAP. Monitor carefully. (2) Urinary frequency: u/a not suggestive of UTI check PVR to ensure she is not retaining (3) Choking episode: First episode of such while hospitalized. Likely had minimal amount of aspiration with such. Symptoms resolved s/p duoneb and pulmonary toilet/coughing. Asked speech to see - bedside swallow was normal. Follow carefully. (4) Acute on chronic respiratory failure with hypoxia and hypercapnia: Present on admission. Acute component 2nd acute/chronic diastolic CHF, COPD exacerbation, b/l pneumonia. Acute component resolved. Chronic resp failure - 2nd to advanced COPD, on home O2. Stable on 2L. Keep sats 90-92%. Due to c/o fatigue I checked VBG today to r/o CO2 retention - has compensated respiratory acidosis. Encouraged her to use her BIPAP consistently at HS and with daytime naps. Appreciate pulmonary recommendations. (5) Pneumonia: b/l. completed full course of IV/PO abx (7 days). clinically resolved. (6) COPD with emphysema: with exacerbation. resolved. cont weaning IV steroids - solumedrol weaned to 20mg daily on 06/12; today is final dose. STOP all steroids after today. cont nebs/inhalers. appreciate pulmonary consult & recs. cont breo. will need to establish with pulmonary post-d/c. preparations for Trilogy in process; social work assisting with such. (7) Acute exacerbation of CHF (congestive heart failure): compensated. s/p lasix IV then diamox earlier this stay - both stopped. cont beta raymundo. holding PO lasix - has been compensated without it. perhaps use it PRN for weight gain only. (8) Paroxysmal atrial fibrillation: looking at d/c summary from [facility] from 04/2019 it appears she was placed on amiodarone at that time. brother seems to think that is when it was started as well. there was mention of GI bleeding and having EGD (don't have EGD report) thus anticoagulation deferred. Had had numerous runs of rapid a.fib with rates 130s/140s at rest during the stay despite amiodarone 200mg BID. not a good anticoagulation candidate due to chronic SDHs and the h/o GI bleeding. cardiology consulted for assistance. toprol xl had been increased from 25mg to 50mg qam a few days ago. then added 25mg at HS yesterday. last 24 hours - HRs have been excellent with 1 episode of PAF only. cont to monitor. (9) Altered mental status: resolved; was likely met encephalopathy from infectious process (10) Diabetes mellitus type 2 in obese: glycemic control per pharmacy glycemic team appreciate their assistance insulin requirements starting to decrease due to tapering of steroids (11) Dementia: this diagnosis is present in her record. suspect she does indeed have mild cognitive impairment at baseline with propensity to develop delirium in the hospital setting. (12) Anemia: full w/u this admission w/ Fe studies, b12, folate. likely due to chronic disease, frequent blood draws (multiple admissions between here and hospital in [facility]), etc cannot rule out intermittent GI blood loss - had GI bleeding at [facility] in 04/2019 stool is heme+ but H/H have been stable last few days. s/p PRBCs this admission. cont PPI bid poor candidate for any endoscopic evaluation. (13) Bilateral chronic intracranial subdural hematoma: as seen on MRI brain. will need to be followed as outpatient. unknown duration of these. presumably due to prior fall. CT head from [facility] ([facility]) from 04/2019 does not mention any SDH or subdural hygromas. However, following her 04/2019 hospital stay in [place] she went to rehab and there is no record of any fall at rehab. Thus I doubt the subdurals happened in late April or early May. Did CT at [place] simply not see the subdurals? Suspect she had had a fall sometime in 2019 - but patient adamantly denies such. (14) Schizoaffective disorder: history of such. however, she is not on antipsychotic meds d/c summary from [facility] 04/2019 showed use of antipsychotics however brother mentioned that when he last visited her in [place] she was noncompliant and not taking psych meds she seems to be doing ok without them at this time; monitor carefully off of them (15) Hypertension: controlled (16) GERD (gastroesophageal reflux disease): cont PPI bid (17) Ankle pain, right: ankle x-rays this admission w/o fracture likely sprain patient states the pain is improving day to day (18) Right foot pain: x-rays neg for subacute fracture no pain of late (19) Lumbar back pain: x-rays w/o compression fracture; DJD on those films ultram prn pain but careful use of such given her c/o fatigue (20) Dizziness: ETIOLOGY?? checked orthostatics - negative vertigo?? but no response to meclizine thus I stopped the meclizine B12 level wnl echo with mild - would not cause dizziness carotid duplex today without any ICA stenosis due to SDHs?? d/c summary from 04/2019 at [facility] mentioned she had dizziness then as well - thus a chronic issue refer to neurology post-d/c for additional work-up (21) Meningioma: 1cm in size on MRI brain this admission CT head at [facility] also with 1cm meningioma chronic no Rx at this time doubt causing any symptoms (22) DVT prophylaxis: SCDs chemical means deferred due to subdural hematomas on MRI brain, previous GI bleeding, heme+ stool, etc. brother extensively updated 06/10 and 06/12 and then again on 06/13 at bedside accepted at [facility] rehab - d/c there next 1-2 days?? Subjective patient complains of feeling tired. she did not sleep well last pm. did not use BIPAP overnight - applied but by report did not use it most of night. right before I saw her she also was drinking some fluids and had a "choking" spell on the liquids. she has had this in the past but not an every-day occurrence. staff previously have not noted any issues swallowing. she complains of dyspnea following this choking event. tele overnight - only 1 episode of PAF. HRs otherwise very good - in the 70s/80s. Review of Systems Constitutional: + fatigue; no fever, no chills and no anorexia Respiratory: as per Subjective / HPI; no cough Cardiovascular: no chest pain Gastrointestinal: no abdominal pain Genitourinary: + urinary frequency Physical Exam Constitutional: well developed and well nourished; no acute distress and no altered mental status (but sleepy today ) ENMT: external ear and nose normal, oropharynx normal Respiratory: Auscultation: + diminished lung sounds (bilateral ), + crackles (focal - right-sided ) and + wheezes (focal - right-sided) Cardiovascular: Rate/Rhythm: regular rate and regular rhythm Heart Sounds: normal S1, normal S2 and + murmur (2/6 RUSB) Vessels: posterior tibial pulses present (<1+ b/l ) and dorsalis pedis pulses present (<1+ b/l ); no JVD and + popliteal pulses abnormal (cannot feel Left; right 1+ ) Extremities: no edema Gastrointestinal (Abdomen): normal bowel sounds, soft, nontender, no hepatosplenomegaly Psychiatric: Orientation: alert and oriented x 3 (but sleepy today ) Results & Data Vital Signs (Past 12 Hours) Vital Signs Temp Pulse Pulse Resp BP Pulse Ox 06/13/19 15:40 68 06/13/19 15:11 36.2 C L 64 18 119/58 L 100 06/13/19 14:54 81 19 97 06/13/19 12:52 74 18 99 06/13/19 11:58 36.8 C 68 20 114/69 98 06/13/19 08:00 63 06/13/19 07:21 73 18 99 Laboratory Results Laboratory Results - last 24 hr 06/12/19 06/12/19 06/13/19 20:35 23:53 06:32 VBG pH VBG pCO2 VBG pO2 VBG HCO3 VBG O2 Saturation VBG Base Excess Barometric Pressure Sodium 141 Potassium 4.5 Chloride 98 Carbon Dioxide 44 H* Anion Gap -1.0 L BUN 26 H Creatinine 0.55 L Est Cr Clr Drug Dosing 86.0 Est GFR ( Amer) 107.8 Est GFR (Non-Af Amer) 93.1 BUN/Creatinine Ratio 46.7 H Glucose 71 POC Glucose 171 H 137 H Calcium 9.3 Magnesium 2.4 Ammonia Urine Color Urine Appearance Urine pH Ur Specific [place] Urine Protein Urine Glucose (UA) Urine Ketones Urine Blood Urine Nitrite Urine Bilirubin Urine Urobilinogen Ur Leukocyte Esterase Urine WBC (Auto) Urine RBC (Auto) U Hyaline Cast (Auto) U Epithel Cells (Auto) Urine Bacteria (Auto) 06/13/19 06/13/19 06/13/19 07:44 09:35 11:25 VBG pH VBG pCO2 VBG pO2 VBG HCO3 VBG O2 Saturation VBG Base Excess Barometric Pressure Sodium Potassium Chloride Carbon Dioxide Anion Gap BUN Creatinine Est Cr Clr Drug Dosing Est GFR ( Amer) Est GFR (Non-Af Amer) BUN/Creatinine Ratio Glucose POC Glucose 72 140 H Calcium Magnesium Ammonia Urine Color Yellow Urine Appearance Clear Urine pH 5.0 Ur Specific [place] 1.017 Urine Protein Negative Urine Glucose (UA) Negative Urine Ketones Negative Urine Blood Negative Urine Nitrite Negative Urine Bilirubin Negative Urine Urobilinogen Negative Ur Leukocyte Esterase Trace H Urine WBC (Auto) 1-5 Urine RBC (Auto) 0-4 U Hyaline Cast (Auto) 1-5 U Epithel Cells (Auto) 20-30 H Urine Bacteria (Auto) Negative 06/13/19 06/13/19 06/13/19 15:58 15:58 16:15 VBG pH 7.36 VBG pCO2 77 H VBG pO2 30 VBG HCO3 43 VBG O2 Saturation < 60.0 VBG Base Excess 14.5 Barometric Pressure 731.2 Sodium Potassium Chloride Carbon Dioxide Anion Gap BUN Creatinine Est Cr Clr Drug Dosing Est GFR ( Amer) Est GFR (Non-Af Amer) BUN/Creatinine Ratio Glucose POC Glucose 67 L* Calcium Magnesium Ammonia < 10.0 L Urine Color Urine Appearance Urine pH Ur Specific [place] Urine Protein Urine Glucose (UA) Urine Ketones Urine Blood Urine Nitrite Urine Bilirubin Urine Urobilinogen Ur Leukocyte Esterase Urine WBC (Auto) Urine RBC (Auto) U Hyaline Cast (Auto) U Epithel Cells (Auto) Urine Bacteria (Auto) 06/13/19 06/13/19 06/13/19 16:17 16:31 16:49 VBG pH VBG pCO2 VBG pO2 VBG HCO3 VBG O2 Saturation VBG Base Excess Barometric Pressure Sodium Potassium Chloride Carbon Dioxide Anion Gap BUN Creatinine Est Cr Clr Drug Dosing Est GFR ( Amer) Est GFR (Non-Af Amer) BUN/Creatinine Ratio Glucose POC Glucose 64 L* 67 L* 97 Calcium Magnesium Ammonia Urine Color Urine Appearance Urine pH Ur Specific [place] Urine Protein Urine Glucose (UA) Urine Ketones Urine Blood Urine Nitrite Urine Bilirubin Urine Urobilinogen Ur Leukocyte Esterase Urine WBC (Auto) Urine RBC (Auto) U Hyaline Cast (Auto) U Epithel Cells (Auto) Urine Bacteria (Auto) Diagnostic Findings carotid duplex study - no ICA stenosis PG Care Time/CCT Total # of Minutes Spent Total Time Spent with Patient: Total time spent is greater than 50% in coordination of care (as documented) at patient's floor/unit and/or counseling patient: (1) Pneumonia Pneumonia type: due to unspecified organism Laterality: bilateral Lung location: unspecified part of lung Qualified Code(s): J18.9 - Pneumonia, unspecified organism (2) COPD with emphysema Emphysema type: unspecified Qualified Code(s): J43.9 - Emphysema, unspecified (3) Acute exacerbation of CHF (congestive heart failure) Heart failure type: diastolic Qualified Code(s): I50.33 - Acute on chronic diastolic (congestive) heart failure (4) Altered mental status Altered mental status type: delirium Qualified Code(s): R41.0 - Disorientation, unspecified (5) Fatigue Fatigue type: unspecified Qualified Code(s): R53.83 - Other fatigue
[2019-06-13] MEDS: MONTELUKAST SODIUM 10 MG TABLET PO SCH (20:38)
[2019-06-13] MEDS: METOPROLOL SUCC 25MG EXT REL TAB PO SCH (20:39)
[2019-06-14] MEDS ORDERED: INSULIN ASPART 100 UNITS/ML 3 ML PEN SC SCH
[2019-06-14] MEDS: TRAMADOL HCL 50 MG TABLET PO PRN (02:10)
[2019-06-14] MEDS: ALBUT/IPRATROP 3MG/0.5MG NEB 3 ML VIAL NEB SCH ×3 (02:56→11:23)
[2019-06-14 06:56] LABS: Hematocrit (blood only) 36.8 % (37-47); Hemoglobin 10.7 g/dL (12.0-16.0); Mean Corpuscular Hemoglobin 28.3 pg (25-34); Mean Corpuscular Hgb Conc 29.1 g/dL (32-36); Mean Corpuscular Volume 97.4 fL (80-100); Mean Platelet Volume 10.8 fL (7.4-10.4); Platelet Count 149 K/uL (130-400); RDW Coefficient of Variation 15.9 % (11.5-14.5); RDW Standard Deviation 55.4 fL (36.4-46.3); Red Blood Count 3.78 M/uL (4.2-5.4); White Blood Count 5.42 K/uL (4.8-10.8)
[2019-06-14 07:34] LABS: Calcium 9.2 mg/dl (8.5-10.1); Creatinine Clr Calc Pharmacy 92.5 ml/min; Est GFR (African American) 109.9; Est GFR (Non-African American) 94.8; Potassium 4.5 mmol/L (3.5-5.1)
[2019-06-14] MEDS: FLUTICASONE/VILANTEROL 100/25MCG 14 PUFFS/INHALER INH SCH (08:31)
[2019-06-14] MEDS: FERROUS FUMARATE/ASCORBIC ACID 65 MG CAPCR PO SCH (08:34)
[2019-06-14] MEDS: lisinopriL 5 MG TAB PO SCH (08:34)
[2019-06-14] MEDS: ARIPiprazole 5 MG TAB PO SCH (08:34)
[2019-06-14] MEDS: MULTIVITAMIN TAB PO SCH (08:34)
[2019-06-14] MEDS: DULOXETINE HCL 30 MG CAP PO SCH (08:34)
[2019-06-14] MEDS: AMIODARONE 200 MG TAB PO SCH (08:39)
[2019-06-14] MEDS: PANTOprazole 40 MG TAB PO SCH (08:39)
[2019-06-14] MEDS: POLYETHYLENE (MIRALAX) 17 GM PACK PO SCH (08:39)
[2019-06-14] MEDS: METOPROLOL SUCC 50MG EXT REL TAB PO SCH (08:39)
--- NOTE | 2019-06-14 08:44 | Pharmacy Report ---
Pharmacy Glycemic Short Note 2 - Date of Service June 14, 2019 - Glycemic Short BSG Results (Last 24 hours): 06/13/19 06/13/19 06/13/19 11:25 16:15 16:17 Glucose POC Glucose 140 H 67 L* 64 L* 06/13/19 06/13/19 06/13/19 16:31 16:49 19:59 Glucose POC Glucose 67 L* 97 316 H* 06/13/19 06/13/19 06/14/19 20:28 22:23 00:00 Glucose POC Glucose 312 H* 226 H 184 H 06/14/19 06/14/19 05:50 07:32 Glucose 90 POC Glucose 94 OUTPATIENT ANTIDIABETIC REGIMEN: * Lantus 15 units SC qAM * Novolog per SS ACHS * A1c 7.4% on 06/04/19 The patient is currently ordered: * Basal insulin - Lantus 10 units SC qAM * Bolus insulin - continue same for today / will loosen for 20 AM * NovoLog per scale ACHS or Q6hrs * Goal Range: Low 110 mg/dL - High 140 mg/dL * Correction Factor: 25 mg/dL/unit * Nutritional / Prandial insulin per carb ratio of 1 unit per 6 grams CHO consumed ASSESSMENT: * Patient received total of 55 units of insulin yesterday, of which only 10 were basal insulin * Steroids discontinued - expect insulin sensitivity to increase, especially in regards to prandial insulin * Novolog parameters loosened slightly yesterday in response to BSG < 70 mg/dL at dinner. Will continue to loosen. * Fasting BSG remains on lower end at 94 mg/dL - will add BSG parameters to provide decreased dose for lower BSG's PLAN FOR INPATIENT GLYCEMIC CONTROL: * Basal insulin - Lantus SC qAM based on BSG * 6 units for BSG less than 110 mg/dL * 10 units for BSG 110 mg/dL or greater * Bolus insulin - continue same for today / will loosen for 20 AM * NovoLog per scale ACHS or Q6hrs * Goal Range: Low 110 mg/dL - High 140 mg/dL * Loosen Correction Factor: 30 mg/dL/unit * Loosen Nutritional / Prandial insulin per carb ratio of 1 unit per 8 grams CHO consumed
[2019-06-14] MEDS ORDERED: INSULIN GLARGINE SOLOSTAR 100 UNITS/ML 3 ML PEN SQ SCH (09:00)
[2019-06-14] MEDS: INSULIN ASPART 100 UNITS/ML 3 ML PEN SC SCH ×2 (09:11→12:53)
[2019-06-14] MEDS ORDERED: MECLIZINE HCL 25 MG TAB PO PRN (09:42)
--- NOTE | 2019-06-14 10:47 | Cardiology Progress Note ---
Date of Service June 14, 2019 Assessment & Plan (1) Paroxysmal atrial fibrillation: Ms. Iniguez is a 73 year old female with a history of Hypertension, Dyslipidemia, Type 2 Diabetes Mellitus, Severe COPD, Chronic Respiratory Failure, Chronic Bilateral Subdural Hematomas, Schizoaffective Disorder, GERD, Dementia, Anemia (currently has heme + stools), Obesity, Mild Aortic Stenosis, ? history of CHF, and Paroxysmal Atrial Fibrillation / Flutter who was admitted to [facility] on 06/04/2019 with Acute on Chronic Hypercapnic and Hypoxic Respiratory Failure. She was started on Amiodarone 200 mg b.i.d. sometime before April 2019 because of her Atrial Fibrillation, Atrial Flutter and her various contraindications to anticoagulation including Anemia with heme + stool, chronic subdural hematomas, and history of frequent falls. We suspected that more frequent episodes of atrial arrhythmias were due to her recently being acutely ill and compromised, receiving IV steroids, etc.-- which may have played a role. But with the use of medications and her acute on chronic respiratory failure improving the frequency of her A-Fib has become much less. Patient is currently on Amiodarone 200 mg b.i.d. and Toprol XL 50 mg q am and 25 mg q pm and is tolerating this regimen without side effects. She also has Lopressor 25 mg every 6 hours as needed for HR > 100 bpm. Fortunately, she converted back to and has maintained a normal sinus rhythm for > 30 hours. Recommend the followin. Continue Amiodarone 200 mg b.i.d.. 2. Continue Metoprolol Succinate ER 75 mg daily. 3. Continue Lopressor 25 mg every 6 hours as needed for HR > 100 bpm. 4. She is currently not a candidate for anticoagulation. 5. Continue monitoring on telemetry. CARDIOLOGY ATTENDING ADDENDUM (Dr. Brown): Patient seen, interviewed, and examined. Agree with above assessment and recommendations by Oscar Oh PA-C. Patient has remained in sinus rhythm for several days with appropriately controlled heart rate on her current basal vasoactive regimen. Okay for discharge on her current dose of beta-raymundo. (2) Paroxysmal atrial flutter: -- As outlined above. (3) Acute on chronic respiratory failure with hypoxia and hypercapnia: -- Management as per hospitalist and pulmonology. (4) COPD with emphysema: -- Management as per hospitalist and pulmonology. (5) Hypertension: (6) Bilateral chronic intracranial subdural hematoma: -- Patient is NOT an anticoagulation candidate due to current anemia with heme + stools, frequent falls, chronic dizziness, and chronic subdural hematomas. (7) Anemia: -- Further management as per hospitalist service. (8) Vertigo: -- Trial of Meclizine 25 mg q 8 hours as needed. -- Question if subdural hematomas contribute to her vertigo. Supervising Physician Co-Signing Physician Notes Jamey Brown MD Subjective Ms. Iniguez is a 73 year old female with a history of Hypertension, Dyslipidemia, Type 2 Diabetes Mellitus, Severe COPD, Chronic Respiratory Failure, Chronic Bilateral Subdural Hematomas, Schizoaffective Disorder, GERD, Dementia, Anemia (currently has heme + stools), Obesity, Mild Aortic Stenosis, ? history of CHF, and Paroxysmal Atrial Fibrillation / Flutter who was admitted to [facility] on 06/04/2019 with Acute on Chronic Hypercapnic and Hypoxic Respiratory Failure with Respiratory Acidosis and Encephalopathy. She was started on Amiodarone 200 mg b.i.d. sometime before April 2019 because of her Atrial Fibrillation, Atrial Flutter and her various contraindications to anticoagulation. Patient's respiratory status has definitely improved from the end of last week, but she still complains of DUNNE due to her severe COPD. Her primary complaint today is vertigo -- which has been present for years. Most noticeable with position changes. She requests medication for this. Patient is currently in a normal sinus rhythm -- her last episode of A-Fib ended at 0230 on 06/13/2019 (> 24 hours ago). Patient is very pleased about this. She offers no other complaints. She denies any chest pain, heaviness, tightness, or pressure. She denies any orthopnea or pnd. She denies any palpitations yesterday or so far today. She denies any syncope or near syncope. Physical Exam Physical Exam: GENERAL: Patient in no acute distress. She is sitting in a bedside chair. HEENT: Head is atraumatic, normocephalic. EOM's intact. Facies symmetric. No perioral cyanosis. NECK: No JVD. Carotid upstrokes are + 2 bilaterally. No bruits are noted. CHEST/LUNGS: Diminished breath sounds throughout with an occasional late expiratory wheeze. CVS: S1 and S2 are regular with a grade 2/6 basal systolic murmur heard best at the right 2nd ICS and radiates to suprasternal notch and left sternal border. A2 is audible at the apex and the base. No obvious diastolic murmurs. No gallops or rubs. PMI is nondisplaced. No lifts, heaves, or thrills. No abdominal aortic or renal bruits. ABDOMINAL EXAM: Bowel sounds are present. No masses, organomegaly, or tenderness. EXTREMITIES: No clubbing or cyanosis. No edema. Intact posterior tibial and radial pulses bilaterally. NEUROLOGIC EXAM: Patient is awake, alert, and oriented. Pleasant and cooperative. Answers questions appropriately. Speech is clear. Normal movement in all 4 extremities. Gait pattern was not assessed. TELEMETRY: -- Currently shows normal sinus rhythm at 66 bpm. -- Last episode of A-fib ended on 06/13/2019 at 0230, converted to a sinus rhythm. ECHOCARDIOGRAM 06/04/2019: -- Normal LV size, wall motion, and systolic function. -- Moderate concentric LVH. -- Grade I LV diastolic dysfunction. -- RV was not well visualized. -- Mild aortic stenosis. -- Mild biatrial dilatation. -- Estimated RVSP is elevated at 30 to 40 mmHg. -- IVC with normal diameter and collapsibility. Results & Data Vital Signs (Past 12 Hours) Vital Signs Temp Pulse Pulse Pulse Resp BP Pulse Ox 06/14/19 07:33 36.9 C 67 20 138/68 100 06/14/19 06:53 81 19 98 06/14/19 03:04 36.4 C L 68 20 156/71 H 99 06/14/19 02:59 64 14 98 06/13/19 22:58 36.4 C L 71 20 162/66 H 100 06/13/19 22:51 76 22 96 06/13/19 22:49 76 22 96 PG Care Time/CCT Total # of Minutes Spent Total Time Spent with Patient: Total time spent is greater than 50% in coordination of care (as documented) at patient's floor/unit and/or counseling patient: (1) COPD with emphysema Emphysema type: unspecified Qualified Code(s): J43.9 - Emphysema, unspecified
[2019-06-14] MEDS ORDERED: IPRATROPIUM BROMIDE/ALBUTEROL respimat INH INH PRN (11:10)
--- NOTE | 2019-06-14 12:04 | Discharge Summary ---
Date of Service June 14, 2019 Admission HPI Per Admitting Provider The patient is a 73 years old female with past medical history of congestive heart failure, COPD, former smoker for many years, paroxysmal atrial fibrillation's, diabetes mellitus type 2, GERD, depression, hypertension, history of benign positional vertigo, dysphagia who was brought by EMS with a concern that patient was hypoxic while in her [facility] personal half-way. Patient moved 10 days ago from [facility] to [place] to be closer to his brother who lives in [place], [place]. Patient is resting in the bed, she is poor historian with BiPAP mask on her face and increased respiratory rate of 31-35, therefore at this point not able to give any history nor ROS but her brother gave pretty detailed history about what patient was going through in the past several months. Apparently in March patient was in [facility] for acute respiratory failure, then in April she was admitted again to the same hospital and ended up in the ICU (patient records are pending from [facility]) and finally 10 days ago patient was again in the admitted to the hospital and discharged from there and in the meantime moved to [place]. Patient is 24/7 supplemental oxygen. She usually uses 3 L, but yesterday and the day before she needed 5L to keep up with her oxygen needs above 92%. Chest x-rays are reviewed and shows cardiomegaly, suspected volume overload and congestive changes versus less likely a severe reactive or inflammatory airways disease. No merlyn pulmonary edema at this time or focal infiltrate to suggest pneumonia. Labs are reviewed: WBC is 19.47, hemoglobin 8, hematocrit 28.2, platelets 222, PT 10.4, INR 1, APTT 21.4, ABG pH 7.14, PCO2 126, PO2 88, bicarb 42, base excess 9.7, sodium 141, potassium 4.2, chloride 96, anion gap 3, BUN 18, creatinine 0.82, GFR 71, magnesium 2.3, total bili 0.4, AST 33, ALT 23, alkaline phosphatase 64, troponin 0.015, BNP 2550, total protein 8.1, albumin 3.2, globulin 4.9, procalcitonin 0.14 , TSH 4.44. Decision was made to admit patient at PCU on telemetry for acute on chronic respiratory failure, acute exacerbation of congestive heart failure, respiratory acidosis and all other comorbidities. Admission Exam Per Admitting Provider Constitutional: WD/WN, vitals as above well developed, + ill appearing and + o bese Eyes: PERRL, conjunctivae normal, anicteric sclerae ENMT: external ear and nose normal, oropharynx normal Neck: trachea midline, no thyromegaly Respiratory: + respiratory distress, + labored breathing, + uses accessory muscles and + hyperresonance to percussion Auscultation: + crackles, + wheezes and + bronchovesicular breath sounds Cardiovascular: Heart Sounds: normal S1, normal S2, + abnormal opening sounds and + murmur Palpation: + palpable S3 Vessels: + JVD and dorsalis pedis pulses present Extremities: + pedal edema Gastrointestinal (Abdomen): normal bowel sounds, soft, nontender, no hepatosplenomegaly Musculoskeletal: no cyanosis or clubbing, extremities motor strength 5/5 Skin: no rashes, warm and dry Neurologic: PERRL, EOMI, accommodation nl, no face palsy, no dysarthria Lethargic but arousable Psychiatric: A+Ox3, euthymic affect Lymphatic: no cervical or axillary lymphadenopathy Principal Diagnosis Acute on chronic respiratory failure with hypoxia and hypercapnia Community Acquired pneumonia COPD exacerbation Paroxysmal atrial fibrillation Acute on chronic diastolic congestive heart failure Suspected GI bleed Discharge Exam Constitutional well developed; + not well nourished, no acute distress, not ill appearing and no altered mental status (feeling sleepy) Eyes + anicteric sclerae; normal pupil size ENMT external ear and nose normal, oropharynx normal Neck trachea midline, no thyromegaly Respiratory normal respiratory effort; no respiratory distress, no labored breathing and does not use accessory muscles Auscultation: + diminished lung sounds (bilateral ); no crackles, no wheezes and no bronchovesicular breath sounds Cardiovascular Rate/Rhythm: regular rate and regular rhythm Heart Sounds: normal S1, normal S2 and + murmur (2/6 RUSB) Vessels: no JVD Extremities: + pedal edema (1+ b/l equal) Musculoskeletal no cyanosis or clubbing, extremities motor strength 5/5 Ankle: ankle normal to inspection, no deformity and no effusion Skin no rashes, warm and dry Neurologic moves all extremities and awake; no focal motor deficits (grossly equal but weak) and not confused Psychiatric A+Ox3, euthymic affect Discharge Data Allergies Allergy/AdvReac Type Severity Reaction Status Date / Time prednisone Allergy Rash Unverified 06/04/19 10:41 Sulfa (Sulfonamide Allergy Unknown Unverified 06/04/19 10:41 Antibiotics) Consultations 06/04/19 13:38 Consult Case Management - Discharge Planning Routine 06/04/19 17:56 Consult Neurology Routine 06/06/19 14:39 Consult Pulmonology Routine 06/07/19 12:40 Consult Case Management - Discharge Planning Routine 06/10/19 19:45 Consult Health Information Management Routine 06/11/19 08:43 Consult Cardiology Routine 06/14/19 08:07 Consult Health Information Management Routine 06/14/19 11:50 [facility] COPD/Pnx Program Referral Routine Ordered Studies 06/04/19 11:46 CT head/brain wo con Stat 06/04/19 12:20 CT angio chest PE protocol Stat 06/04/19 17:55 MR brain wo con Stat 06/13/19 US carotid doppler BI Routine Hospital Course (1) Fatigue: Ellen Iniguez is a 73 year old female admitted to [facility] from June 04 to 2019 initially due to shortness of breath. She appeared to be multifactorial due to a combination of acute on chronic diastolic congestive heart failure due to paroxysmal atrial fibrillation episodes in addition to pneumonia and COPD exacerbation. Her treatment courrse for each condition is listed below and she was discharged to [facility] for further rehabilitation: COPD exacerbation - completed course of steroids. None further required on discharge. She was also started on Breo Ellipta inhaler and combivent as needed. Arrangements also made for [facility] as advised by pulmonology due to chronic hypoxic hypercapnic respiratory failure to be used at night and as needed. She should follow up with [facility] pulmonology for further management of this. Pneumonia - completed course of antibiotics, none further required on discharge. T2DM - Basal insulin decreased due to low glucose levels - Lantus 10 units daily. At request of her brother Novolog changed to Humalog for insurance purposes and sliding scale recommended at [facility] which may have to be simplified on discharge. Chronic subdural hematoma - reviewed by neurology. Possibly due to fall in March. Recommended CT head in approximately 1 month, consider referral to neurology as outpatient. Paroxysmal atrial fibrillation - increased metoprolol as per cardiology recommendations. Continue on amiodarone. Not on anticoagulation secondary to GI bleed. GI bleed - heme positive stool, recent GI bleed during hospitalization in [place]. Stable now s/p 2 units PRBCs this admission. Acute congestive heart failure - IV diuretics given during hospitalization. Recommend PRN lasix on discharge as now stable for a number of days off lasix. Neuropathic leg pain - given tramadol while admitted but given chronic nature of this and drowsiness with tramadol this was discontinued. Consider gabapentin as outpatient if continues to be an issue affecting her rehabilitation. Drowsiness - suspect due to meclizine and tramadol use. 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 Tramadol suspected to be main cause of drowsiness has now been discontinued. Recommend also giving abilify at night. Kind regards, Dr Kingsley Camacho (2) Urinary frequency: (3) Choking episode: (4) Acute on chronic respiratory failure with hypoxia and hypercapnia: (5) Pneumonia: (6) COPD with emphysema: (7) Acute exacerbation of CHF (congestive heart failure): (8) Paroxysmal atrial fibrillation: (9) Altered mental status: (10) Diabetes mellitus type 2 in obese: (11) Dementia: (12) Anemia: (13) Bilateral chronic intracranial subdural hematoma: (14) Schizoaffective disorder: (15) Hypertension: (16) GERD (gastroesophageal reflux disease): (17) Ankle pain, right: (18) Right foot pain: (19) Lumbar back pain: (20) Dizziness: (21) Meningioma: Total Time Total Time Spent Total Time Spent (In Minutes): 55 Total Time Includes: Examination of the Patient, Discharge Planning and Medication Reconciliation Discharge Plan Discharge Items Patient Disposition: Transfer Inpatient Rehab Fac Reason For Visit: ACUTE RESPIRATORY FAILURE Discharge Diagnosis: Acute on chronic respiratory failure with hypoxia and hypercapnia Community Acquired pneumonia COPD exacerbation Paroxysmal atrial fibrillation Acute on chronic diastolic congestive heart failure Suspected GI bleed Condition on Discharge: Fair Activity: Resume your previous activity Non-emergency contact: Primary Care Provider Call non-emergency contact if: you have any medication questions and your symptoms worsen Follow-up/Referrals: [facility] [Primary Care Provider] - Diet: Carb Consistent or DM2 Addtl Attending Provider Instructions: You were admitted to [facility] from June 04 to 2019 due to shortness of breath. This was due to a combination of acute on chronic diastolic congestive heart failure due to paroxysmal atrial fibrillation episodes in addition to pneumonia and COPD exacerbation. You were treated as below: COPD exacerbation - completed course of steroids. Non further required on discharge. You were also started on Breo Ellipta inhaler and combivent as needed. You are also to wear Trelegy device at night and as needed. Please Follow up with pulmonology for further management of this. Pneumonia - completed course of antibiotics, none further required on discharge. T2DM - Basal insulin decreased due to low glucose levels - Lantus 10 units daily. At request of your brother Novolog changed to Humalog and sliding scale recommended at [facility] which may have to be simplified on discharge. Chronic subdural hematoma - reviewed by neurology. Possibly due to fall in March. Recommended CT head in approximately 1 month ( Paroxysmal atrial fibrillation - increased metoprolol as per cardiology recommendations. Continue on amiodarone. Not on anticoagulation secondary to GI bleed. GI bleed - heme positive stool, recent GI bleed during hospitalization in [place]. Stable now s/p 2 units PRBCs this admission. Acute congestive heart failure - IV diuretics given during hospitalization. Recommend PRN lasix on discharge as now stable for a number of days off this. Neuropathic leg pain - given tramadol while admitted but given chronic nature of this and drowsiness with tramadol this was discontinued. Consider gabapentin as outpatient if continues to be an issue affecting her rehabilitation. Drowsiness - suspect due to meclizine and . 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 Tramadol suspected to be main cause of drowsiness has now been discontinued. Recommend also giving abilify at night. Pending Studies at Discharge: No Stand-Alone Forms: My [facility] Skilled Items Patient informed of condition?: Yes DNR: Yes Discharge Level of Care: Acute rehab Communicable Disease: No Discharge Prognosis: Stable Lines: None Urinary Catheter: No Medications and DC Order Prescriptions: New metoprolol succinate 50 mg Tablet Extended Release 24 Hr 50 mg PO QAM Qty: 30 RF: 0 metoprolol succinate 25 mg Tablet Extended Release 24 Hr 25 mg PO HS Qty: 30 RF: 0 polyethylene glycol 3350 [Miralax] 17 gram Powder In Packet 17 g PO DAILY Qty: 30 RF: 0 montelukast [Singulair] 10 mg Tablet 10 mg PO HS Qty: 30 RF: 0 Breo Ellipta 100-25 mcg/dose Blister With Device 1 ea inhalation DAILY Qty: 60 RF: 0 Combivent Respimat 20-100 mcg/actuation Mist 1 puffs inhalation QID PRN (Reason: Wheezing, shortness of breath) Qty: 4 RF: 0 insulin lispro [Humalog KwikPen Insulin] 100 unit/mL insulin pen See Rx Instructions .ROUTE .COMPLEX Qty: 15 RF: 0 Continued multivitamin [Daily-Supriya] Tablet 1 tab PO DAILY RF: 0 amiodarone 200 mg Tablet 200 mg PO BID RF: 0 aspirin [Aspirin Low Dose] 81 mg Tablet,Delayed Release (Dr/Ec) 81 mg PO DAILY RF: 0 pantoprazole 40 mg Tablet,Delayed Release (Dr/Ec) 40 mg PO BID RF: 0 docusate sodium [Stool Softener] 100 mg Capsule 100 mg PO DAILY PRN (Reason: Constipation) RF: 0 lisinopril 5 mg Tablet 5 mg PO DAILY RF: 0 duloxetine 30 mg Capsule,Delayed Release(Dr/Ec) 30 mg PO BID RF: 0 Stiolto Respimat 2.5-2.5 mcg/actuation Mist 2 puff INHALATION DAILY RF: 0 Changed acetaminophen 325 mg Tablet 650 mg PO Q4H PRN (Reason: pain and fever) Qty: 0 RF: 0 loperamide 2 mg Capsule 2 mg PO DAILY PRN (Reason: Brittnee) Qty: 0 RF: 0 furosemide 20 mg Tablet 20 mg PO DAILY PRN (Reason: weight gain) Qty: 0 RF: 0 aripiprazole 5 mg Tablet 5 mg PO HS Qty: 0 RF: 0 Lantus Solostar U-100 Insulin 100 unit/mL (3 mL) Insulin Pen 10 unit SUBCUT DAILY Qty: 0 RF: 0 Discontinued meclizine 25 mg Tablet 25 mg PO TID PRN (Reason: Dizziness) RF: 0 metoprolol succinate 25 mg Tablet Extended Release 24 Hr 25 mg PO DAILY RF: 0 albuterol sulfate [Ventolin HFA] 90 mcg/actuation Hfa Aerosol Inhaler 2 puff INHALATION Q4H PRN (Reason: Wheezing and SOB) RF: 0 Thick-It Powder In Packet 1 ea PO TID RF: 0 insulin aspart U-100 [Novolog Flexpen U-100 Insulin] 100 unit/mL (3 mL) Insulin Pen 0 unit SUBCUT QID RF: 0 Discharge Orders: Discharge Order (Routine); Ordered 06/14/19 Ordered By: Kingsley Camacho Admission Data Admit Date/Time: 06/04/19 11:43 Attending Provider: Kingsley Camacho Admit Provider: Marv Shaw Primary Care Provider: Yan Soto,[employer], [employer] Other Providers: Saira Fisher ; Jese Lewis ; [facility] ; [facility] ; [place] ; Jamey Brown ; Anali Bone Other Interventions: Discharge Summary Assessment (RN) Last Done: 06/14/19 12:29 DC Date/Time DO NOT enter until pt leaves facility: 06/14/19 14:17
== END 2019-06-14 14:17 | DRG 291 ==
LOC: ED 09:52 → SUATTDRO 11:43 → 2S 11:43
DX: I48.0 Paroxysmal atrial fibrillation; I11.0 Hypertensive heart disease with heart failure; R13.10 Dysphagia, unspecified; D64.9 Anemia, unspecified; G89.29 Other chronic pain; E11.9 Type 2 diabetes mellitus without complications; F03.90 Unspecified dementia, unspecified severity, without behavioral disturbance, psychotic disturbance, mood disturbance, and anxiety; R52 Pain, unspecified; F25.9 Schizoaffective disorder, unspecified; G93.41 Metabolic encephalopathy; J44.9 Chronic obstructive pulmonary disease, unspecified; E78.5 Hyperlipidemia, unspecified; K21.9 Gastro-esophageal reflux disease without esophagitis; E66.9 Obesity, unspecified; I34.0 Nonrheumatic mitral (valve) insufficiency; J96.20 Acute and chronic respiratory failure, unspecified whether with hypoxia or hypercapnia; Z68.26 Body mass index [BMI] 26.0-26.9, adult; I50.31 Acute diastolic (congestive) heart failure